=== PATIENT | male | born 1980 | race Caucasian/White ===

== ENCOUNTER 2017-06-06 18:53 | Emergency (ER) | payer MEDICAID, OTHER ==
[2017-06-06] MEDS ORDERED: HYDROCODONE/ACETAMINOPHEN 5-325 MG TABLET PO ONE (19:25)
[2017-06-06] MEDS ORDERED: KETOROLAC TROMETHAMINE 60 MG/2 ML SDV IM ONE (19:26)
--- NOTE | 2017-06-06 20:36 | RADIOLOGY REPORT (SQ) ---
EXAM DESCRIPTION: L SPINE WHOLE; T SPINE AP/LAT COMPLETED DATE/TIME: 06/06/2017 8:24 pm REASON FOR STUDY: back pain COMPARISON: None. FINDINGS: Two view thoracic spine: No fracture or bone lesion. Relatively normal alignment with mi ld multilevel disc space narrowing. Normal soft tissues. Five view lumbosacral spine including obliques: Normal alignment. Mild L5-S1 disc disease. No frac ture or bone lesion or pars defect. Normal visualized pelvis. IMPRESSION: 1. Mild spondylosis in the thoracic and lumbar spine. No fracture or worrisome bone les ion or spinal malalignment. TECHNICAL DOCUMENTATION: JOB ID: [id number]
--- NOTE | 2017-06-06 21:03 | ER Document Report ---
ED General - General Chief Complaint: Back Pain Stated Complaint: BACK PAIN Time Seen by Provider: 06/06/17 19:16 Mode of Arrival: Ambulatory Information source: Patient Notes: Patient is a 37 year old male comes ER with a complaint of back pain. He states it started this Past while moving furniture. He was lifting a large piece of furniture and lost control and twisted and dropped the piece . He denies falling but states he felt pain in the back a few minutes later. He went to work but could not lift anything. He had pain in lunbar region and t-spine area. TRAVEL OUTSIDE OF THE [place] IN LAST 30 DAYS: No - HPI Onset: Other - on 4 days ago. Onset/Duration: Constant, Persistent Quality of pain: Sharp, Throbbing Severity: Moderate Pain Level: 2 Associated symptoms: None Exacerbated by: Standing, Movement, Walking, Deep breathing Relieved by: Supine Similar symptoms previously: No Recently seen / treated by doctor: No - Related Data Allergies/Adverse Reactions: latex [Latex] Allergy (Unknown, Verified 06/06/17 19:02) morphine [Morphine] Allergy (Unknown, Verified 06/06/17 19:02) olanzapine [From Zyprexa] Allergy (Unknown, Verified 06/06/17 19:02) quetiapine fumarate [From Seroquel] Allergy (Unknown, Verified 06/06/17 19:02) Past Medical History - General Information source: Patient - Social History Smoking Status: Current Every Day Smoker Cigarette use (# per day): Yes - 1/2 pack Chew tobacco use (# tins/day): No Smoking Education Provided: Yes Frequency of alcohol use: Rare Drug Abuse: None Lives with: Family Family History: Reviewed & Not Pertinent, Other - Past Medical History Cardiac Medical History: Reports: Hx Hypercholesterolemia, Hx Hypertension Neurological Medical History: Reports: Hx Migraine - Chronic JAMES Renal/ Medical History: Denies: Hx Peritoneal Dialysis GI Medical History: Reports: Hx Gastroesophageal Reflux Disease, Hx Irritable Bowel Psychiatric Medical History: Reports: Hx Attention Deficit Hyperactivity Disorder, Hx Bipolar Disorder, Hx Depression Past Surgical History: Reports: Hx Tonsillectomy - UPPP for sleep apnea, Hx Urinary Tract Surgery - Immunizations Hx Diphtheria, Pertussis, Tetanus Vaccination: Yes Review of Systems - Review of Systems Constitutional: No symptoms reported EENT: No symptoms reported Cardiovascular: No symptoms reported Respiratory: No symptoms reported Gastrointestinal: No symptoms reported Genitourinary: No symptoms reported Male Genitourinary: No symptoms reported Musculoskeletal: Back pain, Muscle pain Skin: No symptoms reported Hematologic/Lymphatic: No symptoms reported Neurological/Psychological: No symptoms reported -: Yes All other systems reviewed and negative Physical Exam - Vital signs Vitals: Temp Pulse Resp BP Pulse Ox 97.8 F 97 20 148/88 H 98 06/06/17 19:02 06/06/17 19:02 06/06/17 19:02 06/06/17 19:02 06/06/17 19:02 Interpretation: Hypertensive - General General appearance: Other - Appears uncomfortable - HEENT Head: Normocephalic, Atraumatic Eyes: Normal Neck: Normal - Respiratory Respiratory status: No respiratory distress Chest status: Nontender Breath sounds: Normal Chest palpation: Normal - Cardiovascular Rhythm: Regular Heart sounds: Normal auscultation Murmur: No - Abdominal Inspection: Normal Distension: No distension Bowel sounds: Normal Tenderness: Nontender Organomegaly: No organomegaly - Back Notes: Patient has mildly reproducible tenderness to palpation along the mid thoracic region down to the Lumbar spine area. Straight leg raises are negative bilaterally. DTR's normal. Vascular exam normal with 2+ pedal pulses bilat. - Extremities General upper extremity: Normal inspection, Nontender General lower extremity: Normal inspection, Nontender Hip: Normal, Nontender Thigh: Normal, Nontender Knee: Normal, Nontender Calf: Normal, Nontender Ankle: Normal, Nontender Foot: Normal, Nontender - Neurological Cognition: Normal Orientation: AAOx4 Rony Coma Scale Eye Opening: Spontaneous [place] Coma Scale Verbal: Oriented Rony Coma Scale Motor: Obeys Commands Rony Coma Scale Total: 15 Knee - Reflex grade: 2 = Normal - Skin Skin Moisture: Dry Skin Color: Normal Course - Vital Signs Vital signs: Temp Pulse Resp BP Pulse Ox 98.1 F 88 16 142/89 H 97 06/06/17 21:17 06/06/17 21:17 06/06/17 21:17 06/06/17 21:17 06/06/17 21:17 - Diagnostic Test Radiology reviewed: Reports reviewed - No acute findings Discharge - Discharge Clinical Impression: Acute thoracic myofascial strain, Acute lumbar myofascial strain Condition: Good Disposition: HOME, SELF-CARE Instructions: Ice Packs ([facility]), Muscle Strain ([facility]), Oral Narcotic Medication ( [facility]) Additional Instructions: Home and rest. Medications prescribed. As we discussed you need to follow-up with a primary care physician. I will highly recommend he establish sooner or later relatively sooner so you can have someone follow this condition. Avoid lifting his anything heavy for approximately 3-4 days with the medication take his time to work to not take the pain medication while working or driving. She generally concerns or problems return to ER for a recheck. Ice to the area 3 times a day. Prescriptions: Hydrocodone/Acetaminophen [Picher 7.5-325 mg Tablet] 1 tab PO QID PRN #12 tablet PRN Reason: For Pain Scale 4-5 Methocarbamol [Robaxin 500 mg Tablet] 500 mg PO BID PRN #20 tablet PRN Reason: Forms: Elevated Blood Pressure
[2017-06-06 21:19] VITALS: BP 142/89
== END 2017-06-06 21:16 | disposition home or self-care (01) ==
LOC: ER 18:53
DX: S29.019A Strain of muscle and tendon of unspecified wall of thorax, initial encounter (principal); S39.012A Strain of muscle, fascia and tendon of lower back, initial encounter; X58.XXXA Exposure to other specified factors, initial encounter; K21.9 Gastro-esophageal reflux disease without esophagitis; E78.00 Pure hypercholesterolemia, unspecified; I10 Essential (primary) hypertension; Z91.040 Latex allergy status; Z88.6 Allergy status to analgesic agent
CPT/HCPCS: 99283; 96372; 72110; 72070; J1885

== ENCOUNTER 2017-06-09 20:43 | Emergency (ER) | payer MEDICAID ==
[2017-06-09 21:17] VITALS: BP 137/83
--- NOTE | 2017-06-09 22:54 | ER Document Report ---
ED General - General Chief Complaint: Back Pain Stated Complaint: BACK PAIN, SKIN PROBLEM ON SHOULDER Time Seen by Provider: 06/09/17 22:31 Notes: Patient is a 37-year-old male who presents with 2 different complaints. First complaint is of back pain. He has been having back pain for over a week. He was seen here a few days ago and had x-rays performed. Patient says he feels as if the pain is in the muscles along his spine. He denies any recent trauma or injuries. 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 He says last few days he has gotten to the point where he cannot roller picker a tray of chicken without it hurting his back. No weakness or numbness into his legs. No weakness or numbness into his upper extremities. No fevers. He was prescribed hydrocodone as well as Robaxin. He says these are not taken away his pain. He is able to walk without difficulty. No loss of bowel control. No urinary tension. Patient second complaint is of a small boil over his right upper back. Patient has obvious folliculitis and says that this morning his back has increased in size over the last day. No fevers. No other complaints at this time. TRAVEL OUTSIDE OF THE [place] IN LAST 30 DAYS: No - Related Data Allergies/Adverse Reactions: latex [Latex] Allergy (Unknown, Verified 06/06/17 19:02) morphine [Morphine] Allergy (Unknown, Verified 06/06/17 19:02) olanzapine [From Zyprexa] Allergy (Unknown, Verified 06/06/17 19:02) quetiapine fumarate [From Seroquel] Allergy (Unknown, Verified 06/06/17 19:02) Past Medical History - Social History Smoking Status: Current Every Day Smoker Frequency of alcohol use: Occasional Drug Abuse: None Family History: Reviewed & Not Pertinent, Other Patient has suicidal ideation: No Patient has homicidal ideation: No - Past Medical History Cardiac Medical History: Reports: Hx Hypercholesterolemia, Hx Hypertension Neurological Medical History: Reports: Hx Migraine - Chronic JAMES Renal/ Medical History: Denies: Hx Peritoneal Dialysis GI Medical History: Reports: Hx Gastroesophageal Reflux Disease, Hx Irritable Bowel Psychiatric Medical History: Reports: Hx Attention Deficit Hyperactivity Disorder, Hx Bipolar Disorder, Hx Depression Past Surgical History: Reports: Hx Tonsillectomy - UPPP for sleep apnea, Hx Urinary Tract Surgery - Immunizations Hx Diphtheria, Pertussis, Tetanus Vaccination: Yes Review of Systems - Review of Systems Notes: My Normal Review Basic REVIEW OF SYSTEMS: CONSTITUTIONAL : Denies fever, chills, or sweats. Denies recent illness.ing, or wheezing. GASTROINTESTINAL: Denies abdominal pain. Denies nausea, vomiting, or diarrhea. GENITOURINARY: Denies difficulty urinating, painful urination, burning, frequency, or blood in urine. MUSCULOSKELETAL: Back pain. SKIN: Small boil over left upper back. NEUROLOGICAL: Denies sensory or motor loss. ALL OTHER SYSTEMS REVIEWED AND NEGATIVE. Physical Exam - Vital signs Vitals: Temp Pulse Resp BP Pulse Ox 98.6 F 88 16 137/83 H 94 06/09/17 21:13 06/09/17 21:13 06/09/17 21:13 06/09/17 21:13 06/09/17 21:13 - Notes Notes: General Appearance: Well nourished, alert, cooperative, no acute distress, no obvious discomfort. Well Appearing. Vitals: reviewed, See vital signs table. Head: no swelling or tenderness to the head Eyes: PERRL, EOMI, Conjuctiva clear Neck: Supple, no neck tenderness, Back: Mild pain to palpation of the thoracic and lumbar paraspinal musculature. No step-offs or deformities or midline tenderness of the spine. Extremities: strength 5/5 in all extremities, good pulses in all extremities, no swelling or tenderness in the extremities, no edema. Skin: Small 1 cm area of induration with localized erythema over the left upper back consistent with a infected hair follicle. Neuro: speech clear, oriented x 3, normal affect, responds appropriately to questions. Distal sensation intact. Patella and Achilles reflexes are intact. Good strength with plantar dorsiflexion against resistance. Patient is able stand and walk without difficulty. Course - Re-evaluation Re-evalutation: 06/09/17 23:05 I did use an 18-gauge needle and did pull a very small amount of pus from the small boil her left back. There is very small localizing I do not feel requires a full incision and drainage. Patient will be placed in antibiotics. Patient will be given Toradol to take at home. Is encouraged not to take other NSAID medication to take this medication. Is encouraged to continue to do alternating ice and heat to his back and to continue to walk around without lifting anything heavy. He will be given a work excuse for a few days so that he can go without having to lift anything. Patient encouraged to follow-up with the primary care doctor. Patient encouraged to return to ER immediately if he has fevers, redness or swelling, or feels that the boil or his back is getting worse. Patient agrees with plan will be discharged home. Dictation of this chart was performed using voice recognition software; therefore, there may be some unintended grammatical errors. - Vital Signs Vital signs: Temp Pulse Resp BP Pulse Ox 98.6 F 88 16 137/83 H 94 06/09/17 21:13 06/09/17 21:13 06/09/17 21:13 06/09/17 21:13 06/09/17 21:13 Discharge - Discharge Clinical Impression: Folliculitis Acute thoracic myofascial strain Qualifiers: Encounter type: subsequent encounter Qualified Code(s): S29.019D - Strain of muscle and tendon of unspecified wall of thorax, subsequent encounter Acute lumbar myofascial strain Qualifiers: Encounter type: subsequent encounter Qualified Code(s): S39.012D - Strain of muscle, fascia and tendon of lower back, subsequent encounter Condition: Good Disposition: HOME, SELF-CARE Additional Instructions: PLease take the antibiotic as prescribed. Please do not lift any heavy objects over the next 3 days. It is good to rest, but you should still walk around so that the muscles in you back do not become stiff. Please do not make Motrin, Ibuprofen, Aleve, or aspirin when taking the Toradol. Follow up with a physician in 2-3 days for reevaluation. Return to the ER immediately if you have fevers, increasing swelling or redness over the boil in you back, weakness or numbness into your legs, loss of bowel control, or inability to urinate. Prescriptions: Ketorolac Tromethamine [Toradol 10 mg Tablet] 10 mg PO Q8HP PRN #15 tablet PRN Reason: Pain Scale Of 3 Clindamycin HCl 300 mg PO ASDIR #56 capsule Forms: Return to Work
== END 2017-06-09 23:15 | disposition home or self-care (01) ==
LOC: ER 20:43
DX: S29.019D Strain of muscle and tendon of unspecified wall of thorax, subsequent encounter (principal); S39.012D Strain of muscle, fascia and tendon of lower back, subsequent encounter; L73.9 Follicular disorder, unspecified; M54.9 Dorsalgia, unspecified; L98.9 Disorder of the skin and subcutaneous tissue, unspecified; M54.6 Pain in thoracic spine; F17.200 Nicotine dependence, unspecified, uncomplicated; X50.0XXA Overexertion from strenuous movement or load, initial encounter
CPT/HCPCS: 99283

== ENCOUNTER 2017-07-17 22:49 | Emergency (ER) | payer MEDICAID ==
[2017-07-17 23:20] VITALS: BP 127/88
[2017-07-18] MEDS ORDERED: HYDROCODONE/ACETAMINOPHEN 5-325 MG TABLET PO ONE (00:43)
--- NOTE | 2017-07-18 01:07 | RADIOLOGY REPORT (SQ) ---
EXAM DESCRIPTION: FINGER LEFT CLINICAL HISTORY: thumb hit wall at ice skating rink COMPARISON: None. FINDINGS: Single view of the left hand and 2 views of the left thumb. No acute fracture or dislocation. Normal osseous mineralization. Minimal osteophytic spurring at the first proximal interphalangeal joint. IMPRESSION: No acute fracture or dislocation.
[2017-07-18] MEDS ORDERED: HYDROCODONE/ACETAMINOPHEN 5-325 MG 6 TAB/DSPK PO PRN (01:08)
--- NOTE | 2017-07-18 01:08 | ER Document Report ---
HPI - HPI Patient complains to provider of: thumb injury Onset: This afternoon Onset/Duration: Sudden Quality of pain: Achy Pain Level: 4 Context: Patient states that he was ice skating today and slipped hitting his hand against a wall. Patient complains of left thumb pain. Patient is right-hand dominant. Associated Symptoms: Other - Left thumb injury Exacerbated by: Movement Relieved by: Denies Similar symptoms previously: No Recently seen / treated by doctor: No - ROS ROS below otherwise negative: Yes Systems Reviewed and Negative: Yes All other systems reviewed and negative - MUSCULOSKELETAL Musculoskeletal: REPORTS: Extremity pain - DERM Skin Color: Normal Skin Problems: None Past Medical History - General Information source: Patient - Social History Smoking Status: Current Every Day Smoker Smoking Education Provided: Yes Frequency of alcohol use: Occasional Drug Abuse: None Occupation: [employer] Family History: Reviewed & Not Pertinent, Other - Past Medical History Cardiac Medical History: Reports: Hx Hypercholesterolemia, Hx Hypertension Neurological Medical History: Reports: Hx Migraine - Chronic JAMES Renal/ Medical History: Denies: Hx Peritoneal Dialysis GI Medical History: Reports: Hx Gastroesophageal Reflux Disease, Hx Irritable Bowel Psychiatric Medical History: Reports: Hx Attention Deficit Hyperactivity Disorder, Hx Bipolar Disorder, Hx Depression Past Surgical History: Reports: Hx Tonsillectomy - UPPP for sleep apnea, Hx Urinary Tract Surgery - Immunizations Hx Diphtheria, Pertussis, Tetanus Vaccination: Yes Vertical Provider Document - CONSTITUTIONAL Agree With Documented VS: Yes Exam Limitations: No Limitations General Appearance: WD/WN, No Apparent Distress - INFECTION CONTROL TRAVEL OUTSIDE OF THE [place] IN LAST 30 DAYS: No - HEENT HEENT: Atraumatic, Normocephalic - NECK Neck: Normal Inspection - RESPIRATORY Respiratory: No Respiratory Distress O2 Sat by Pulse Oximetry: 97 - CARDIOVASCULAR Pulses: Normal: Radial - MUSCULOSKELETAL/EXTREMETIES Musculoskeletal/Extremeties: MAEW, FROM, Tender - Left thumb tenderness about MCP and PIP joints, No Edema. negative: Eccymosis Notes: No tendon deficit - NEURO Level of Consciousness: Awake, Alert, Appropriate Motor/Sensory: No Motor Deficit, No Sensory Deficit - DERM Integumentary: Warm, Dry, No Rash Course - Vital Signs Vital signs: Temp Pulse Resp BP Pulse Ox 98.3 F 88 18 127/88 H 97 07/17/17 23:16 07/17/17 23:16 07/17/17 23:16 07/17/17 23:16 07/17/17 23:16 - Diagnostic Test Radiology reviewed: Pending, Image reviewed Procedures - Immobilization Left Thumb Pre-Proc Neuro Vasc Exam: Normal Immobilizer type: Thumb spica Performed by: PCT Post-Proc Neuro Vasc Exam: Normal Alignment checked and good: Yes Discharge - Discharge Clinical Impression: Left thumb sprain Qualifiers: Encounter type: initial encounter Sprain of finger site: unspecified site Qualified Code(s): S63.602A - Unspecified sprain of left thumb, initial encounter Condition: Stable Disposition: HOME, SELF-CARE Instructions: Ice & Elevation ([facility]), Oral Narcotic Medication ([facility]), Sprained Thumb ([facility]), Temporary Splint ([facility]) Additional Instructions: Return immediately for any new or worsening symptoms Followup with your primary care provider, call tomorrow to make a followup appointment Follow-up with reporting specialist for any continued pain or problems Wear splint for the next 4 days and then remove. If still having pain follow- up with orthopedic doctor Prescriptions: Naproxen [Naprosyn 250 Nmg Tablet] 1 tab PO BID #14 tablet Forms: Return to Work Referrals: [facility] [Provider Group] - Follow up as needed
== END 2017-07-18 02:00 | disposition home or self-care (01) ==
LOC: ER 22:49
PROC: 2W3HX1Z Immobilization of Left Thumb using Splint (ICD-10-PCS; principal; 2017-07-17)
DX: S63.602A Unspecified sprain of left thumb, initial encounter (principal); W01.198A Fall on same level from slipping, tripping and stumbling with subsequent striking against other object, initial encounter; F17.210 Nicotine dependence, cigarettes, uncomplicated; E78.00 Pure hypercholesterolemia, unspecified; I10 Essential (primary) hypertension
CPT/HCPCS: 99283

== ENCOUNTER 2017-08-10 20:39 | Emergency (ER) | payer MEDICAID ==
--- NOTE | 2017-08-10 23:44 | ER Document Report ---
HPI - HPI Pain Level: 5 Notes: Patient is a 37-year-old male with history of bipolar presents ED complaining of nasal congestion/discharge, sore throat, dry nonproductive cough, and occasional loose stool 1 day. Patient states that he does need a work note because of his recent illness. He is otherwise eating and drinking without any difficulties. He is urinating normally. Patient does admit to smoking but denies IV drug use. Denies any headache, fever, neck pain, chest pain, palpitations, syncope, shortness of breath, wheeze, dyspnea, abdominal pain, nausea/vomiting, urinary retention, dysuria, hematuria, loss of control of bowel or bladder, numbness/tingling, or rash. - ROS Notes: REVIEW OF SYSTEMS: CONSTITUTIONAL : Denies fever, chills, or sweats. Denies recent illness. EENT: see hpi CARDIOVASCULAR: Denies chest pain. Denies palpitations or racing or irregular heart beat. Denies ankle edema. RESPIRATORY: see hpi. Denies shortness of breath, difficulty breathing, or wheezing. GASTROINTESTINAL: see hpi. no melena, hematochezia. GENITOURINARY: Denies difficulty urinating, painful urination, burning, frequency, blood in urine, or discharge. MUSCULOSKELETAL: Denies back or neck pain or stiffness. Denies joint pain or swelling. SKIN: Denies rash, lesions or sores. NEUROLOGICAL: Denies confusion or altered mental status. Denies passing out or loss of consciousness. Denies dizziness or lightheadedness. Denies headache. Denies weakness or paralysis or loss of use of either side. Denies problems with gait or speech. Denies sensory loss, numbness, or tingling. Denies seizures. PSYCHIATRIC: Denies anxiety or stress. Denies depression, suicidal ideation, or homicidal ideation. ALL OTHER SYSTEMS REVIEWED AND NEGATIVE. Dictation was performed using Vidit voice recognition software - CONSTITUTIONAL Constitutional: REPORTS: Fever - 99.6. DENIES: Chills - EENT EENT: DENIES: Sore Throat, Ear Pain, Eye problems - NEURO Neurology: DENIES: Headache, Weakness, Vision blurred, Dizzinesss / Vertigo - CARDIOVASCULAR Cardiovascular: DENIES: Chest pain - RESPIRATORY Respiratory: DENIES: Trouble Breathing, Coughing - GASTROINTESTINAL Gastrointestinal: DENIES: Abdominal Pain, Black / Bloody Stools - URINARY Urinary: DENIES: Dysuria, Urgency, Frequency - MUSCULOSKELETAL Musculoskeletal: REPORTS: Extremity pain Past Medical History - Social History Smoking Status: Current Every Day Smoker Family History: Reviewed & Not Pertinent, Other Patient has suicidal ideation: No Patient has homicidal ideation: No - Past Medical History Cardiac Medical History: Reports: Hx Hypercholesterolemia, Hx Hypertension Neurological Medical History: Reports: Hx Migraine - Chronic JAMES Renal/ Medical History: Denies: Hx Peritoneal Dialysis GI Medical History: Reports: Hx Gastroesophageal Reflux Disease, Hx Irritable Bowel Psychiatric Medical History: Reports: Hx Attention Deficit Hyperactivity Disorder, Hx Bipolar Disorder, Hx Depression Past Surgical History: Reports: Hx Tonsillectomy - UPPP for sleep apnea, Hx Urinary Tract Surgery - Immunizations Hx Diphtheria, Pertussis, Tetanus Vaccination: Yes Vertical Provider Document - CONSTITUTIONAL Agree With Documented VS: Yes Notes: PHYSICAL EXAMINATION: GENERAL: Well-appearing, well-nourished and in no acute distress. A&Ox4 HEAD: Atraumatic, normocephalic. EYES: Pupils equal round and reactive to light, extraocular movements intact, sclera anicteric, conjunctiva are normal. ENT: EAC clear b/l. TM's intact b/l without erythema, fluid, or perforation. Nares patent and without discharge. oropharynx clear without exudates. No tonsilar hypertrophy or erythema. Moist mucous membranes. No sinus tenderness. Uvula midline. No palatine shift. No tongue protrusion or airway compromise. NECK: Normal range of motion, supple without lymphadenopathy. No ridigity/ meningismus. LUNGS: Breath sounds clear to auscultation bilaterally and equal. No wheezes rales or rhonchi. HEART: Regular rate and rhythm without murmurs, rubs, gallops. ABDOMEN: Soft, nontender, nondistended abdomen. No guarding, no rebound. No masses appreciated. Normal bowel sounds present. No CVA tenderness bilaterally. Extremities: No cyanosis, clubbing, or edema b/l. Peripheral pulses 2+. Capillary refill less than 3 seconds. NEUROLOGICAL: Normal speech, normal gait. Normal sensory, motor exams PSYCH: Normal mood, normal affect. SKIN: Warm, Dry, normal turgor, no rashes or lesions noted. - INFECTION CONTROL TRAVEL OUTSIDE OF THE [place] IN LAST 30 DAYS: No - RESPIRATORY O2 Sat by Pulse Oximetry: 99 Course - Re-evaluation Re-evalutation: 08/11/17 00:55 Patient is an afebrile, well-hydrated, 37-year-old male who presents ED with acute URI, suspect viral at this time. Vitals are stable. PE is otherwise unremarkable. Rapid influenza was negative. No other imaging or labs warranted at this time. Low suspicion for any ACS, PE, pneumothorax, pericarditis, dissection, respiratory compromise, severe dehydration, sepsis, meningitis, or other systemic emergent condition at this time. Patient is aware that his condition can change from initial presentation and he needs to monitor symptoms closely and seek medical attention for any acute changes. Recommend conservative measures for symptoms. Recheck with your PCM in 3-5 days. Return to the ED with any worsening/concerning symptoms otherwise as reviewed in discharge. Patient is in agreement. Work note given. - Vital Signs Vital signs: Temp Pulse Resp BP Pulse Ox 98.9 F 114 H 20 137/90 H 99 08/10/17 20:59 08/10/17 20:59 08/10/17 20:59 08/10/17 20:59 08/10/17 20:59 Discharge - Discharge Clinical Impression: Acute URI Condition: Stable Disposition: HOME, SELF-CARE Instructions: Upper Respiratory Illness ([facility]) Additional Instructions: Maintain adequate fluid and food intake [place] diet ([employer] Bananas, rice, apples, toast, etc tylenol if needed Monitor for any worsening symptoms over the counter cold medication as needed for symptoms Humidified air may help F/u: with your PCM in 3-5 days for a recheck Return to the ED with any worsening symptoms and/or development of fever, headache, chest pain, palpitations, syncope, shortness of breath, trouble breathing, abdominal pain, n/v/d, blood in stool/urine, weakness, or other worsening symptoms that are concerning to you. Aintain adequate fluid intake Take meds as directed Forms: Elevated Blood Pressure, Smoking Cessation Education, Return to Work Referrals: [facility] [Provider Group] - Follow up as needed [facility] [Provider Group] - Follow up as needed
[2017-08-11 01:03] VITALS: BP 146/83
== END 2017-08-11 01:33 | disposition home or self-care (01) ==
LOC: ER 20:39
DX: J02.9 Acute pharyngitis, unspecified (principal); R09.81 Nasal congestion; F17.200 Nicotine dependence, unspecified, uncomplicated; E78.00 Pure hypercholesterolemia, unspecified; I10 Essential (primary) hypertension
CPT/HCPCS: 87804; 99283

== ENCOUNTER 2017-08-12 20:25 | Emergency (ER) | payer MEDICAID ==
[2017-08-12 20:35] VITALS: BP 130/94
[2017-08-12 21:39] LABS: APPEARANCE,URINE CLEAR; BILIRUBIN,URINE NEGATIVE (NEGATIVE); GLUCOSE, URINE NEGATIVE (NEGATIVE); KETONES,URINE NEGATIVE (NEGATIVE); LEUKOCYTE ESTERASE,URINE TRACE (NEGATIVE); NITRITE,URINE NEGATIVE (NEGATIVE); PROTEIN,URINE NEGATIVE (NEGATIVE); URINE SPECIFIC GRAVITY 1.014; UROBILINOGEN,URINE NEGATIVE mg/dL (<2.0)
--- NOTE | 2017-08-12 21:59 | ER Document Report ---
ED General - General Chief Complaint: Diarrhea Stated Complaint: NAUSEA Time Seen by Provider: 08/12/17 21:31 Notes: 37 years old male who was seen here a few days ago, presents today with multiple complaints including runny nose sore throat cough nausea vomited a few times diarrhea, pain over upper limbs and lower limbs and headache. TRAVEL OUTSIDE OF THE [place] IN LAST 30 DAYS: No - Related Data Allergies/Adverse Reactions: latex [Latex] Allergy (Unknown, Verified 06/06/17 19:02) morphine [Morphine] Allergy (Unknown, Verified 06/06/17 19:02) olanzapine [From Zyprexa] Allergy (Unknown, Verified 06/06/17 19:02) quetiapine fumarate [From Seroquel] Allergy (Unknown, Verified 06/06/17 19:02) Past Medical History - Social History Smoking Status: Current Every Day Smoker Chew tobacco use (# tins/day): No Frequency of alcohol use: Occasional Drug Abuse: None Family History: Reviewed & Not Pertinent, Other Patient has suicidal ideation: No Patient has homicidal ideation: No - Past Medical History Cardiac Medical History: Reports: Hx Hypercholesterolemia, Hx Hypertension Neurological Medical History: Reports: Hx Migraine - Chronic JAMES Renal/ Medical History: Denies: Hx Peritoneal Dialysis GI Medical History: Reports: Hx Gastroesophageal Reflux Disease, Hx Irritable Bowel Psychiatric Medical History: Reports: Hx Attention Deficit Hyperactivity Disorder, Hx Bipolar Disorder, Hx Depression Past Surgical History: Reports: Hx Tonsillectomy - UPPP for sleep apnea, Hx Urinary Tract Surgery - Immunizations Hx Diphtheria, Pertussis, Tetanus Vaccination: Yes Review of Systems - Review of Systems Notes: REVIEW OF SYSTEMS: CONSTITUTIONAL : As per history of complain EENT: Denies eye, ear, throat, or mouth pain or symptoms. Denies nasal or sinus congestion or discharge. Denies throat, tongue, or mouth swelling or difficulty swallowing. CARDIOVASCULAR: Denies chest pain. Denies palpitations or racing or irregular heart beat. Denies ankle edema. RESPIRATORY: Denies cough, cold, or chest congestion. Denies shortness of breath, difficulty breathing, or wheezing. GASTROINTESTINAL: Denies abdominal pain or distention. Denies nausea, vomiting , or diarrhea. Denies blood in vomitus, stools, or per rectum. Denies black, tarry stools. Denies constipation. GENITOURINARY: Denies difficulty urinating, painful urination, burning, frequency, blood in urine, or discharge. MUSCULOSKELETAL: Denies back or neck pain or stiffness. Denies joint pain or swelling. SKIN: Denies rash, lesions or sores. HEMATOLOGIC : Denies easy bruising or bleeding. LYMPHATIC: Denies swollen, enlarged glands. NEUROLOGICAL: Denies confusion or altered mental status. Denies passing out or loss of consciousness. Denies dizziness or lightheadedness. Denies headache. Denies weakness or paralysis or loss of use of either side. Denies problems with gait or speech. Denies sensory loss, numbness, or tingling. Denies seizures. PSYCHIATRIC: Denies anxiety or stress. Denies depression, suicidal ideation, or homicidal ideation. ALL OTHER SYSTEMS REVIEWED AND NEGATIVE. Dictation was performed using [employer] voice recognition software PHYSICAL EXAMINATION: GENERAL: Well-appearing, well-nourished and in no acute distress. Obese not seems to be in any distress, when I walked into the room he was laying on the bed with his significant other not showing any discomfort happily talking and laughing. HEAD: Atraumatic, normocephalic. EYES: Pupils equal round and reactive to light, extraocular movements intact, sclera anicteric, conjunctiva are normal. ENT: Nares patent, oropharynx clear without exudates. Moist mucous membranes. NECK: Normal range of motion, supple without lymphadenopathy LUNGS: Breath sounds clear to auscultation bilaterally and equal. No wheezes rales or rhonchi. HEART: Regular rate and rhythm without murmurs ABDOMEN: Soft, nontender, nondistended abdomen. No guarding, no rebound. No masses appreciated. Musculoskeletal: Normal range of motion, no pitting or edema. No cyanosis. NEUROLOGICAL: Cranial nerves grossly intact. Normal speech, normal gait. Normal sensory, motor exams PSYCH: Normal mood, normal affect. SKIN: Warm, Dry, normal turgor, no rashes or lesions noted. Physical Exam - Vital signs Vitals: Temp Pulse Resp BP Pulse Ox 98.7 F 99 24 H 130/94 H 98 08/12/17 20:34 08/12/17 20:34 08/12/17 20:34 08/12/17 20:34 08/12/17 20:34 Course - Vital Signs Vital signs: Temp Pulse Resp BP Pulse Ox 98.7 F 99 24 H 130/94 H 98 08/12/17 20:34 08/12/17 20:34 08/12/17 20:34 08/12/17 20:34 08/12/17 20:34 - Laboratory Result Diagrams: 08/12/17 21:50 08/12/17 21:50 Laboratory results interpreted by me: 08/12/17 08/12/17 21:25 21:50 WBC 14.5 H Absolute Lymphocytes 5.4 H Urine Blood SMALL H Ur Leukocyte Esterase TRACE H - Diagnostic Test Radiology results interpreted by me: 08/12/17 23:22 Chest X ray- rported by radiology -Normal Discharge - Discharge Clinical Impression: Bronchitis Headache Qualifiers: Headache type: unspecified Headache chronicity pattern: acute headache Intractability: not intractable Qualified Code(s): R51 - Headache Condition: Fair Disposition: HOME, SELF-CARE Instructions: Bronchitis ([facility]) Prescriptions: Ketorolac Tromethamine [Toradol 10 mg Tablet] 10 mg PO Q8HP PRN #10 tablet PRN Reason: Azithromycin [Zithromax Tri-Ivan] 500 mg PO DAILY #1 pkg Referrals: [facility] [Provider Group] - Follow up as needed
[2017-08-12 22:04] LABS: ABSOLUTE BASOPHILS # (AUTO) 0.1 10^3/uL (0.0-0.2); ABSOLUTE EOSINOPHILS # (AUTO) 0.1 10^3/uL (0.0-0.6); ABSOLUTE LYMPHOCYTES (AUTO) 5.4 10^3/uL (0.5-4.7); ABSOLUTE NEUT (AUTO) 7.7 10^3/uL (1.7-8.2); BASOPHILS % (AUTO) 0.9 % (0-2); EOSINOPHILS % (AUTO) 0.9 % (0-6); HEMATOCRIT 47.4 % (37.9-51.0); HEMOGLOBIN 16.7 g/dL (13.5-17.0); HGB HCT DIFFERENCE 2.7; LYMPHOCYTES % (AUTO) 37.6 % (13-45); MEAN CORPUSCULAR HEMOGLOBIN 30.9 pg (27.0-33.4); MEAN CORPUSCULAR HGB CONC 35.2 g/dL (32.0-36.0); MEAN CORPUSCULAR VOLUME 88 fl (80-97); RED CELL DISTRIBUTION WIDTH 13.1 % (11.5-14.0); SEGMENTED NEUTROPHILS % (AUTO) 53.6 % (42-78); WHITE BLOOD COUNT 14.5 10^3/uL (4.0-10.5)
[2017-08-12 22:21] LABS: ALANINE AMINOTRANSFERASE 26 U/L (21-72); ALBUMIN 4.4 g/dL (3.5-5.0); ALKALINE PHOSPHATASE 91 U/L (38-126); ANION GAP 14 (5-19); ASPARTATE AMINO TRANSFERASE 23 U/L (17-59); BILIRUBIN,DIRECT 0.2 mg/dL (0.0-0.4); BILIRUBIN,TOTAL 0.3 mg/dL (0.2-1.3); BLOOD UREA NITROGEN 11 mg/dL (7-20); CALCIUM 9.4 mg/dL (8.4-10.2); CARBON DIOXIDE 23 mmol/L (22-30); CHLORIDE 105 mmol/L (98-107); CREATININE RESULT 0.79 mg/dL (0.52-1.25); GLUCOSE 103 mg/dL (75-110); LIPASE 110.4 U/L (23-300); POTASSIUM 3.7 mmol/L (3.6-5.0); SODIUM 141.8 mmol/L (137-145); TOTAL PROTEIN 7.2 g/dL (6.3-8.2)
--- NOTE | 2017-08-12 22:50 | RADIOLOGY REPORT (SQ) ---
EXAM DESCRIPTION: CHEST PA/LAT COMPLETED DATE/TIME: 08/12/2017 10:36 pm REASON FOR STUDY: Cough COMPARISON: 07/28/2013 EXAM PARAMETERS: NUMBER OF VIEWS: two views TECHNIQUE: Digital Frontal and Lateral radiographic views of the chest acquired. RADIATION DOSE: NA LIMITATIONS: none FINDINGS: LUNGS AND PLEURA: No acute opacities, masses or pneumothorax. No pleural effusion. MEDIASTINUM AND HILAR STRUCTURES: No masses or contour abnormalities. HEART AND VASCULAR STRUCTURES: Heart normal size. No evidence for failure. BONES: No acute findings. HARDWARE: None in the chest. OTHER: No other significant finding. IMPRESSION: No acute findings. TECHNICAL DOCUMENTATION: JOB ID: [id number] [place]-72 2010 [employer]- All Rights Reserved
[2017-08-12] MEDS ORDERED: KETOROLAC TROMETHAMINE INJ/PF 30 MG/1 ML SDV IV ONE (23:21)
[2017-08-12] MEDS ORDERED: AZITHROMYCIN 250 MG TABLET PO ONE (23:26)
== END 2017-08-13 00:24 | disposition home or self-care (01) ==
LOC: ER 20:25
DX: J40 Bronchitis, not specified as acute or chronic (principal); J02.9 Acute pharyngitis, unspecified; R51 Headache; R11.2 Nausea with vomiting, unspecified; R09.89 Other specified symptoms and signs involving the circulatory and respiratory systems; R05 Cough; F17.200 Nicotine dependence, unspecified, uncomplicated; I10 Essential (primary) hypertension; Z91.040 Latex allergy status; Z88.5 Allergy status to narcotic agent; Z88.8 Allergy status to other drugs, medicaments and biological substances; Z87.19 Personal history of other diseases of the digestive system; Z86.69 Personal history of other diseases of the nervous system and sense organs
CPT/HCPCS: 99284; 96374; 36415; 83690; 85025; 80053; 81001; 71020; Q0144; J1885

== ENCOUNTER 2017-08-25 13:40 | Emergency (ER) | payer MEDICAID ==
[2017-08-25] MEDS ORDERED: ONDANSETRON HCL INJ/PF 4 MG/2 ML SDV IV ONE (14:19)
--- NOTE | 2017-08-25 14:22 | ER Document Report ---
ED Medical Screen (RME) - General Chief Complaint: Abdominal Pain Stated Complaint: ABDOMINAL PAIN Time Seen by Provider: 08/25/17 14:14 Notes: 37-year-old male past medical history IBS here with complaints of epigastric abdominal pain and nausea. He states that this is different pain from his "IBS pain" in the his usual baseline pain is in the lower abdomen. His IBS does not usually cause him to have upper abdominal pain. He has had nausea but no vomiting. He has diarrhea at baseline and this is unchanged. He has tried nausea medication at home with minimal relief. Has not taken anything for the pain however. EXAM Minimal epigastric tenderness to palpation No right upper quadrant tenderness to palpation No peritoneal signs TRAVEL OUTSIDE OF THE [place] IN LAST 30 DAYS: No - Related Data Allergies/Adverse Reactions: latex [Latex] Allergy (Unknown, Verified 08/25/17 13:40) morphine [Morphine] Allergy (Unknown, Verified 08/25/17 13:40) olanzapine [From Zyprexa] Allergy (Unknown, Verified 08/25/17 13:40) quetiapine fumarate [From Seroquel] Allergy (Unknown, Verified 08/25/17 13:40) Home Medications: Current Home Medications No Home Medications 08/25/17 [History] Past Medical History - Social History Frequency of alcohol use: Occasional Drug Abuse: None - Past Medical History Cardiac Medical History: Reports: Hx Hypercholesterolemia, Hx Hypertension Neurological Medical History: Reports: Hx Migraine - Chronic JAMES Renal/ Medical History: Denies: Hx Peritoneal Dialysis GI Medical History: Reports: Hx Gastroesophageal Reflux Disease, Hx Irritable Bowel Psychiatric Medical History: Reports: Hx Attention Deficit Hyperactivity Disorder, Hx Bipolar Disorder, Hx Depression Past Surgical History: Reports: Hx Tonsillectomy - UPPP for sleep apnea, Hx Urinary Tract Surgery - Immunizations Hx Diphtheria, Pertussis, Tetanus Vaccination: Yes Physical Exam - Vital signs Vitals: Temp Pulse Resp BP Pulse Ox 97.7 F 84 20 143/88 H 99 08/25/17 13:45 08/25/17 13:45 08/25/17 13:45 08/25/17 13:45 08/25/17 13:45 Course - Vital Signs Vital signs: Temp Pulse Resp BP Pulse Ox 97.7 F 84 20 143/88 H 99 08/25/17 13:45 08/25/17 13:45 08/25/17 13:45 08/25/17 13:45 08/25/17 13:45
[2017-08-25 14:52] LABS: ABSOLUTE BASOPHILS # (AUTO) 0.1 10^3/uL (0.0-0.2); ABSOLUTE EOSINOPHILS # (AUTO) 0.1 10^3/uL (0.0-0.6); ABSOLUTE LYMPHOCYTES (AUTO) 4.3 10^3/uL (0.5-4.7); ABSOLUTE MONOCYTES (AUTO) 0.8 10^3/uL (0.1-1.4); ABSOLUTE NEUT (AUTO) 6.8 10^3/uL (1.7-8.2); BASOPHILS % (AUTO) 0.6 % (0-2); EOSINOPHILS % (AUTO) 0.9 % (0-6); HEMATOCRIT 49.6 % (37.9-51.0); LYMPHOCYTES % (AUTO) 35.3 % (13-45); MEAN CORPUSCULAR HEMOGLOBIN 30.2 pg (27.0-33.4); MEAN CORPUSCULAR HGB CONC 34.3 g/dL (32.0-36.0); MEAN CORPUSCULAR VOLUME 88 fl (80-97); MONOCYTES % (AUTO) 6.8 % (3-13); PLATELET COUNT 290 10^3/uL (150-450); RED BLOOD COUNT 5.63 10^6/uL (4.35-5.55); RED CELL DISTRIBUTION WIDTH 13.4 % (11.5-14.0); SEGMENTED NEUTROPHILS % (AUTO) 56.4 % (42-78); TOTAL CELLS COUNTED % (AUTO) 100 %; WHITE BLOOD COUNT 12.1 10^3/uL (4.0-10.5)
[2017-08-25] MEDS ORDERED: ONDANSETRON 4 MG TAB.RAPDIS ONE (14:53)
[2017-08-25 15:07] LABS: ALANINE AMINOTRANSFERASE 34 U/L (21-72); ALBUMIN 4.6 g/dL (3.5-5.0); ALKALINE PHOSPHATASE 91 U/L (38-126); ANION GAP 11 (5-19); ASPARTATE AMINO TRANSFERASE 24 U/L (17-59); BILIRUBIN,DIRECT 0.2 mg/dL (0.0-0.4); BILIRUBIN,TOTAL 0.4 mg/dL (0.2-1.3); BLOOD UREA NITROGEN 9 mg/dL (7-20); CALCIUM 9.8 mg/dL (8.4-10.2); CARBON DIOXIDE 26 mmol/L (22-30); CHLORIDE 104 mmol/L (98-107); GLUCOSE 86 mg/dL (75-110); LIPASE 85.1 U/L (23-300); POTASSIUM 4.1 mmol/L (3.6-5.0); SODIUM 140.9 mmol/L (137-145); TOTAL PROTEIN 7.6 g/dL (6.3-8.2)
[2017-08-25] MEDS ORDERED: MAG HYDROX/AL HYDROX/SIMETH SUSP 30 ML UDCUP PO ONE (15:58)
[2017-08-25] MEDS ORDERED: LIDOCAINE 2% VISCOUS SOLN 20 ML UDCUP PO ONE (15:58)
[2017-08-25] MEDS ORDERED: METOCLOPRAMIDE HCL ORAL SOLN 10 MG/10 ML UDCUP PO ONE (15:58)
--- NOTE | 2017-08-25 16:04 | ER Document Report ---
ED General - General Chief Complaint: Abdominal Pain Stated Complaint: ABDOMINAL PAIN Time Seen by Provider: 08/25/17 14:14 TRAVEL OUTSIDE OF THE [place] IN LAST 30 DAYS: No - HPI Notes: Patient is a 37-year-old male with a history of IBS who presents to the ED complaining of epigastric pain that began on Wednesday which led to nausea and vomiting for the next 1-2 days. Patient states that he has had nausea today without any vomiting. Patient continues to have soreness to his epigastrium. Patient has been keeping fluids down today, but has not been trying to eat any solids. Patient states that he has chronic issues with diarrhea, but has not noticed any acute changes. He denies any other recent illness. Patient states that he did eat clams the day before his symptoms began which is relatively new for him. He has no other concerns or complaints at this time. Denies any headache, fever, neck pain, URI, sore throat, chest pain, palpitations, syncope , cough, shortness of breath, wheeze, dyspnea, melena, hematochezia, hematemesis , urinary retention, dysuria, hematuria, or rash. - Related Data Allergies/Adverse Reactions: latex [Latex] Allergy (Unknown, Verified 08/25/17 13:40) morphine [Morphine] Allergy (Unknown, Verified 08/25/17 13:40) olanzapine [From Zyprexa] Allergy (Unknown, Verified 08/25/17 13:40) quetiapine fumarate [From Seroquel] Allergy (Unknown, Verified 08/25/17 13:40) Past Medical History - Social History Smoking Status: Current Every Day Smoker Frequency of alcohol use: Occasional Drug Abuse: None Family History: Reviewed & Not Pertinent, Other Patient has suicidal ideation: No Patient has homicidal ideation: No - Past Medical History Cardiac Medical History: Reports: Hx Hypercholesterolemia, Hx Hypertension Neurological Medical History: Reports: Hx Migraine - Chronic JAMES Renal/ Medical History: Denies: Hx Peritoneal Dialysis GI Medical History: Reports: Hx Gastroesophageal Reflux Disease, Hx Irritable Bowel Psychiatric Medical History: Reports: Hx Attention Deficit Hyperactivity Disorder, Hx Bipolar Disorder, Hx Depression Past Surgical History: Reports: Hx Tonsillectomy - UPPP for sleep apnea, Hx Urinary Tract Surgery - Immunizations Hx Diphtheria, Pertussis, Tetanus Vaccination: Yes Review of Systems - Review of Systems Notes: REVIEW OF SYSTEMS: CONSTITUTIONAL : Denies fever, chills, or sweats. Denies recent illness. EENT: Denies eye, ear, throat, or mouth pain or symptoms. Denies nasal or sinus congestion or discharge. Denies throat, tongue, or mouth swelling or difficulty swallowing. CARDIOVASCULAR: Denies chest pain. Denies palpitations or racing or irregular heart beat. Denies ankle edema. RESPIRATORY: Denies cough, cold, or chest congestion. Denies shortness of breath, difficulty breathing, or wheezing. GASTROINTESTINAL: see hpi GENITOURINARY: Denies difficulty urinating, painful urination, burning, frequency, blood in urine, or discharge. MUSCULOSKELETAL: Denies back or neck pain or stiffness. Denies joint pain or swelling. SKIN: Denies rash, lesions or sores. NEUROLOGICAL: Denies confusion or altered mental status. Denies passing out or loss of consciousness. Denies dizziness or lightheadedness. Denies headache. Denies problems with gait or speech. Denies sensory loss, numbness , or tingling. Denies seizures. ALL OTHER SYSTEMS REVIEWED AND NEGATIVE. Dictation was performed using [employer] voice recognition software Physical Exam - Vital signs Vitals: Temp Pulse Resp BP Pulse Ox 97.7 F 84 20 143/88 H 99 08/25/17 13:45 08/25/17 13:45 08/25/17 13:45 08/25/17 13:45 08/25/17 13:45 Notes: PHYSICAL EXAMINATION: GENERAL: Well-appearing, well-nourished and in no acute distress. A&Ox4 HEAD: Atraumatic, normocephalic. EYES: Pupils equal round and reactive to light, extraocular movements intact, sclera anicteric, conjunctiva are normal. ENT: Nares patent and without discharge. oropharynx clear without exudates. No tonsilar hypertrophy or erythema. Moist mucous membranes. NECK: Normal range of motion, supple without lymphadenopathy LUNGS: Breath sounds clear to auscultation bilaterally and equal. No wheezes rales or rhonchi. HEART: Regular rate and rhythm without murmurs, rubs, gallops. ABDOMEN: Soft, nondistended abdomen. No guarding, no rebound. No masses appreciated. Normal bowel sounds present. No CVA tenderness bilaterally. + epigastric tenderness. Lucero negative. McBurney's point negative. Musculoskeletal: FROM to passive/active. Strength 5+/5. Extremities: No cyanosis, clubbing, or edema b/l. Peripheral pulses 2+. Capillary refill less than 3 seconds. NEUROLOGICAL: Cranial nerves grossly intact. Normal speech, normal gait. Normal sensory, motor exams PSYCH: Normal mood, normal affect. SKIN: Warm, Dry, normal turgor, no rashes or lesions noted. Course - Re-evaluation Re-evalutation: 08/25/17 17:13 Patient is an afebrile, well-hydrated, 37-year-old male who presents to the ED with epigastric pain, suspect gastritis vs GERD vs viral illness. Vitals are stable. PE is otherwise unremarkable. Chest x-ray was unremarkable for any acute pathology. CBC showed a mildly elevated white count without shift, correlates well with vomiting yesterday. CMP and lipase are unremarkable for any acute pathology including liver enzymes. Patient has been in no distress while in the ED and has not been visualized to appear in any discomfort whatsoever. Patient does not believe that the GI cocktail helped him. Pt has been drinking shabana sonia in the ED w/o difficulties. Low suspicion/risk for acute appendicitis, bowel obstruction, acute cholecystitis, perforated diverticulitis, incarcerated hernia, pancreatitis, perforated ulcer, peritonitis , sepsis, testicular torsion, or other systemic emergent condition at this time. Patient is aware that his condition can change from initial presentation and he needs to monitor symptoms closely and seek medical attention if any acute changes. I will send him home with a prescription for omeprazole, zofran , and Carafate to take as directed. Conservative measures otherwise for symptoms. Recheck with PCM in 3-5 days. Consider consult with a information coordinator. Return to the ED with any worsening/concerning symptoms otherwise as reviewed in discharge. Patient is in agreement. 08/25/17 17:27 Bc of patient's demeanor, I did have Jennifer, nurse, in the room with me during disharge as I have had issues in the past with this patient with treatment plans and becoming angry. The discharge was very cordial and we did not have any issues thereafter. All of the patients questions were answered and he understands his lab/imaging results as well as his treatment plan. Pt did request a work note. - Vital Signs Vital signs: Temp Pulse Resp BP Pulse Ox 97.7 F 84 20 143/88 H 99 08/25/17 13:45 08/25/17 13:45 08/25/17 13:45 08/25/17 13:45 08/25/17 13:45 - Laboratory Result Diagrams: 08/25/17 14:34 08/25/17 14:34 Laboratory results interpreted by me: 08/25/17 14:34 WBC 12.1 H RBC 5.63 H Discharge - Discharge Clinical Impression: Epigastric pain Condition: Stable Disposition: HOME, SELF-CARE Instructions: Abdominal Pain ([facility]), Antinausea Medication ([facility]), Low-Fat Diet ( [facility]) Additional Instructions: Maintain adequate fluid and food intake [place] diet ([employer] Bananas, rice, apples, toast, etc Zofran as needed tylenol if needed Take medications as directed Monitor for any worsening symptoms Make sure you are staying hydrated enough to urinate and have normal BM's Recheck with your PCM in 3-5 days Consider consult with Gastroenterology for ongoing/worsening symptoms Return to the ED with any worsening symptoms and/or development of fever, headache, chest pain, palpitations, syncope, shortness of breath, trouble breathing, abdominal pain, n/v/d, blood in stool/urine, weakness, or other worsening symptoms that are concerning to you. Prescriptions: Omeprazole 20 mg PO DAILY #30 tablet. Ondansetron [Zofran Odt 4 mg Tablet] 1 - 2 tab PO Q4H PRN #15 tab.rapdis PRN Reason: For Nausea/Vomiting Sucralfate [Carafate] 1 gm PO QID PRN #420 ml PRN Reason: Forms: Elevated Blood Pressure, Return to Work Referrals: MONIK DNIG MD [ACTIVE STAFF] - Follow up as needed
--- NOTE | 2017-08-25 16:18 | RADIOLOGY REPORT (SQ) ---
EXAM DESCRIPTION: CHEST PA/LAT COMPLETED DATE/TIME: 08/25/2017 4:09 pm REASON FOR STUDY: epigastric pain COMPARISON: 08/12/2017. EXAM PARAMETERS: NUMBER OF VIEWS: two views TECHNIQUE: Digital Frontal and Lateral radiographic views of the chest acquired. RADIATION DOSE: NA LIMITATIONS: none FINDINGS: LUNGS AND PLEURA: No opacities, masses or pneumothorax. No pleural effusion. MEDIASTINUM AND HILAR STRUCTURES: No masses or contour abnormalities. HEART AND VASCULAR STRUCTURES: Heart normal size. No evidence for failure. BONES: No acute findings. HARDWARE: None in the chest. OTHER: No other significant finding. IMPRESSION: NO SIGNIFICANT RADIOGRAPHIC FINDING IN THE CHEST. TECHNICAL DOCUMENTATION: JOB ID: [id number] [employer]- All Rights Reserved
[2017-08-25 18:33] VITALS: BP 121/71
== END 2017-08-25 18:33 | disposition home or self-care (01) ==
LOC: ER 13:40
DX: R10.13 Epigastric pain (principal); R11.0 Nausea; R19.7 Diarrhea, unspecified; D72.829 Elevated white blood cell count, unspecified; F17.200 Nicotine dependence, unspecified, uncomplicated; Z91.040 Latex allergy status; Z88.5 Allergy status to narcotic agent; Z88.8 Allergy status to other drugs, medicaments and biological substances
CPT/HCPCS: 99284; 36415; 83690; 85025; 80053; 71020; S0119; J3490 ×3

== ENCOUNTER 2017-09-06 11:35 | Emergency (ER) | payer MEDICAID ==
[2017-09-06] MEDS ORDERED: NORMAL SALINE 1000 ML 1,000 ML IV ONE (12:52)
[2017-09-06] MEDS ORDERED: ONDANSETRON HCL INJ/PF 4 MG/2 ML SDV IV ONE (12:52)
--- NOTE | 2017-09-06 12:54 | ER Document Report ---
ED Medical Screen (RME) - General Chief Complaint: Nausea/Vomiting Stated Complaint: VOMITING,NAUSEA,ABDOMINAL PAIN Time Seen by Provider: 09/06/17 12:51 Notes: Patient presents with severe headache as well as nausea and vomiting. This started yesterday. It is constant. He states that he also has some upper abdominal discomfort. TRAVEL OUTSIDE OF THE [place] IN LAST 30 DAYS: No - Related Data Allergies/Adverse Reactions: latex [Latex] Allergy (Unknown, Verified 09/06/17 11:39) morphine [Morphine] Allergy (Unknown, Verified 09/06/17 11:39) olanzapine [From Zyprexa] Allergy (Unknown, Verified 09/06/17 11:39) quetiapine fumarate [From Seroquel] Allergy (Unknown, Verified 09/06/17 11:39) Past Medical History - Past Medical History Cardiac Medical History: Reports: Hx Hypercholesterolemia, Hx Hypertension Neurological Medical History: Reports: Hx Migraine - Chronic JAMES Renal/ Medical History: Denies: Hx Peritoneal Dialysis GI Medical History: Reports: Hx Gastroesophageal Reflux Disease, Hx Irritable Bowel Psychiatric Medical History: Reports: Hx Attention Deficit Hyperactivity Disorder, Hx Bipolar Disorder, Hx Depression Past Surgical History: Reports: Hx Tonsillectomy - UPPP for sleep apnea, Hx Urinary Tract Surgery - Immunizations Hx Diphtheria, Pertussis, Tetanus Vaccination: Yes Physical Exam - Vital signs Vitals: Temp Pulse Resp BP Pulse Ox 98.7 F 122 H 18 137/115 H 96 09/06/17 11:43 09/06/17 11:43 09/06/17 11:43 09/06/17 11:43 09/06/17 11:43 Course - Vital Signs Vital signs: Temp Pulse Resp BP Pulse Ox 98.7 F 122 H 18 137/115 H 96 09/06/17 11:43 09/06/17 11:43 09/06/17 11:43 09/06/17 11:43 09/06/17 11:43
[2017-09-06 13:17] LABS: HEMATOCRIT 54.2 % (37.9-51.0); HEMOGLOBIN 18.6 g/dL (13.5-17.0); MEAN CORPUSCULAR HEMOGLOBIN 30.3 pg (27.0-33.4); MEAN CORPUSCULAR HGB CONC 34.3 g/dL (32.0-36.0); MEAN CORPUSCULAR VOLUME 88 fl (80-97); PLATELET COUNT 293 10^3/uL (150-450); RED BLOOD COUNT 6.15 10^6/uL (4.35-5.55); RED CELL DISTRIBUTION WIDTH 13.2 % (11.5-14.0); WHITE BLOOD COUNT 20.3 10^3/uL (4.0-10.5)
[2017-09-06 13:39] LABS: ALANINE AMINOTRANSFERASE 35 U/L (21-72); ALBUMIN 5.2 g/dL (3.5-5.0); ALKALINE PHOSPHATASE 111 U/L (38-126); ANION GAP 14 (5-19); ASPARTATE AMINO TRANSFERASE 23 U/L (17-59); BILIRUBIN,DIRECT 0.3 mg/dL (0.0-0.4); BILIRUBIN,TOTAL 0.8 mg/dL (0.2-1.3); BLOOD UREA NITROGEN 14 mg/dL (7-20); CALCIUM 10.4 mg/dL (8.4-10.2); CARBON DIOXIDE 27 mmol/L (22-30); CHLORIDE 101 mmol/L (98-107); GLUCOSE 91 mg/dL (75-110); POTASSIUM 4.9 mmol/L (3.6-5.0); SODIUM 141.5 mmol/L (137-145); TOTAL PROTEIN 8.2 g/dL (6.3-8.2)
[2017-09-06 13:47] LABS: ABSOLUTE MONOCYTES # (MANUAL) 0.4 10^3/uL (0.1-1.4); ABSOLUTE NEUTROPHILS# (MANUAL) 18.9 10^3/uL (1.7-8.2); BAND NEUTROPHILS % (MANUAL) 2 % (3-5); BASOPHILS % (MANUAL) 0 % (0-2); EOSINOPHILS % (MANUAL) 0 % (0-6); LYMPHOCYTES % (MANUAL) 5 % (13-45); MONOCYTES % (MANUAL) 2 % (3-13); PLATELET COMMENT ADEQUATE; RBC MORPHOLOGY COMMENT NORMO-CYTIC/CHROMIC; SEGMENTED NEUTROPHILS % (MAN) 91 % (42-78); TOTAL CELLS COUNTED 100; TOXIC GRANULATION SLIGHT
[2017-09-06 15:04] LABS: APPEARANCE,URINE CLEAR; BILIRUBIN,URINE NEGATIVE (NEGATIVE); COLOR,URINE YELLOW; GLUCOSE, URINE NEGATIVE (NEGATIVE); KETONES,URINE NEGATIVE (NEGATIVE); LEUKOCYTE ESTERASE,URINE NEGATIVE (NEGATIVE); NITRITE,URINE NEGATIVE (NEGATIVE); PROTEIN,URINE NEGATIVE (NEGATIVE); URINE SPECIFIC GRAVITY 1.018; UROBILINOGEN,URINE NEGATIVE mg/dL (<2.0)
--- NOTE | 2017-09-06 16:18 | RADIOLOGY REPORT (SQ) ---
EXAM DESCRIPTION: CT HEAD WITHOUT COMPLETED DATE/TIME: 09/06/2017 4:06 pm REASON FOR STUDY: headache COMPARISON: December 2012 TECHNIQUE: Axial images acquired through the brain without intravenous contrast. Images reviewed wi th bone, brain and subdural windows. Images stored on PACS. All CT scanners at this facility use dose modulation, iterative reconstruction, and/or weight based d osing when appropriate to reduce radiation dose to as low as reasonably achievable (ALARA). [facility]: Dose Right [facility]: CareDose [facility]: Dose Right [facility]: Teradose 4D [facility]: [employer] RADIATION DOSE: CT Rad equipment meets quality standard of care and radiation dose reduction techniq ues were employed. CTDIvol: 49.0 mGy. DLP: 881 mGy-cm. mGy. LIMITATIONS: None. FINDINGS: VENTRICLES: Normal size and contour. CEREBRUM: No masses. No hemorrhage. No midline shift. No evidence for acute infarction. Normal gra y/white matter differentiation. No areas of low density in the white matter. CEREBELLUM: No masses. No hemorrhage. No alteration of density. No evidence for acute infarction. EXTRAAXIAL SPACES: No fluid collections. No masses. ORBITS AND GLOBE: No intra- or extraconal masses. Normal contour of globe without masses. CALVARIUM: No fracture. PARANASAL SINUSES: No fluid or mucosal thickening. SOFT TISSUES: No mass or hematoma. OTHER: No other significant finding. IMPRESSION: NORMAL BRAIN CT WITHOUT CONTRAST. EVIDENCE OF ACUTE STROKE: NO. COMMENT: Quality ID # [id number]: Final reports with documentation of one or more dose reduction techniques (e.g., Automated exposure control, adjustment of the mA and/or kV according to patient size, use of iterative reconstruction technique) TECHNICAL DOCUMENTATION: JOB ID: [id number] [employer]- All Rights Reserved
--- NOTE | 2017-09-06 16:31 | RADIOLOGY REPORT (SQ) ---
EXAM DESCRIPTION: CT ABD/PELVIS WITH IV ORAL COMPLETED DATE/TIME: 09/06/2017 4:12 pm REASON FOR STUDY: abd pain, vomiting COMPARISON: None. TECHNIQUE: CT scan of the abdomen and pelvis performed using helical scanning technique with dynamic intravenous contrast injection and oral contrast. Images reviewed with lung, soft tissue, and bone w indows. Reconstructed coronal and sagittal MPR images reviewed. Delayed images for evaluation of the urinary system also acquired. All images stored on PACS. All CT scanners at this facility use dose modulation, iterative reconstruction, and/or weight based d osing when appropriate to reduce radiation dose to as low as reasonably achievable (ALARA). [facility]: Dose Right [facility]: CareDose [facility]: Dose Right [facility]: Teradose 4D [facility]: [facility] CONTRAST TYPE AND DOSE: contrast/concentration: Isovue 370.00 mg/ml; Total Contrast Delivered: 100.0 ml; Total Saline Delivered: 25.7 ml RENAL FUNCTION: None required. The patient is less than 50 years old. RADIATION DOSE: CT Rad equipment meets quality standard of care and radiation dose reduction techniq ues were employed. CTDIvol: 25.9 - 29.3 mGy. DLP: 3225 mGy-cm.. LIMITATIONS: None. FINDINGS: LOWER CHEST: No significant findings. No nodules or infiltrates. LIVER: Normal size. No masses. No dilated ducts. SPLEEN: Normal size. No focal lesions. PANCREAS: No masses. No significant calcifications. No adjacent inflammation or peripancreatic fluid collections. Pancreatic duct not dilated. GALLBLADDER: No identified stones by CT criteria. No inflammatory changes to suggest cholecystitis. ADRENAL GLANDS: No significant masses or asymmetry. RIGHT KIDNEY AND URETER: No solid masses. No significant calcifications. No hydronephrosis or hyd roureter. LEFT KIDNEY AND URETER: No solid masses. No significant calcifications. No hydronephrosis or hydr oureter. AORTA AND VESSELS: No aneurysm. No dissection. Renal arteries, SMA, celiac without stenosis. RETROPERITONEUM: No retroperitoneal adenopathy, hemorrhage or masses. BOWEL AND PERITONEAL CAVITY: No masses or inflammatory changes. No free fluid or peritoneal masses. An oral contrast filled stomach is identified. There is some apparent narrowing of the 2nd portion o f the duodenum between the gallbladder and pancreatic head and the possibility of a partial gastric o utlet obstruction cannot be excluded. No oral contrast is identified distal to the stomach. Clinica l correlation is recommended. APPENDIX: Normal. PELVIS: No mass. No free fluid. Normal bladder. ABDOMINAL WALL: No masses. No hernias. BONES: No significant or acute findings. OTHER: No other significant finding. IMPRESSION: And oral contrast filled stomach is identified. There is some apparent narrowing of the 2nd portion of the duodenum between the gallbladder and pancreatic head and the possibility of a par tial gastric outlet obstruction cannot be excluded. No oral contrast is identified distal to the sto mach. Clinical correlation is recommended. Other findings as noted above TECHNICAL DOCUMENTATION: JOB ID: [id number] Quality ID # [id number]: Final reports with documentation of one or more dose reduction techniques (e.g., Au tomated exposure control, adjustment of the mA and/or kV according to patient size, use of iterative reconstruction technique) 2010 [employer]- All Rights Reserved
--- NOTE | 2017-09-06 17:13 | ER Document Report ---
ED General - General Chief Complaint: Nausea/Vomiting Stated Complaint: VOMITING,NAUSEA,ABDOMINAL PAIN Time Seen by Provider: 09/06/17 12:51 Mode of Arrival: Medic Information source: Patient Notes: 37-year-old male presents with complaints of nausea vomiting after he was drinking last night. Patient denies any lower abdominal pain notes he is having epigastric and left upper quadrant abdominal pain. Patient denies any fevers or chills. Patient notes he has been here multiple times recently with nausea and vomiting. Patient denies any neck pain or neck stiffness but admits to headache after drinking. TRAVEL OUTSIDE OF THE [place] IN LAST 30 DAYS: No - HPI Onset: Just prior to arrival Onset/Duration: Sudden Quality of pain: Cramping Severity: Mild Pain Level: 1 Associated symptoms: Nausea, Vomiting Exacerbated by: Food, Other - Alcohol Relieved by: Denies Similar symptoms previously: Yes Recently seen / treated by doctor: Yes - Related Data Allergies/Adverse Reactions: latex [Latex] Allergy (Unknown, Verified 09/06/17 11:39) morphine [Morphine] Allergy (Unknown, Verified 09/06/17 11:39) olanzapine [From Zyprexa] Allergy (Unknown, Verified 09/06/17 11:39) quetiapine fumarate [From Seroquel] Allergy (Unknown, Verified 09/06/17 11:39) Past Medical History - Social History Smoking Status: Current Every Day Smoker Cigarette use (# per day): Yes Chew tobacco use (# tins/day): No Smoking Education Provided: No Frequency of alcohol use: None Drug Abuse: None Family History: Reviewed & Not Pertinent, Other Patient has suicidal ideation: No Patient has homicidal ideation: No - Past Medical History Cardiac Medical History: Reports: Hx Hypercholesterolemia, Hx Hypertension Neurological Medical History: Reports: Hx Migraine - Chronic JAMES Renal/ Medical History: Denies: Hx Peritoneal Dialysis GI Medical History: Reports: Hx Gastroesophageal Reflux Disease, Hx Irritable Bowel Psychiatric Medical History: Reports: Hx Attention Deficit Hyperactivity Disorder, Hx Bipolar Disorder, Hx Depression Past Surgical History: Reports: Hx Tonsillectomy - UPPP for sleep apnea, Hx Urinary Tract Surgery - Immunizations Hx Diphtheria, Pertussis, Tetanus Vaccination: Yes Review of Systems - Review of Systems Notes: REVIEW OF SYSTEMS: CONSTITUTIONAL : Denies fever, chills, or sweats. Denies recent illness. EENT: Denies eye, ear, throat, or mouth pain or symptoms. Denies nasal or sinus congestion or discharge. Denies throat, tongue, or mouth swelling or difficulty swallowing. CARDIOVASCULAR: Denies chest pain. Denies palpitations or racing or irregular heart beat. Denies ankle edema. RESPIRATORY: Denies cough, cold, or chest congestion. Denies shortness of breath, difficulty breathing, or wheezing. GASTROINTESTINAL: Admits to nausea vomiting GENITOURINARY: Denies difficulty urinating, painful urination, burning, frequency, blood in urine, or discharge. MUSCULOSKELETAL: Denies back or neck pain or stiffness. Denies joint pain or swelling. SKIN: Denies rash, lesions or sores. HEMATOLOGIC : Denies easy bruising or bleeding. LYMPHATIC: Denies swollen, enlarged glands. NEUROLOGICAL: Admits to headache PSYCHIATRIC: Denies anxiety or stress. Denies depression, suicidal ideation, or homicidal ideation. ALL OTHER SYSTEMS REVIEWED AND NEGATIVE. Dictation was performed using [employer] voice recognition software PHYSICAL EXAMINATION: GENERAL: Well-appearing, well-nourished and in no acute distress. Patient is happy laughing with his significant other does not appear nauseous at all HEAD: Atraumatic, normocephalic. EYES: Pupils equal round and reactive to light, extraocular movements intact, sclera anicteric, conjunctiva are normal. ENT: Nares patent, oropharynx clear without exudates. Moist mucous membranes. NECK: Normal range of motion, supple without lymphadenopathy LUNGS: Breath sounds clear to auscultation bilaterally and equal. No wheezes rales or rhonchi. HEART: Regular rate and rhythm without murmurs ABDOMEN: Soft, tender in epigastric region no rebound or guarding Musculoskeletal: Normal range of motion, no pitting or edema. No cyanosis. NEUROLOGICAL: Cranial nerves grossly intact. Normal speech, normal gait. Normal sensory, motor exams PSYCH: Normal mood, normal affect. SKIN: Warm, Dry, normal turgor, no rashes or lesions noted. Physical Exam - Vital signs Vitals: Temp Pulse Resp BP Pulse Ox 98.7 F 122 H 18 137/115 H 96 09/06/17 11:43 09/06/17 11:43 09/06/17 11:43 09/06/17 11:43 09/06/17 11:43 Course - Re-evaluation Re-evalutation: 09/06/17 20:09 Given elevated white count initial concern is for an infectious process, patient is in no distress throughout his whole visit, he is noted to be resting comfortably was sleeping on multiple re-evaluations. It appears patient's vomiting and epigastric pain caused white count elevation is a CT did not note any acute abnormality. CT of the head was also performed given his complaint of headache but given the lack of fever and altered mental status no neck stiffness I have no suspicion for meningitis, I did however explain my concerns initially to the patient and he denies any complaints as well or concerns CT was concerning for a abdominal outlet obstruction, given that the largest causes gastric reflux and the patient has gastric reflux I will treat him as if this is the cause of the patient's complaints. Patient will be treated for H. pylori, very strict return precautions have been provided and explained Patient states he understands and copies have been provided to him since his father is a retired physician assistant drafter After performing a Medical Screening Examination, I estimate there is LOW risk for ACUTE APPENDICITIS, BOWEL OBSTRUCTION, ACUTE CHOLECYSTITIS, PERFORATED DIVERTICULITIS, INCARCERATED HERNIA, PANCREATITIS, TESTICULAR TORSION or PERFORATED ULCER, thus I consider the discharge disposition reasonable. Also, there is no evidence or peritonitis, sepsis, or toxicity. I have reevaluated this patient multiple times and no significant life threatening changes are noted. The patient and I have discussed the diagnosis and risks, and we agree with discharging home with close follow-up with the understanding that symptoms and presentations can change. We also discussed returning to the Emergency Department immediately if new or worsening symptoms occur. We have discussed the symptoms which are most concerning (e.g., bloody stool, fever, changing or worsening pain, intractable vomiting - standard verbal up date) that necessitate immediate return. - Vital Signs Vital signs: Temp Pulse Resp BP Pulse Ox 99.1 F 104 H 18 145/91 H 96 09/06/17 17:32 09/06/17 17:32 09/06/17 17:32 09/06/17 17:32 09/06/17 17:32 - Laboratory Result Diagrams: 09/06/17 12:55 09/06/17 12:55 Laboratory results interpreted by me: 09/06/17 09/06/17 12:55 12:55 WBC 20.3 H RBC 6.15 H Hgb 18.6 H Hct 54.2 H Seg Neuts % (Manual) 91 H Band Neutrophils % 2 L Lymphocytes % (Manual) 5 L Monocytes % (Manual) 2 L Abs Neuts (Manual) 18.9 H Calcium 10.4 H Albumin 5.2 H - Diagnostic Test Radiology reviewed: Image reviewed, Reports reviewed Discharge - Discharge Clinical Impression: Epigastric abdominal pain, Abdominal outlet obstruction Nausea & vomiting Qualifiers: Vomiting type: unspecified Vomiting Intractability: non-intractable Qualified Code(s): R11.2 - Nausea with vomiting, unspecified Leukocytosis Qualifiers: Leukocytosis type: unspecified Qualified Code(s): D72.829 - Elevated white blood cell count, unspecified Condition: Stable Disposition: HOME, SELF-CARE Instructions: Nausea or Vomiting, Nonspecific ([facility]) Additional Instructions: You must return if there are any signs of fevers and concerns Prescriptions: Clarithromycin 500 mg PO Q8 14 Days tablet Metoclopramide HCl [Reglan 10 mg Tablet] 1 - 2 tab PO Q6 #25 tablet Omeprazole 40 mg PO DAILY #40 capsule.dr Forms: Return to Work Referrals: MONIK DING MD [ACTIVE STAFF] - Follow up tomorrow
[2017-09-06 17:33] VITALS: BP 145/91
== END 2017-09-06 17:33 | disposition home or self-care (01) ==
LOC: ER 11:35
DX: K31.1 Adult hypertrophic pyloric stenosis (principal); K21.9 Gastro-esophageal reflux disease without esophagitis; R11.2 Nausea with vomiting, unspecified; R10.13 Epigastric pain; R10.12 Left upper quadrant pain; I10 Essential (primary) hypertension; D72.829 Elevated white blood cell count, unspecified; F17.210 Nicotine dependence, cigarettes, uncomplicated; Z91.040 Latex allergy status; Z88.5 Allergy status to narcotic agent; Z88.8 Allergy status to other drugs, medicaments and biological substances; Z87.19 Personal history of other diseases of the digestive system
CPT/HCPCS: 99284; 96361; 96374; 36415; 83690; 85025; 80053; 81001; 70450; 74177; J2405; J7030

== ENCOUNTER 2017-09-08 21:23 | Emergency (ER) | payer MEDICAID ==
[2017-09-08 23:46] LABS: APPEARANCE,URINE SLIGHTLY-CLOUDY; BILIRUBIN,URINE NEGATIVE (NEGATIVE); COLOR,URINE YELLOW; GLUCOSE, URINE NEGATIVE (NEGATIVE); KETONES,URINE NEGATIVE (NEGATIVE); LEUKOCYTE ESTERASE,URINE TRACE (NEGATIVE); NITRITE,URINE NEGATIVE (NEGATIVE); PROTEIN,URINE NEGATIVE (NEGATIVE); URINE SPECIFIC GRAVITY 1.021
[2017-09-08 23:50] LABS: ALANINE AMINOTRANSFERASE 28 U/L (21-72); ALBUMIN 4.5 g/dL (3.5-5.0); ALKALINE PHOSPHATASE 81 U/L (38-126); ANION GAP 14 (5-19); ASPARTATE AMINO TRANSFERASE 21 U/L (17-59); BILIRUBIN,DIRECT 0.2 mg/dL (0.0-0.4); BILIRUBIN,TOTAL 0.6 mg/dL (0.2-1.3); BLOOD UREA NITROGEN 8 mg/dL (7-20); CARBON DIOXIDE 24 mmol/L (22-30); CHLORIDE 104 mmol/L (98-107); GLUCOSE 89 mg/dL (75-110); LIPASE 143.9 U/L (23-300); POTASSIUM 3.7 mmol/L (3.6-5.0); SODIUM 142.4 mmol/L (137-145); TOTAL PROTEIN 7.2 g/dL (6.3-8.2)
[2017-09-09 00:53] LABS: ABSOLUTE BASOPHILS # (AUTO) 0.1 10^3/uL (0.0-0.2); ABSOLUTE EOSINOPHILS # (AUTO) 0.1 10^3/uL (0.0-0.6); ABSOLUTE LYMPHOCYTES (AUTO) 4.6 10^3/uL (0.5-4.7); ABSOLUTE MONOCYTES (AUTO) 1.3 10^3/uL (0.1-1.4); ABSOLUTE NEUT (AUTO) 7.2 10^3/uL (1.7-8.2); BASOPHILS % (AUTO) 0.6 % (0-2); HEMATOCRIT 46.3 % (37.9-51.0); LYMPHOCYTES % (AUTO) 34.6 % (13-45); MEAN CORPUSCULAR HEMOGLOBIN 30.4 pg (27.0-33.4); MEAN CORPUSCULAR HGB CONC 35.2 g/dL (32.0-36.0); MEAN CORPUSCULAR VOLUME 87 fl (80-97); MONOCYTES % (AUTO) 9.5 % (3-13); PLATELET COUNT 248 10^3/uL (150-450); RED BLOOD COUNT 5.35 10^6/uL (4.35-5.55); RED CELL DISTRIBUTION WIDTH 13.1 % (11.5-14.0); SEGMENTED NEUTROPHILS % (AUTO) 54.3 % (42-78); TOTAL CELLS COUNTED % (AUTO) 100 %; WHITE BLOOD COUNT 13.3 10^3/uL (4.0-10.5)
[2017-09-09 00:54] LABS: HEMOGLOBIN 16.3 g/dL (13.5-17.0)
[2017-09-09] MEDS ORDERED: PANTOPRAZOLE SODIUM 40 MG VIAL IV ONE (01:11)
[2017-09-09] MEDS ORDERED: FAMOTIDINE INJ/PF 20 MG/2 ML SDV IV ONE (01:11)
[2017-09-09] MEDS ORDERED: SUCRALFATE 1 GM TABLET PO ONE (01:11)
[2017-09-09] MEDS ORDERED: NORMAL SALINE 1000 ML 1,000 ML IV ONE (01:11)
--- NOTE | 2017-09-09 01:11 | ER Document Report ---
ED GI/ - General Mode of Arrival: Ambulatory Information source: Patient TRAVEL OUTSIDE OF THE [place] IN LAST 30 DAYS: No - HPI Patient complains to provider of: Abdominal pain Onset: Other - last 24 hours Location: Other - see notes above Associated symptoms: Other - see notes above <MARY KOLHER - Last Filed: 09/09/17 01:53> <ARTIYASMIN ANN - Last Filed: 09/09/17 03:52> - General Chief Complaint: Abdominal Pain Stated Complaint: ABDOMINAL PAIN Time Seen by Provider: 09/09/17 01:10 Notes: 37 year old male with history of IBS and a partial small bowel obstruction presents to the ED complaining of increasing abdominal pain over the last 24 hours which starts on the left but radiates to the right. Patient reports that he was here 3 days ago when the partial block was diagnosed. Patient was discharged to follow up with his primary care to get in with GI. Patient has a GI appointment tomorrow morning at [address] Bonilla. Patient told to return to the ED for worsening pain. Patient has been drinking and eating small amounts over the past 24 hours and complains of having vomiting episodes for 4 hours yesterday. Patient has had 1 bowel movement in the last 24 hours and reports small, soft, odd colored stool. Patient has had this abdominal pain for 3 months. (MARY KOHLER) - Related Data Allergies/Adverse Reactions: latex [Latex] Allergy (Unknown, Verified 09/06/17 11:39) morphine [Morphine] Allergy (Unknown, Verified 09/06/17 11:39) olanzapine [From Zyprexa] Allergy (Unknown, Verified 09/06/17 11:39) quetiapine fumarate [From Seroquel] Allergy (Unknown, Verified 09/06/17 11:39) Past Medical History - General Information source: Patient - Social History Smoking Status: Current Every Day Smoker Frequency of alcohol use: Occasional Drug Abuse: None Family History: Reviewed & Not Pertinent, Other Patient has suicidal ideation: No Patient has homicidal ideation: No - Past Medical History Cardiac Medical History: Reports: Hx Hypercholesterolemia, Hx Hypertension Neurological Medical History: Reports: Hx Migraine - Chronic JAMES Renal/ Medical History: Denies: Hx Peritoneal Dialysis GI Medical History: Reports: Hx Gastroesophageal Reflux Disease, Hx Irritable Bowel Psychiatric Medical History: Reports: Hx Attention Deficit Hyperactivity Disorder, Hx Bipolar Disorder, Hx Depression Past Surgical History: Reports: Hx Tonsillectomy - UPPP for sleep apnea, Hx Urinary Tract Surgery - Immunizations Hx Diphtheria, Pertussis, Tetanus Vaccination: Yes <MARY KOHLER - Last Filed: 09/09/17 01:53> Review of Systems - Review of Systems Constitutional: No symptoms reported EENT: No symptoms reported Cardiovascular: No symptoms reported Respiratory: No symptoms reported Gastrointestinal: See HPI, Abdominal pain, Nausea, Vomiting, Last bowel movement - within past 24 hours Genitourinary: No symptoms reported Male Genitourinary: No symptoms reported Musculoskeletal: No symptoms reported Skin: No symptoms reported Hematologic/Lymphatic: No symptoms reported Neurological/Psychological: No symptoms reported -: Yes All other systems reviewed and negative <MARY KOHLER - Last Filed: 09/09/17 01:53> Physical Exam - General General appearance: Alert, Other - appears uncomfortable In distress: None - HEENT Head: Normocephalic, Atraumatic Eyes: Normal Extraocular movements intact: Yes Pupils: PERRL - Respiratory Respiratory status: No respiratory distress Breath sounds: Normal - Cardiovascular Rhythm: Regular Heart sounds: Normal auscultation - Abdominal Inspection: Morbidly Obese. No: Normal Distension: No distension Bowel sounds: Normal Tenderness: Tender - Epigastric TTP. No: Guarding, Rebound - Back Back: Normal, Nontender - Extremities General upper extremity: Normal inspection, Normal ROM General lower extremity: Normal inspection, Normal ROM - Neurological Neuro grossly intact: Yes Cognition: Normal Orientation: AAOx4 [place] Coma Scale Eye Opening: Spontaneous [place] Coma Scale Verbal: Oriented [place] Coma Scale Motor: Obeys Commands Rony Coma Scale Total: 15 Speech: Normal - Psychological Associated symptoms: Normal affect, Normal mood - Skin Skin Temperature: Warm Skin Moisture: Dry Skin Color: Normal <MARY KOHLER - Last Filed: 09/09/17 01:53> - Vital signs Vitals: Temp Pulse Resp BP Pulse Ox 99.0 F 92 22 H 131/92 H 98 09/08/17 21:23 09/08/17 21:23 09/08/17 21:23 09/08/17 21:23 09/08/17 21:23 Course - Laboratory Result Diagrams: 09/09/17 00:37 09/08/17 23:20 <MARY KOHLER - Last Filed: 09/09/17 01:53> - Laboratory Result Diagrams: 09/09/17 00:37 09/08/17 23:20 - Diagnostic Test Radiology reviewed: Image reviewed, Reports reviewed <YASMIN CHI - Last Filed: 09/09/17 03:52> - Re-evaluation Re-evalutation: 09/09/17 03:48 Patient is a 37-year-old male who comes in complaining of epigastric pain. Patient is showing me his CT scan that he has a copy of the report and telling me that it shows a partial small bowel obstruction. Patient has been keeping p.o. down and is having bowel movements today. He has had no further vomiting. Discussed with patient giving medications. Discussed doing CT versus abdominal series. Abdominal series is not showing any evidence for obstructive pattern. Patient does have a lot of stool in his colon on x-ray. Patient has been frustrated and defensive since he has been my patients. States that this hospital his told him multiple times that there is nothing wrong and he knows that there is something wrong. Patient has an appointment with gastroenterology later today. Patient was started on medications 2 days ago for suspected gastritis versus peptic ulcer disease. Patient is in no distress in the emergency department and has been consistently rude and verbally abusive to myself and staff. Patient is currently demanding to leave with a copy of his blood work and imaging reports which I have given him a copy of. Of note, his blood work appears improved from when he was seen on 09/06. Patient informs me that he will be taking this up with administration although he does not want anything else for pain and would like to just leave. Nursing staff is been informed that if the patient continues to be aggressive and/or abusive to nursing staff or myself, he will be escorted by security out of the building. Stable for discharge. (YASMIN CHI) - Vital Signs Vital signs: Temp Pulse Resp BP Pulse Ox 99.0 F 92 22 H 131/92 H 98 09/08/17 21:23 09/08/17 21:23 09/08/17 21:23 09/08/17 21:23 09/08/17 21:23 - Laboratory Laboratory results interpreted by me: 09/08/17 09/09/17 23:20 00:37 WBC 13.3 H Urine Urobilinogen 4.0 H Ur Leukocyte Esterase TRACE H Discharge <MARY KOHLER - Last Filed: 09/09/17 01:53> <YASMIN CHI - Last Filed: 09/09/17 03:52> - Discharge Clinical Impression: Epigastric abdominal pain Condition: Stable Disposition: HOME, SELF-CARE Instructions: Evaluation of Upper Abdominal Pain ([facility]) Additional Instructions: Please follow-up with gastroenterology today as scheduled. Please return if you have any worsening or concerning symptoms. Please avoid alcohol. Scribe Attestation: 09/09/17 03:52 I personally performed the services described in the documentation, reviewed and edited the documentation which was dictated to the scribe in my presence, and it accurately records my words and actions. (YASMIN CHI) Scribe Documentation - Scribe Written by Jackie:: Jackie Caicedo, 09/09/2017 [id number] acting as scribe for :: Arti <MARY KOHLER - Last Filed: 09/09/17 01:53>
--- NOTE | 2017-09-09 02:20 | RADIOLOGY REPORT (SQ) ---
EXAM DESCRIPTION: ACUTE ABDOMEN SERIES CLINICAL HISTORY: evaluate for SBO COMPARISON: 08/25/2017 FINDINGS: Single view of the chest with upright and spine views of the abdomen. Cardiomediastinal silhouette has normal size and contour. No consolidation, pneumothorax, or pleural effusion. Upright and supine views of the abdomen demonstrate scattered air-filled loops of large and small bowel throughout the abdomen without evidence of bowel dilatation. No free intraperitoneal air. Moderate amount stool. No acute osseous abnormalities. IMPRESSION: 1. No acute pulmonary process. 2. Nonobstructive bowel gas pattern.
[2017-09-09 03:56] VITALS: BP 133/71
== END 2017-09-09 03:55 | disposition home or self-care (01) ==
LOC: ER 21:23
DX: R10.13 Epigastric pain (principal); R11.2 Nausea with vomiting, unspecified; R19.5 Other fecal abnormalities; I10 Essential (primary) hypertension; F17.200 Nicotine dependence, unspecified, uncomplicated; Z87.19 Personal history of other diseases of the digestive system; Z91.040 Latex allergy status; Z88.5 Allergy status to narcotic agent
CPT/HCPCS: 99284; 96361; 96374; 96375; 36415; 83690; 85025; 80053; 81001; 74022; S0164; J3490; J7030; S0028

== ENCOUNTER 2017-09-13 11:01 | Day surgery (SDC) | payer MEDICAID ==
[~2017-09-13 11:01] MED LIST: FENTANYL CITRATE INJ/PF 100 MCG/2 ML AMPUL ONE; MIDAZOLAM 2 MG/2 ML INJ ONE; PROPOFOL INJ 200 MG/20 ML VIAL IV ONE
[2017-09-13] MEDS ORDERED: PROPOFOL INJ 200 MG/20 ML VIAL IV ONE (12:19)
[2017-09-13] MEDS ORDERED: SIMETHICONE 80 MG TAB.CHEW ONE (12:41)
[2017-09-13] MEDS ORDERED: SIMETHICONE 80 MG TAB.CHEW PO ONE (12:42)
[2017-09-13 13:14] VITALS: BP 116/85
--- NOTE | 2017-09-13 13:43 | Operative Report ---
Operative Report DATE OF SURGERY: 09/13/17 Operative Report: The risks benefits and alternatives of the procedure explained to the patient in detail and informed consent is obtained.A GIF Olympus video scope was inserted into the patient's mouth and hypopharynx, the esophagus is identified intubated and insufflated, the scope was then advanced through the esophagus stomach and duodenum, the scope was advanced to approximately 180 cm. Retroflexion maneuver is done the esophagus stomach and first and second portions of the duodenum examined PREOPERATIVE DIAGNOSIS: Possible gastric outlet obstruction possible narrowing the second portion of the duodenum. Patient has a history of biliary dyskinesia in the past. Nausea vomiting POSTOPERATIVE DIAGNOSIS: Patent gastric outlet. No stricture noted in the second portion of the duodenum. I suspect a calculus cholecystitis will probably need surgical evaluation. Gastritis status post biopsy rule out Helicobacter pylori OPERATION: [facility] biopsy SURGEON: MONIK DING ANESTHESIA: LMAC TISSUE REMOVED OR ALTERED: As noted above. COMPLICATIONS: None. ESTIMATED BLOOD LOSS: None. INTRAOPERATIVE FINDINGS: As noted above. PROCEDURE: Patient tolerated procedure well. No immediate postprocedure complications are noted. Patient discharged in good condition. Discharge date 09/13/2017. Discharge diet: Regular. Discharge activity: Regular. 2-3 week follow-up to discuss findings. We will place surgical referral for patient. We will await pathology. Patient is instructed to call the office or proceed to the emergency room should there be any further problems or questions.
== END 2017-09-13 13:10 | disposition home or self-care (01) ==
LOC: END 11:01
PROVIDERS: ATTEND Internal Medicine Gastroenterology
PROC: 0DB68ZX Excision of Stomach, Via Natural or Artificial Opening Endoscopic, Diagnostic (ICD-10-PCS; principal; 2017-09-13 14:30)
DX: K29.50 Unspecified chronic gastritis without bleeding (principal); I10 Essential (primary) hypertension; F17.210 Nicotine dependence, cigarettes, uncomplicated; Z88.8 Allergy status to other drugs, medicaments and biological substances; Z88.5 Allergy status to narcotic agent
CPT/HCPCS: 44361; 88342 ×2; 88305 ×2; J2704; J2250; J3010

== ENCOUNTER 2018-02-02 11:23 | Emergency (ER) | payer SELFPAY ==
[2018-02-02] MEDS ORDERED: RINGERS SOLUTION,LACTATED 1,000 ML IV PRN (12:57)
[2018-02-02] MEDS ORDERED: ONDANSETRON HCL INJ/PF 4 MG/2 ML SDV IV ONE (13:01)
--- NOTE | 2018-02-02 13:01 | ER Document Report ---
ED Medical Screen (RME) - General Chief Complaint: Nausea Stated Complaint: NAUSEA Time Seen by Provider: 02/02/18 12:53 Mode of Arrival: Ambulatory Information source: Patient Notes: This is a 37-year-old man who states he ate tuna that was old on Wednesday and has had nausea, vomiting and diarrhea since. He does state he has had some upper abdominal cramping. TRAVEL OUTSIDE OF THE [place] IN LAST 30 DAYS: No - Related Data Allergies/Adverse Reactions: latex [Latex] Allergy (Mild, Verified 02/02/18 11:25) Generalized rash morphine [Morphine] Allergy (Unknown, Verified 02/02/18 11:25) Anaphylaxis olanzapine [From Zyprexa] Allergy (Unknown, Verified 02/02/18 11:25) Psychosis quetiapine fumarate [From Seroquel] Allergy (Unknown, Verified 02/02/18 11:25) Psychosis Past Medical History - Social History Chew tobacco use (# tins/day): No Frequency of alcohol use: Occasional Drug Abuse: None - Past Medical History Cardiac Medical History: Reports: Hx Congestive Heart Failure - anxiety, Hx Hypercholesterolemia, Hx Hypertension - NO MEDICATION Denies: Hx Coronary Artery Disease, Hx Heart Attack Pulmonary Medical History: Denies: Hx Asthma, Hx Bronchitis, Hx COPD, Hx Pneumonia Neurological Medical History: Reports: Hx Migraine. Denies: Hx Cerebrovascular Accident, Hx Seizures Renal/ Medical History: Denies: Hx Peritoneal Dialysis GI Medical History: Reports: Hx Gastroesophageal Reflux Disease, Hx Irritable Bowel Musculoskeltal Medical History: Denies Hx Arthritis Psychiatric Medical History: Reports: Hx Attention Deficit Hyperactivity Disorder, Hx Bipolar Disorder, Hx Depression Past Surgical History: Reports: Hx Tonsillectomy - UPPP for sleep apnea, Hx Urinary Tract Surgery - Immunizations Hx Diphtheria, Pertussis, Tetanus Vaccination: Yes Physical Exam - Vital signs Vitals: Temp Pulse Resp BP Pulse Ox 98.8 F 72 14 142/94 H 98 02/02/18 11:40 02/02/18 11:40 02/02/18 11:40 02/02/18 11:40 02/02/18 11:40 Course - Vital Signs Vital signs: Temp Pulse Resp BP Pulse Ox 98.8 F 72 14 142/94 H 98 02/02/18 11:40 02/02/18 11:40 02/02/18 11:40 02/02/18 11:40 02/02/18 11:40
[2018-02-02 14:03] LABS: ABSOLUTE BASOPHILS # (AUTO) 0.1 10^3/uL (0.0-0.2); ABSOLUTE LYMPHOCYTES (AUTO) 3.5 10^3/uL (0.5-4.7); ABSOLUTE MONOCYTES (AUTO) 0.7 10^3/uL (0.1-1.4); ABSOLUTE NEUT (AUTO) 6.2 10^3/uL (1.7-8.2); BASOPHILS % (AUTO) 0.6 % (0-2); EOSINOPHILS % (AUTO) 0.3 % (0-6); LYMPHOCYTES % (AUTO) 33.4 % (13-45); MEAN CORPUSCULAR HEMOGLOBIN 30.2 pg (27.0-33.4); MEAN CORPUSCULAR HGB CONC 34.7 g/dL (32.0-36.0); MEAN CORPUSCULAR VOLUME 87 fl (80-97); MONOCYTES % (AUTO) 6.8 % (3-13); PLATELET COUNT 253 10^3/uL (150-450); RED BLOOD COUNT 5.63 10^6/uL (4.35-5.55); RED CELL DISTRIBUTION WIDTH 13.3 % (11.5-14.0); SEGMENTED NEUTROPHILS % (AUTO) 58.9 % (42-78); TOTAL CELLS COUNTED % (AUTO) 100 %; WHITE BLOOD COUNT 10.5 10^3/uL (4.0-10.5)
[2018-02-02 14:15] LABS: ALANINE AMINOTRANSFERASE 31 U/L (21-72); ALBUMIN 4.7 g/dL (3.5-5.0); ALKALINE PHOSPHATASE 92 U/L (38-126); ANION GAP 12 (5-19); ASPARTATE AMINO TRANSFERASE 24 U/L (17-59); BILIRUBIN,DIRECT 0.3 mg/dL (0.0-0.4); BILIRUBIN,TOTAL 0.4 mg/dL (0.2-1.3); BLOOD UREA NITROGEN 12 mg/dL (7-20); CALCIUM 10.3 mg/dL (8.4-10.2); CARBON DIOXIDE 24 mmol/L (22-30); CHLORIDE 107 mmol/L (98-107); GLUCOSE 80 mg/dL (75-110); LIPASE 137.3 U/L (23-300); POTASSIUM 4.4 mmol/L (3.6-5.0); SODIUM 142.9 mmol/L (137-145); TOTAL PROTEIN 7.8 g/dL (6.3-8.2)
--- NOTE | 2018-02-02 14:20 | ER Document Report ---
ED GI/ - General Chief Complaint: Nausea Stated Complaint: NAUSEA Time Seen by Provider: 02/02/18 12:53 Mode of Arrival: Ambulatory Notes: Patient is complaining of abdominal cramping and nausea and diarrhea. He thinks is due to some bad tuna fish that he ate Wednesday. He thought that food had been in the refrigerator for 2 or 3 days and has subsequently found out it was and therefore even longer. He does recall that the tunafish was tasting bad about fdc through it. Ever since then, he has been nauseated but has not vomited. He has had generalized abdominal cramping. Has not had any fever. Patient had his gallbladder removed in September. No other abdominal surgeries. Patient has sleep apnea and has had surgery for this condition. Migraine headaches. Anxiety, bipolar, PTSD, ADHD. Patient has been to this emergency department for medical conditions 10 times since the beginning of 2016. TRAVEL OUTSIDE OF THE [place] IN LAST 30 DAYS: No - Related Data Allergies/Adverse Reactions: latex [Latex] Allergy (Mild, Verified 02/02/18 11:25) Generalized rash morphine [Morphine] Allergy (Unknown, Verified 02/02/18 11:25) Anaphylaxis olanzapine [From Zyprexa] Allergy (Unknown, Verified 02/02/18 11:25) Psychosis quetiapine fumarate [From Seroquel] Allergy (Unknown, Verified 02/02/18 11:25) Psychosis Past Medical History - General Information source: Patient - Social History Smoking Status: Current Every Day Smoker Chew tobacco use (# tins/day): No Frequency of alcohol use: Occasional Drug Abuse: None Family History: Reviewed & Not Pertinent, Other Patient has suicidal ideation: No Patient has homicidal ideation: No - Past Medical History Cardiac Medical History: Reports: Hx Congestive Heart Failure - anxiety, Hx Hypercholesterolemia, Hx Hypertension - NO MEDICATION Neurological Medical History: Reports: Hx Migraine GI Medical History: Reports: Hx Gastroesophageal Reflux Disease, Hx Irritable Bowel Psychiatric Medical History: Reports: Hx Attention Deficit Hyperactivity Disorder, Hx Bipolar Disorder, Hx Depression, Hx Post Traumatic Stress Disorder Past Surgical History: Reports: Hx Tonsillectomy - UPPP for sleep apnea, Hx Urinary Tract Surgery - Immunizations Hx Diphtheria, Pertussis, Tetanus Vaccination: Yes Review of Systems - Review of Systems Notes: REVIEW OF SYSTEMS: CONSTITUTIONAL : Denies fever. EENT: Denies eye, ear, nose or mouth or throat pain or other symptoms. CARDIOVASCULAR: Denies chest pain. RESPIRATORY: Denies cough, chest congestion, or shortness of breath. GASTROINTESTINAL: See HPI. GENITOURINARY: Denies difficulty or painful urinating, urinary frequency, blood in urine. MUSCULOSKELETAL: Denies back or neck pain. Denies joint pain or swelling. SKIN: Denies rash or skin lesions. NEUROLOGICAL: Denies LOC or altered mental status. Denies sensory loss or motor deficits. ALL OTHER SYSTEMS REVIEWED AND NEGATIVE. Physical Exam - Vital signs Vitals: Temp Pulse Resp BP Pulse Ox 98.8 F 72 14 142/94 H 98 02/02/18 11:40 02/02/18 11:40 02/02/18 11:40 02/02/18 11:40 02/02/18 11:40 Interpretation: Normal - Notes Notes: PHYSICAL EXAMINATION: GENERAL: Well-appearing, in no acute distress. HEAD: Atraumatic, normocephalic. EYES: Pupils equal round and reactive to light, extraocular movements intact. ENT: oropharynx clear without exudates. Moist mucous membranes. NECK: Normal range of motion, supple. LUNGS: Breath sounds clear and equal bilaterally. HEART: Regular rate and rhythm without murmurs. ABDOMEN: Soft, minimally tender diffusely. No guarding or rebound. No masses. BACK: No tenderness throughout entire back. EXTREMITIES: Normal range of motion without pain. NEUROLOGICAL: Normal speech, normal gait. Normal sensory, motor, and reflex exams. Awake, alert, and oriented x3. Cranial nerves normal. PSYCH: Normal mood, normal affect. SKIN: Warm, dry, no rashes. Course - Re-evaluation Re-evalutation: 02/02/18 14:21 Patient was given a liter of Ringer's lactate. 02/02/18 14:22 Labs are all completely normal. White count is 10,000 with a normal differential. No shift, no bands. - Vital Signs Vital signs: Temp Pulse Resp BP Pulse Ox 98.8 F 72 14 142/94 H 98 02/02/18 11:40 02/02/18 11:40 02/02/18 11:40 02/02/18 11:40 02/02/18 11:40 - Laboratory Result Diagrams: 02/02/18 13:15 02/02/18 13:15 Laboratory results interpreted by me: 02/02/18 02/02/18 13:15 13:15 RBC 5.63 H Calcium 10.3 H Discharge - Discharge Clinical Impression: Abdominal cramping, Diarrhea, Nausea, Food poisoning Condition: Stable Disposition: HOME, SELF-CARE Additional Instructions: Food Poisoning Your symptoms appear to be due to food poisoning. Food poisoning is due to bacterial poisons in food. It occurs when bacteria (usually staph) get into food, then have time to grow before the food is eaten. Symptoms usually begin about an hour after the contaminated food is eaten -- typically abdominal cramps , vomiting, and diarrhea. Refrigeration of food usually prevents food poisoning. Food poisoning usually resolves within a few hours without treatment. The bowel should be rested: nothing by mouth for about four hours, then frequent sips of clear liquids for another six to eight hours. Further treatment may be required for severe or prolonged vomiting, dehydration, or severe abdominal cramping. Call the doctor or come back if symptoms do not resolve within 24 hours, or if you worsen in any way -- for example you develop worsening pain, high fever, or blood in the stools. ABDOMINAL PAIN: There are many causes of abdominal pain. Pain can mean a serious problem requiring surgery (such as appendicitis). It can also be an innocent problem that goes away on its own (such as a viral infection). Often, time must pass to determine the cause of pain. The physician does not feel that hospitalization is necessary, at present. Things may change within the next 24 hours. Call the doctor or come back for re- examination if any problems occur, such as: (1) Pain that becomes more severe, steady, or becomes concentrated in one specific area. Also, pain that is more severe with movement or coughing. (2) Vomiting that persists or becomes more frequent. (3) Blood in the vomitus, urine, or bowel movements. Blood in the stool may have a tarry or black appearance. (4) Shaking chills or fever greater than 100 degrees F. (5) The abdomen becomes more distended or swollen. (6) Bowel movements cease. (7) Failure to improve as expected. Diarrhea Diarrhea means frequent, watery stools. There are many causes. Any problem that keeps the intestinal tract from absorbing water from the stool can lead to diarrhea. A sudden new diarrhea problem is usually caused by a virus, food sensitivity, toxic bacteria, or drugs. In this case, we expect the problem to go away soon. Testing is done only if you seem seriously ill from the diarrhea. If you have chronic diarrhea, or diarrhea that keeps coming back, we need to find out why. Chronic diarrhea can be due to inflammation of the bowels such as Crohn's disease or ulcerative colitis, food sensitivity such as intolerance to lactose or wheat protein, irritable bowel syndrome, and other problems. If your diarrhea is a significant problem but it's not clear why you have it, we' ll refer you to a specialist for further testing. During an episode of diarrhea, drink small amounts (two to six ounces) of clear liquids (soft drinks, sport drinks, herb teas, broth, etc). Take fluids frequently to prevent dehydration. It's usually not a problem to take mild anti- diarrhea medication such as Kaopectate or Pepto-Bismol. As the diarrhea eases, advance to small amounts of bland food (mashed potato, toast) for 24 hours. Call the physician if blood appears in your vomit or stool, if vomiting lasts longer than 24 hours, if the abdominal pain worsens or becomes localized to one area, if you develop high fever, or if you become lightheaded and weak. NORMAL EXAM AND WORKUP: At this time, your examination and workup show no significant abnormality. No significant abnormal physical findings are noted. All laboratory, EKG, and imaging (x-ray, CT scans, ultrasound) studies that were ordered show no significant abnormality. Although your examination and all studies that were ordered showed no significant abnormal finding, there are no examinations and no studies that are 100% accurate. There is always the possibility that some abnormality could exist and not be detected with physical examination or within the limits and capabilities of laboratory and other studies. You should return or follow up as you were instructed on your visit today for further evaluation if your symptoms do not resolve. ANTINAUSEA MEDICATION: You have been given a medication to suppress nausea and vomiting. This type of medication can be given as a shot, pill, or suppository. It will usually last for many hours. Pills and shots usually last six to eight hours, suppositories last about 12 hours. For the typical illness, only one or two doses of the medication may be necessary. Mild lightheadedness may occur. This type of medicine can cause drowsiness. Do not drive or operate dangerous machinery while under its influence. Do not mix with alcohol. See your doctor at once if you have muscle spasms or tightness, or uncontrollable motions (particularly of the neck, mouth, or jaw). Persistent vomiting or severe lightheadedness should also be evaluated by the physician. ANTISPASMODICS: You have been given a prescription for an antispasmodic medicine. This type of drug is used to decrease cramping and pain in the intestines. It is also used to decrease secretion of internal fluids (such as stomach acid in ulcer disease or pancreatic juice in pancreas disease). This medicine may cause drowsiness, especially with the first dose. Do not operate machinery or drive until all side effects have resolved. Do not combine with alcohol. Other common side effects include dry mouth and eyes. In older persons, antispasmodics can occasionally cause urinary retention, constipation, or trouble focusing the eyes. Glaucoma may be worsened by this medicine. FOLLOW-UP CARE: If you have been referred to a physician for follow-up care, call the physician s office for an appointment as you were instructed or within the next two days. If you experience worsening or a significant change in your symptoms, notify the physician immediately or return to the Emergency Department at any time for re-evaluation. Prescriptions: Dicyclomine HCl [Bentyl 20 mg Tablet] 20 - 40 mg PO QIDP PRN #30 tablet PRN Reason: Promethazine HCl [Phenergan 25 mg Tablet] 1 - 2 tab PO Q6H PRN #15 tablet PRN Reason: Forms: Return to Work Referrals: SIMONE COREY MD [Primary Care Provider] - Follow up as needed
[2018-02-02] MEDS ORDERED: DICYCLOMINE HCL 20 MG TABLET PO ONE (14:22)
[2018-02-02 14:50] VITALS: BP 140/82
== END 2018-02-02 14:49 | disposition home or self-care (01) ==
LOC: ER 11:23
DX: T61.771A Other fish poisoning, accidental (unintentional), initial encounter (principal); R19.7 Diarrhea, unspecified; R11.0 Nausea; R10.84 Generalized abdominal pain; X58.XXXA Exposure to other specified factors, initial encounter; Y92.009 Unspecified place in unspecified non-institutional (private) residence as the place of occurrence of the external cause; F17.200 Nicotine dependence, unspecified, uncomplicated; Z91.040 Latex allergy status; Z88.6 Allergy status to analgesic agent; I50.9 Heart failure, unspecified; E78.00 Pure hypercholesterolemia, unspecified; I10 Essential (primary) hypertension
CPT/HCPCS: 99283; 96374; 36415; 83690; 85025; 80053; J3490; J2405

== ENCOUNTER 2018-02-21 10:39 | Emergency (ER) | payer SELFPAY ==
[2018-02-21] MEDS ORDERED: IBUPROFEN 800 MG TABLET PO ONE (11:00)
--- NOTE | 2018-02-21 12:34 | RADIOLOGY REPORT (SQ) ---
EXAM DESCRIPTION: ANKLE RIGHT COMPLETE COMPLETED DATE/TIME: 02/21/2018 11:36 am REASON FOR STUDY: pain swelling COMPARISON: None. NUMBER OF VIEWS: Three views. TECHNIQUE: AP, lateral, and oblique radiographic images acquired of the right ankle. LIMITATIONS: None. FINDINGS: MINERALIZATION: Normal. BONES: No acute fracture or dislocation. No worrisome bone lesions. JOINTS: No effusions. SOFT TISSUES: No soft tissue swelling. No foreign body. OTHER: No other significant finding. IMPRESSION: NEGATIVE STUDY OF THE RIGHT ANKLE. NO RADIOGRAPHIC EVIDENCE OF ACUTE INJURY. TECHNICAL DOCUMENTATION: JOB ID: [id number] [employer]- All Rights Reserved Reading location - IP/workstation name: [email or web address]
--- NOTE | 2018-02-21 12:39 | RADIOLOGY REPORT (SQ) ---
EXAM DESCRIPTION: FOOT RIGHT COMPLETE COMPLETED DATE/TIME: 02/21/2018 11:36 am REASON FOR STUDY: pain swelling COMPARISON: None. NUMBER OF VIEWS: Three views. TECHNIQUE: AP, lateral and oblique radiographic images acquired of the right foot. LIMITATIONS: None. FINDINGS: MINERALIZATION: Normal. BONES: No acute fracture or dislocation. No worrisome bone lesions. JOINTS: No effusions. SOFT TISSUES: No soft tissue swelling. No foreign body. OTHER: No other significant finding. IMPRESSION: NEGATIVE STUDY OF THE RIGHT FOOT. NO RADIOGRAPHIC EVIDENCE OF ACUTE INJURY. TECHNICAL DOCUMENTATION: JOB ID: [id number] [employer]- All Rights Reserved Reading location - IP/workstation name: [email or web address]
--- NOTE | 2018-02-21 12:58 | ER Document Report ---
ED Extremity Problem, Lower - General Chief Complaint: Ankle Injury Stated Complaint: ANKLE PAIN Time Seen by Provider: 02/21/18 10:52 Mode of Arrival: Wheelchair Information source: Patient Notes: 37-year-old male presented ED for complaint of right pain to his foot and ankle. He states he had to move a couch inside in the rain. States to 3 hours later he always suddenly had severe pain in his right ankle and foot. The pain is not improved and he has developed swelling in the ankle. Patient is alert and oriented respirations regular and unlabored able to walk with a limp. TRAVEL OUTSIDE OF THE [place] IN LAST 30 DAYS: No - HPI Patient complains to provider of: Injury, Pain, Swelling Location: Ankle Occurred: Yesterday Where: Home Onset/Duration: Gradual Quality of pain: Sharp, Throbbing Severity: Moderate Pain Level: 4 Recent injury: Possibly Associated symptoms: Painful ambulation Exacerbated by: Hanging down, Movement, Walking Relieved by: Elevation, Ice, Rest - Related Data Allergies/Adverse Reactions: latex [Latex] Allergy (Mild, Verified 02/21/18 10:40) Generalized rash morphine [Morphine] Allergy (Unknown, Verified 02/21/18 10:40) Anaphylaxis olanzapine [From Zyprexa] Allergy (Unknown, Verified 02/21/18 10:40) Psychosis quetiapine fumarate [From Seroquel] Allergy (Unknown, Verified 02/21/18 10:40) Psychosis Past Medical History - General Information source: Patient - Social History Smoking Status: Current Every Day Smoker Cigarette use (# per day): Yes - Three fourths pack per day Chew tobacco use (# tins/day): No Smoking Education Provided: Yes - 4 minutes Frequency of alcohol use: Rare Drug Abuse: None Family History: Reviewed & Not Pertinent, Other Patient has suicidal ideation: No Patient has homicidal ideation: No - Past Medical History Cardiac Medical History: Reports: Hx Congestive Heart Failure - anxiety, Hx Hypercholesterolemia, Hx Hypertension - NO MEDICATION Pulmonary Medical History: Reports: Hx Sleep Apnea EENT Medical History: Reports: None Neurological Medical History: Reports: Hx Migraine Endocrine Medical History: Reports: None Renal/ Medical History: Reports: None Malignancy Medical History: Reports None GI Medical History: Reports: Hx Gastroesophageal Reflux Disease, Hx Irritable Bowel Musculoskeltal Medical History: Reports Hx Musculoskeletal Deformity, Reports Hx Musculoskeletal Trauma Skin Medical History: Reports None Psychiatric Medical History: Reports: Hx Attention Deficit Hyperactivity Disorder, Hx Bipolar Disorder, Hx Depression, Hx Post Traumatic Stress Disorder Traumatic Medical History: Reports: None Past Surgical History: Reports: Hx Tonsillectomy - UPPP for sleep apnea - Immunizations Hx Diphtheria, Pertussis, Tetanus Vaccination: Yes Review of Systems - Review of Systems Musculoskeletal: Ankle swelling - Pain and swelling Physical Exam - Vital signs Vitals: Temp Pulse Resp BP Pulse Ox 98.6 F 81 20 131/84 H 95 02/21/18 10:54 02/21/18 10:54 02/21/18 10:54 02/21/18 10:54 02/21/18 10:54 - Extremities General upper extremity: Normal inspection, Nontender, Normal color, Normal ROM , Normal temperature General lower extremity: Normal inspection, Nontender, Normal color, Normal ROM , Normal temperature, Normal weight bearing. No: Ivon's sign Ankle: Tender, Ecchymosis - Right, Edema - right, Limited ROM - Pain with range of motion, Unable to bear weight - Pain with ambulation. No: Abrasion, Deformity, Laceration, Positive Nicole's test Foot: Tender - Right, Ecchymosis, Edema - Right, No evidence of FB. No: Abrasion, Deformity - Right, Laceration, Metatarsal compress. pain, Nail injury , Navicular tenderness, Puncture wound, Tender 5th metatarsal, Unable to bear weight Course - Re-evaluation Re-evalutation: 02/21/18 13:07 X-rays discussed with patient. Written reports of x-rays given to patient. Patient was treated with ibuprofen, Andriy wrap, stirrup splint, and crutches. Patient is given a work note to go back to work either Wednesday or and instructions to please follow-up with orthopedics today or tomorrow by telephone to schedule follow-up appointment. Patient was given instructions on elevation and ice. The patient is nontoxic appearing with stable vitals. They are afebrile. Ankle exam shows no deformities with no obvious ligament instability. There is a normal pulse and sensation distally. There is no redness or signs of infection. X-rays show no acute fracture per the radiologist. Patient will be placed in an Andriy wrap for comfort. Crutches will be offered and given if requested. Patient will be instructed to follow-up with not better in 1 week, sooner for increasing pain, fever, redness, numbness , tingling, weakness, any further concerns. Patient will be instructed to rest , ice, elevate their ankle. - Vital Signs Vital signs: Temp Pulse Resp BP Pulse Ox 98.4 F 86 17 133/93 H 97 02/21/18 13:11 02/21/18 13:11 02/21/18 13:11 02/21/18 13:11 02/21/18 13:11 - Diagnostic Test Radiology reviewed: Image reviewed, Reports reviewed Procedures - Immobilization Right Ankle Time completed: 13:15 Pre-Proc Neuro Vasc Exam: Normal Immobilizer type: Andriy wrap, Ankle stirrup, Crutches Performed by: PCT Post-Proc Neuro Vasc Exam: Normal Alignment checked and good: Yes Discharge - Discharge Clinical Impression: Right foot pain Right ankle sprain Qualifiers: Encounter type: initial encounter Involved ligament of ankle: unspecified ligament Qualified Code(s): S93.401A - Sprain of unspecified ligament of right ankle, initial encounter HTN (hypertension) Qualifiers: Hypertension type: unspecified Qualified Code(s): I10 - Essential (primary) hypertension Condition: Stable Disposition: HOME, SELF-CARE Additional Instructions: SPRAINED ANKLE: Your sprained ankle results from stretching or tearing of the ligaments which support the ankle. This usually results from twisting the foot inward and under. The ligaments will require time and protection in order to heal properly. Many ankle sprains are quite disabling, and should be taken seriously. The usual treatment for an ankle sprain is cold packs; protection with tape , splints, or wraps; elevation; and staying off the ankle for at least a day. As the ankle improves, you can walk IF it's not painful to bear weight. Sports are best postponed until healing is complete. More serious sprains usually require strengthening exercises after early healing. Your physician has assessed the seriousness of the ligament injury to your ankle. However, the treatment may change, depending on how your ankle progresses. If further exams were recommended, it is important that you follow through. Call the doctor if your foot becomes numb, painful, or severely swollen. ANDRIY WRAP: A compression dressing (andriy wrap) has been placed. This helps hold the area still. It limits swelling and internal bleeding. The wrap should be comfortably snug -- not tight. You should feel a sense of pressure, but not severe pain under the wrap. Unless the physician tells you otherwise, you can adjust the wrap for comfort. If the wrap causes symptoms suggesting it's too tight -- uncomfortable pressure, swelling or discoloration beyond the wrap, numbness, or severe pain - - you must loosen the wrap. If these symptoms don't resolve promptly, return for re-evaluation. ANKLE STIRRUP SPLINT: You are to use an ankle brace called a stirrup splint. This type of brace allows you to place greater stresses on the ankle without risk of re-injury, and is often used for more severe ankle injuries such as avulsion fractures and ligament ruptures. The splint can be worn over a sock or tape. For proper support, wear the splint with a shoe over it. It's important that the splint fit properly. Adjust the heel tension, if needed. If your splint has air bladders, peel back the bottom of each air bladder, then move the Velcro attachment of the heel strap up or down. Air bladder pressure can be adjusted by pulling up the valve at the top, threading the air tube down into the main bladder, then blowing air into the bladder or squeezing it out. The two sides of the stirrup can be moved forward or back on your ankle by changing the attachment of the main straps. If you are unable to use the ankle comfortably in the splint, return for re -evaluation. USE OF CRUTCHES: The doctor has recommended that you not bear weight at this time. You will need to use crutches. Adjust the crutches so the tops come to about two inches under the armpit while you are standing upright. Use your hands -- not your armpits -- to support your weight. To get into a chair, support yourself with one crutch on the injured side. Hold the chair with the other hand, then lower yourself while putting all your weight on the good leg. Going up stairs is `good leg up, step up, then bring up crutches and bad leg.' Down stairs is `bad leg and crutches down, then bring good leg down.' If you develop numbness or swelling in an arm or hand, you are using the crutches incorrectly. Return if you are having any problems with the crutches. ICE & ELEVATION: Apply ice packs frequently against the painful area. Many different schedules are recommended, such as "20 minutes on, 20 minutes off" or "one hour ice, two hours rest." If you need to work, you may need to go longer between ice treatments. You should plan to have the area ice packed AT LEAST one- fourth of the time. The ice should be applied over the wrap, tape, or splint, or over a layer of cloth -- not directly against the skin. Some ice bags have a built-in cloth and can be put directly on the skin. Your injured part should be elevated as much as possible over the next 48 hours. Try to keep the injury above the level of the heart. Avoid use of the injured area. Elevation and rest will decrease the swelling. USE OF [id number] IBUPROFEN: Ibuprofen (Advil, Nuprin, Medipren, Motrin IB) is a medication for fever and pain control. In addition, it has anti- inflammatory effects which may be beneficial, especially in the treatment of injuries. It's best to take ibuprofen with food. Persons with ulcer disease or allergy to aspirin should notify their physician of this before taking ibuprofen. Ibuprofen can be given every four to six hours, for a total of four doses daily. Age Pain or fever dose Antiinflammatory dose 6-8 yr 200 mg (1 tab) 200 mg (1 tab) 9-11 yr 200 mg (1 tab) 200-400 mg (1-2 tab) 11-14 yr 200-400 mg (1-2 tab) 400 mg (2 tab) 15-adult 400 mg (2 tab) 600 mg (3 tab) FOLLOW-UP CARE: If you have been referred to a physician for follow-up care, call the physician s office for an appointment as you were instructed or within the next two days. If you experience worsening or a significant change in your symptoms, notify the physician immediately or return to the Emergency Department at any time for re-evaluation. Forms: Elevated Blood Pressure, Smoking Cessation Education, Return to Work Referrals: SIMONE COREY MD [Primary Care Provider] - Follow up as needed JULIETA PENG DO [ACTIVE STAFF] - Follow up as needed
[2018-02-21 13:14] VITALS: BP 133/93
== END 2018-02-21 13:13 | disposition home or self-care (01) ==
LOC: ER 10:39
DX: S93.401A Sprain of unspecified ligament of right ankle, initial encounter (principal); X58.XXXA Exposure to other specified factors, initial encounter; M79.671 Pain in right foot; I10 Essential (primary) hypertension; F17.210 Nicotine dependence, cigarettes, uncomplicated; Z71.6 Tobacco abuse counseling; Z91.040 Latex allergy status; Z88.5 Allergy status to narcotic agent; Z88.8 Allergy status to other drugs, medicaments and biological substances
CPT/HCPCS: 99406; 99283; 73610; 73630; L1902

== ENCOUNTER 2018-04-04 18:34 | Emergency (ER) | payer SELFPAY ==
[2018-04-04] MEDS ORDERED: GABAPENTIN 300 MG CAPSULE PO ONE (20:34)
[2018-04-04] MEDS ORDERED: VALACYCLOVIR HCL 500 MG TABLET PO ONE (20:34)
--- NOTE | 2018-04-04 20:40 | ER Document Report ---
HPI - HPI Patient complains to provider of: Skin rash Onset: Last week Onset/Duration: Persistent Quality of pain: Burning Pain Level: 4 Context: Patient complains of painful rash to the right brow area for the past week. Patient states he is gradually started to have some blurred vision. Patient denies any fever. Patient denies any eye drainage or discharge. Patient states pain radiates from the medial to lateral brow area into the lateral aspect of his right forehead area. Associated Symptoms: Other - Skin rash. denies: Fever Exacerbated by: Denies Relieved by: Denies Similar symptoms previously: No Recently seen / treated by doctor: No - ROS ROS below otherwise negative: Yes Systems Reviewed and Negative: Yes All other systems reviewed and negative - CONSTITUTIONAL Constitutional: DENIES: Fever - EENT EENT: REPORTS: Eye problems - DERM Skin Problems: Rash Past Medical History - General Information source: Patient - Social History Smoking Status: Current Every Day Smoker Smoking Education Provided: Yes Frequency of alcohol use: Occasional Drug Abuse: None Occupation: none Lives with: Family Family History: Reviewed & Not Pertinent, Other - Past Medical History Cardiac Medical History: Reports: Hx Hypercholesterolemia, Hx Hypertension - NO MEDICATION Denies: Hx Coronary Artery Disease, Hx Heart Attack Pulmonary Medical History: Reports: Hx Sleep Apnea Denies: Hx Asthma, Hx Bronchitis, Hx COPD, Hx Pneumonia Neurological Medical History: Reports: Hx Migraine. Denies: Hx Cerebrovascular Accident, Hx Seizures Renal/ Medical History: Denies: Hx Peritoneal Dialysis GI Medical History: Reports: Hx Gastroesophageal Reflux Disease, Hx Irritable Bowel Musculoskeletal Medical History: Denies Hx Arthritis, Reports Hx Musculoskeletal Deformity, Reports Hx Musculoskeletal Trauma Psychiatric Medical History: Reports: Hx Attention Deficit Hyperactivity Disorder, Hx Bipolar Disorder, Hx Depression, Hx Post Traumatic Stress Disorder Past Surgical History: Reports: Hx Tonsillectomy - UPPP for sleep apnea, Hx Urinary Tract Surgery - Immunizations Hx Diphtheria, Pertussis, Tetanus Vaccination: Yes Vertical Provider Document - CONSTITUTIONAL Agree With Documented VS: Yes Exam Limitations: No Limitations General Appearance: WD/WN, No Apparent Distress - INFECTION CONTROL TRAVEL OUTSIDE OF THE [place] IN LAST 30 DAYS: No - HEENT HEENT: Atraumatic, Normal ENT Exam, Normocephalic Notes: No fluorescein uptake, no corneal abrasion, ulcer, foreign body or dendrite. - NECK Neck: Normal Inspection, Supple - RESPIRATORY Respiratory: Breath Sounds Normal, No Respiratory Distress - CARDIOVASCULAR Cardiovascular: Regular Rate, Regular Rhythm - MUSCULOSKELETAL/EXTREMETIES Musculoskeletal/Extremeties: MAEW - NEURO Level of Consciousness: Awake, Alert, Appropriate Motor/Sensory: No Motor Deficit - DERM Integumentary: Warm, Dry, Rash - Erythematous tender rash to right brow area. Course - Re-evaluation Re-evalutation: 04/04/18 20:[address] Evans, Dr Evans to bedside for examination. Advises treating for shingles with antiviral medication and gabapentin 300 mg po tid - Vital Signs Vital signs: Temp Pulse Resp BP Pulse Ox 98.7 F 96 17 149/87 H 100 04/04/18 18:58 04/04/18 18:58 04/04/18 18:58 04/04/18 18:58 04/04/18 18:58 Discharge - Discharge Clinical Impression: Shingles Qualifiers: Herpes zoster complications: without complications Qualified Code(s): B02.9 - Zoster without complications Condition: Stable Disposition: HOME, SELF-CARE Instructions: Shingles ([facility]) Additional Instructions: Return immediately for any new or worsening symptoms Followup with an electric gas appliances demonstrator tomorrow for repeat examination. It is important that you have close follow-up given the close proximity of your skin rash to your eye. Let the electric gas appliances demonstrator office know that you were seen in the emergency department and needed follow-up for further evaluation. Prescriptions: Gabapentin 300 mg PO TID #21 capsule Valacyclovir HCl [Valacyclovir] 1,000 mg PO TID #21 tablet Forms: Smoking Cessation Education Referrals: [facility] [Provider Group] - Follow up as needed [facility] [Provider Group] - Follow up tomorrow
[2018-04-04 20:51] VITALS: BP 144/89
== END 2018-04-04 20:51 | disposition home or self-care (01) ==
LOC: ER 18:34
DX: B02.9 Zoster without complications (principal); F17.210 Nicotine dependence, cigarettes, uncomplicated; E78.00 Pure hypercholesterolemia, unspecified; I10 Essential (primary) hypertension
CPT/HCPCS: 99282

== ENCOUNTER 2018-05-16 17:06 | Emergency (ER) | payer OTHER ==
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
[2018-05-16 21:15] VITALS: BP 131/85
== END 2018-05-16 22:10 | disposition home or self-care (01) ==
LOC: ER 17:06
DX: M54.2 Cervicalgia (principal); M54.5 Low back pain; V43.52XA Car driver injured in collision with other type car in traffic accident, initial encounter; F17.210 Nicotine dependence, cigarettes, uncomplicated
CPT/HCPCS: 71046; 72040; 72110; 99284

== ENCOUNTER 2018-07-14 20:50 | Emergency (ER) | payer SELFPAY ==
[2018-07-14] MEDS ORDERED: FLUOXETINE HCL 20 MG CAPSULE PO ONE (22:12)
[2018-07-14] MEDS ORDERED: DIAZEPAM 5 MG TABLET PO ONE (22:12)
--- NOTE | 2018-07-14 22:16 | ER Document Report ---
ED General - General Chief Complaint: Psych Problem Stated Complaint: ANXIETY Time Seen by Provider: 07/14/18 22:11 Notes: Patient is a 38-year-old male with a past medical history of chronic generalized anxiety and bipolar disorder who presents with increased anxiety. Site is been getting progressively more out of control over the last several months but that he has been off of all of his medications for at least the past 2 years due to insurance issues. The patient describes his main concern is being a sensation of chronic generalized and severe anxiety. He has not trying hydroxyzine with minimal improvement at home. No specific trigger or worsening factors. Denies any acute medical concerns. He was advised by his new mental health office to come to the emergency department if his anxiety got progressively more out of control. He denies any suicidal or homicidal ideation. TRAVEL OUTSIDE OF THE [place] IN LAST 30 DAYS: No - Related Data Allergies/Adverse Reactions: latex [Latex] Allergy (Mild, Verified 02/21/18 10:40) Generalized rash morphine [Morphine] Allergy (Unknown, Verified 02/21/18 10:40) Anaphylaxis olanzapine [From Zyprexa] Allergy (Unknown, Verified 02/21/18 10:40) Psychosis quetiapine fumarate [From Seroquel] Allergy (Unknown, Verified 02/21/18 10:40) Psychosis Past Medical History - General Information source: Patient - Social History Smoking Status: Current Every Day Smoker Chew tobacco use (# tins/day): No Frequency of alcohol use: Occasional Drug Abuse: None Lives with: Spouse/Significant other Family History: Reviewed & Not Pertinent, Other Patient has suicidal ideation: No Patient has homicidal ideation: No - Past Medical History Cardiac Medical History: Reports: Hx Congestive Heart Failure - anxiety, Hx Hypercholesterolemia, Hx Hypertension - NO MEDICATION Denies: Hx Coronary Artery Disease, Hx Heart Attack Pulmonary Medical History: Reports: Hx Sleep Apnea Denies: Hx Asthma, Hx Bronchitis, Hx COPD, Hx Pneumonia Neurological Medical History: Reports: Hx Migraine. Denies: Hx Cerebrovascular Accident, Hx Seizures Renal/ Medical History: Denies: Hx Peritoneal Dialysis GI Medical History: Reports: Hx Gastroesophageal Reflux Disease, Hx Irritable Bowel Musculoskeletal Medical History: Denies Hx Arthritis, Reports Hx Musculoskeletal Deformity, Reports Hx Musculoskeletal Trauma Psychiatric Medical History: Reports: Hx Attention Deficit Hyperactivity Disorder, Hx Bipolar Disorder, Hx Depression, Hx Post Traumatic Stress Disorder Past Surgical History: Reports: Hx Tonsillectomy - UPPP for sleep apnea, Hx Urinary Tract Surgery - Immunizations Hx Diphtheria, Pertussis, Tetanus Vaccination: Yes Review of Systems - Review of Systems Notes: Constitutional: Negative for fever. HENT: Negative for sore throat. Eyes: Negative for visual changes. Cardiovascular: Negative for chest pain. Respiratory: Negative for shortness of breath. Gastrointestinal: Negative for abdominal pain, vomiting or diarrhea. Genitourinary: Negative for dysuria. Musculoskeletal: Negative for back pain. Skin: Negative for rash. Neurological: Negative for headaches, weakness or numbness. 10 point ROS negative except as marked above and in HPI. Physical Exam - Vital signs Vitals: Temp Pulse Resp BP Pulse Ox 98.7 F 94 20 145/95 H 96 07/14/18 20:59 07/14/18 20:59 07/14/18 20:59 07/14/18 20:59 07/14/18 20:59 Interpretation: Normal Notes: PHYSICAL EXAMINATION: GENERAL: Well-appearing, well-nourished and in no acute distress. HEAD: Atraumatic, normocephalic. EYES: Pupils equal round and reactive to light, extraocular movements intact, sclera anicteric, conjunctiva are normal. ENT: nares patent, oropharynx clear without exudates. Moist mucous membranes. NECK: Normal range of motion, supple without lymphadenopathy LUNGS: Breath sounds clear to auscultation bilaterally and equal. No wheezes rales or rhonchi. HEART: Regular rate and rhythm without murmurs ABDOMEN: Soft, nontender, normoactive bowel sounds. No guarding, no rebound. No masses appreciated. EXTREMITIES: Normal range of motion, no pitting or edema. No cyanosis. NEUROLOGICAL: No focal neurological deficits. Moves all extremities spontaneously and on command. PSYCH: Moderately anxious SKIN: Warm, Dry, normal turgor, no rashes or lesions noted. Course - Re-evaluation Re-evalutation: 07/14/18 22:16 Patient presents with chronic, generalized anxiety, bipolar disorder that has currently been untreated, not currently following with a physician. He states he is here because his anxiety is out of control and he is treatment. He is scheduled to start within a psychiatric clinic in the coming week and they advised him to come here if his anxiety was getting out of control. Patient denies any acute suicidal or homicidal ideation. He denies any emergent psychiatric concerns. He denies any acute medical concerns. He has not SSRIs in the past and has never developed anemia. I have started him on fluoxetine for chronic generalized anxiety as well as hydroxyzine as needed for at this time will discharge with return precautions and follow-up recommendations. Verbal discharge instructions given a the bedside and opportunity for questions given. Medication warnings reviewed. Patient is in agreement with this plan and has verbalized understanding of return precautions and the need for primary care follow-up in the next 24-72 hours. - Vital Signs Vital signs: Temp Pulse Resp BP Pulse Ox 97.8 F 85 20 140/81 H 97 07/14/18 22:32 07/14/18 22:32 07/14/18 22:32 07/14/18 22:32 07/14/18 22:32 Discharge - Discharge Clinical Impression: Anxiety, Bipolar 1 disorder Condition: Good Disposition: HOME, SELF-CARE Additional Instructions: Please return if you have thoughts of wanting to hurt yourself, hurt others, or have any other symptoms that are concerning to you. Prescriptions: Fluoxetine HCl 20 mg PO DAILY #30 tablet Hydroxyzine Pamoate [Vistaril 50 mg Capsule] 50 mg PO BID PRN #60 capsule PRN Reason: Anxiety Referrals: SIMONE COREY MD [Primary Care Provider] - Follow up as needed
[2018-07-14 22:33] VITALS: BP 140/81
== END 2018-07-14 22:16 | disposition home or self-care (01) ==
LOC: ER 20:50
DX: F41.9 Anxiety disorder, unspecified (principal); F31.9 Bipolar disorder, unspecified; F17.200 Nicotine dependence, unspecified, uncomplicated; I50.9 Heart failure, unspecified; E78.00 Pure hypercholesterolemia, unspecified; I11.0 Hypertensive heart disease with heart failure; Z91.040 Latex allergy status
CPT/HCPCS: 99284

== ENCOUNTER 2018-09-06 16:44 | Emergency (ER) | payer SELFPAY ==
[2018-09-06 16:49] VITALS: BP 146/90
--- NOTE | 2018-09-06 17:19 | ER Document Report ---
ED Flu Like - General Chief Complaint: Flu Symptoms Stated Complaint: COLD SYMPTOMS Time Seen by Provider: 09/06/18 17:04 Mode of Arrival: Ambulatory Information source: Patient Notes: 38-year-old female presents to ED for complaint of body aches cough cold congestion that started on Wednesday. He states he was seen at [facility] yesterday and had a flu test done that was negative. He is alert oriented respirations regular and unlabored speaking in full sentences walking with a even steady gait. TRAVEL OUTSIDE OF THE [place] IN LAST 30 DAYS: No - HPI Patient complains to provider of: 38-year-old male presented to ED for complaint of cough congestion body ach Onset: Other - Wednesday Timing/Duration: Persistent Quality of pain: Achy Severity: Moderate Pain Level: 4 Associated symptoms: Body/muscle aches, Nonproductive cough, Rhinnorhea, Sinus pain/drainage. denies: Shortness of breath Similar symptoms previously: Yes Recently seen / treated by doctor: Yes - Related Data Allergies/Adverse Reactions: latex [Latex] Allergy (Mild, Verified 09/06/18 16:45) Generalized rash morphine [Morphine] Allergy (Unknown, Verified 09/06/18 16:45) Anaphylaxis olanzapine [From Zyprexa] Allergy (Unknown, Verified 09/06/18 16:45) Psychosis quetiapine fumarate [From Seroquel] Allergy (Unknown, Verified 09/06/18 16:45) Psychosis Past Medical History - General Information source: Patient - Social History Smoking Status: Current Every Day Smoker Cigarette use (# per day): Yes - 1/2 pack/day Chew tobacco use (# tins/day): No Smoking Education Provided: Yes - Minutes Frequency of alcohol use: Occasional Drug Abuse: None 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 Lives with: Family Family History: Reviewed & Not Pertinent, Other - Past Medical History Cardiac Medical History: Reports: Hx Hypercholesterolemia, Hx Hypertension - NO MEDICATION Pulmonary Medical History: Reports: Hx Bronchitis, Hx Pneumonia, Hx Sleep Apnea EENT Medical History: Reports: None Neurological Medical History: Reports: Hx Migraine Endocrine Medical History: Reports: None Renal/ Medical History: Reports: None Malignancy Medical History: Reports None GI Medical History: Reports: Hx Gastroesophageal Reflux Disease, Hx Irritable Bowel, Hx Colonoscopy, Hx Endoscopy Musculoskeletal Medical History: Reports Hx Musculoskeletal Deformity, Reports Hx Musculoskeletal Trauma Skin Medical History: Reports None Psychiatric Medical History: Reports: Hx Anxiety, Hx Attention Deficit Hyperactivity Disorder, Hx Bipolar Disorder, Hx Depression, Hx Post Traumatic Stress Disorder Traumatic Medical History: Reports: None Infectious Medical History: Reports: None Past Surgical History: Reports: Hx Adenoidectomy, Hx Cholecystectomy, Hx Tonsillectomy - UPPP for sleep apnea tonsils and adenoids and uvula, Hx Urinary Tract Surgery - Immunizations Immunizations up to date: Yes Hx Diphtheria, Pertussis, Tetanus Vaccination: Yes - 2012 Review of Systems - Review of Systems Constitutional: Fever, Recent illness - On the only EENT: Nose congestion, Nose discharge, Sinus pressure, Sinus discharge, Throat pain Cardiovascular: No symptoms reported Respiratory: Cough Gastrointestinal: No symptoms reported Genitourinary: No symptoms reported Male Genitourinary: No symptoms reported Musculoskeletal: No symptoms reported Skin: No symptoms reported Hematologic/Lymphatic: No symptoms reported Neurological/Psychological: No symptoms reported -: Yes All other systems reviewed and negative Physical Exam - Vital signs Vitals: Temp Pulse Resp BP Pulse Ox 99.0 F 99 18 146/90 H 98 09/06/18 16:48 09/06/18 16:48 09/06/18 16:48 09/06/18 16:48 09/06/18 16:48 Interpretation: Normal - General General appearance: Appears well, Alert - HEENT Head: Normocephalic, Atraumatic Eyes: Normal Pupils: PERRL - Respiratory Respiratory status: No respiratory distress Chest status: Nontender Breath sounds: Normal Chest palpation: Normal - Cardiovascular Rhythm: Regular Heart sounds: Normal auscultation Murmur: No - Abdominal Inspection: Normal Distension: No distension Bowel sounds: Normal Tenderness: Nontender Organomegaly: No organomegaly - Back Back: Normal, Nontender - Extremities General upper extremity: Normal inspection, Nontender, Normal color, Normal ROM, Normal temperature General lower extremity: Normal inspection, Nontender, Normal color, Normal ROM, Normal temperature, Normal weight bearing. No: Ivon's sign - Neurological Neuro grossly intact: Yes Cognition: Normal Orientation: AAOx4 Rony Coma Scale Eye Opening: Spontaneous [place] Coma Scale Verbal: Oriented [place] Coma Scale Motor: Obeys Commands [place] Coma Scale Total: 15 Speech: Normal Motor strength normal: LUE, RUE, LLE, RLE Sensory: Normal - Psychological Associated symptoms: Normal affect, Normal mood - Skin Skin Temperature: Warm Skin Moisture: Dry Skin Color: Normal Course - Re-evaluation Re-evalutation: 09/06/18 21:39 Patient's assessment was consistent with an upper respiratory infection. He was offered Tylenol or Motrin. He stated he would take that at home. He states he will follow-up with his primary doctor. Patient did have elevated blood pressure. He states he has a history of elevated blood pressure but has not been on medications but will follow up with the doctor to get medications. After performing a Medical Screening Examination, I estimate there is LOW risk for ACUTE CORONARY SYNDROME, RESPIRATORY FAILURE, SEPSIS OR MENINGITIS, thus I consider the discharge disposition reasonable. I have reevaluated this patient multiple times and no significant life threatening changes are noted. The patient and I have discussed the diagnosis and risks, and we agree with discharging home with close follow-up. We also discussed returning to the Emergency Department immediately if new or worsening symptoms occur. We have discussed the symptoms which are most concerning (e.g., changing or worsening pain, trouble swallowing or breathing, neck stiffness, fever) that necessitate immediate return. - Vital Signs Vital signs: Temp Pulse Resp BP Pulse Ox 99.0 F 99 18 146/90 H 98 09/06/18 16:48 09/06/18 16:48 09/06/18 16:48 09/06/18 16:48 09/06/18 16:48 Discharge - Discharge Clinical Impression: URI (upper respiratory infection) Qualifiers: URI type: unspecified URI Qualified Code(s): J06.9 - Acute upper respiratory infection, unspecified Condition: Stable Disposition: HOME, SELF-CARE Instructions: Family Physicians / Practices Additional Instructions: UPPER RESPIRATORY ILLNESS: You have a viral infection of the respiratory passages -- a "cold." This common infection causes nasal congestion, drainage, and often sore throat and cough. It is highly contagious. The disease usually lasts about 10 to 14 days. There is no "cure" for the viral infection -- it must run its course. If there is a complication, such as bacterial infection in the nose, sinuses, middle ear, or bronchial tubes, antibiotics may be required. The antibiotics won't affect the virus. Drink plenty of fluids. A humidifier may help. An expectorant medication or decongestant may make you more comfortable. Use acetaminophen or ibuprofen for fever or aches. See the doctor if fever persists over two days, if there is any significant worsening of your symptoms, or if you simply fail to improve as expected. COUGH-SUPPRESSANT & EXPECTORANT MEDICATION: You are to use a cough medication as needed for relief of symptoms. This medicine is a combination of an expectorant (to make the mucous thinner and more easily "coughed up") and a cough suppressant (to reduce the frequency of coughing). The cough-suppressant medicine is related to narcotics. You may experience mild nausea and sleepiness. Some patients who are very sensitive to narcotics may have stomach pain from this medicine. Taking the medicine with food reduces these side effects. Do not drive or work with machinery until you know how this medicine affects you. The expectorant should have no side effects. Iodine-containing expectorants (such as organidin) should not be taken by persons with active thyroid disease unless approved by your doctor. Call the doctor if you develop shortness of breath, hives, rash, itching, lightheadedness, or severe nausea and vomiting. USE OF ACETAMINOPHEN (Tylenol): Acetaminophen may be taken for pain relief or fever control. It's much safer than aspirin, offering a wider range of "safe" dosages. It is safe during . Some brand names are Tylenol, Panadol, Datril, Anacin 3, Tempra, and Liquiprin. Acetaminophen can be repeated every four hours. The following are maximum recommended dosages: >89 pounds or adults 650 mg to 900 mg Acetaminophen can be repeated every four hours. Maximum dose not to exceed 4000 mg a day. SMOKING: If you smoke, you should stop smoking. The tar and chemicals in cigarette smoke are harmful. Smoking has been shown to cause: emphysema chronic bronchitis lung cancer mouth and throat cancer stomach and pancreas cancer premature aging defects In addition, smoking increases ear and lung infections in children of smokers. With high blood pressure you should not take normal bouz-ybn-ezydoqd cough and cold medicines as this will elevate your blood pressure. You should use Coricidin HB for your cough cold congestion. You can also use Flonase nasal spray which is rzzm-klf-[id number]. If you have sore throat you should use Chloraseptic spray for the sore throat. You can also use salt and soda solution to remove the postnasal drip from the back your throat which is causing you to cough. Salt and soda solution 1 quart of water 1 tablespoon of salt 1 teaspoon of baking soda Mixed 3 ingredients together and boil for 1 minute Placed in a covered quart jar Use 1/2 ounce of cold solution to gargle 3 times a day These follow-up with your primary doctor for your blood pressure and your cough and cold symptoms. I have given you a list of local doctors. FOLLOW-UP CARE: If you have been referred to a physician for follow-up care, call the physicians office for an appointment as you were instructed or within the next two days. If you experience worsening or a significant change in your symptoms, notify the physician immediately or return to the Emergency Department at any time for re-evaluation. Forms: Elevated Blood Pressure, Smoking Cessation Education, Return to Work
== END 2018-09-06 17:25 | disposition home or self-care (01) ==
LOC: ER 16:44
DX: J06.9 Acute upper respiratory infection, unspecified (principal); M79.10 Myalgia, unspecified site; R05 Cough; R09.81 Nasal congestion; F17.210 Nicotine dependence, cigarettes, uncomplicated; I10 Essential (primary) hypertension
CPT/HCPCS: 99283

== ENCOUNTER 2018-09-14 09:53 | Emergency (ER) | payer SELFPAY ==
[2018-09-14] MEDS ORDERED: ONDANSETRON 4 MG TAB.RAPDIS PO ONE (10:19)
[2018-09-14] MEDS ORDERED: ALBUTEROL SULFATE 0.083% NEB 2.5 MG/3 ML AMPUL NEB ONE (10:19)
[2018-09-14] MEDS ORDERED: HYDROCODONE/ACETAMINOPHEN 5-325 MG TABLET PO ONE (10:23)
--- NOTE | 2018-09-14 10:23 | ER Document Report ---
ED Medical Screen (RME) - General Chief Complaint: Dizziness Stated Complaint: HEADACHE/BODY ACHE/VOMITING Time Seen by Provider: 09/14/18 09:59 TRAVEL OUTSIDE OF THE [place] IN LAST 30 DAYS: No - Related Data Allergies/Adverse Reactions: latex [Latex] Allergy (Mild, Verified 09/14/18 09:54) Generalized rash morphine [Morphine] Allergy (Unknown, Verified 09/14/18 09:54) Anaphylaxis olanzapine [From Zyprexa] Allergy (Unknown, Verified 09/14/18 09:54) Psychosis quetiapine fumarate [From Seroquel] Allergy (Unknown, Verified 09/14/18 09:54) Psychosis Past Medical History - Social History Frequency of alcohol use: Rare Drug Abuse: None - Past Medical History Cardiac Medical History: Reports: Hx Congestive Heart Failure - anxiety, Hx Hypercholesterolemia, Hx Hypertension - NO MEDICATION Denies: Hx Coronary Artery Disease, Hx Heart Attack Pulmonary Medical History: Reports: Hx Bronchitis, Hx Pneumonia, Hx Sleep Apnea Denies: Hx Asthma, Hx COPD Neurological Medical History: Reports: Hx Migraine. Denies: Hx Cerebrovascular Accident, Hx Seizures Renal/ Medical History: Denies: Hx Peritoneal Dialysis GI Medical History: Reports: Hx Gastroesophageal Reflux Disease, Hx Irritable Bowel, Hx Colonoscopy, Hx Endoscopy Musculoskeltal Medical History: Denies Hx Arthritis, Reports Hx Musculoskeletal Deformity, Reports Hx Musculoskeletal Trauma Psychiatric Medical History: Reports: Hx Anxiety, Hx Attention Deficit Hyperactivity Disorder, Hx Bipolar Disorder, Hx Depression, Hx Post Traumatic Stress Disorder Past Surgical History: Reports: Hx Adenoidectomy, Hx Cholecystectomy, Hx Tonsillectomy - UPPP for sleep apnea tonsils and adenoids and uvula, Hx Urinary Tract Surgery - Immunizations Immunizations up to date: Yes Hx Diphtheria, Pertussis, Tetanus Vaccination: Yes - 2012 Physical Exam - Vital signs Vitals: Temp Pulse Resp BP Pulse Ox 98.1 F 97 18 138/82 H 100 09/14/18 09:57 09/14/18 09:57 09/14/18 09:57 09/14/18 09:57 09/14/18 09:57 Course - Vital Signs Vital signs: Temp Pulse Resp BP Pulse Ox 98.1 F 97 18 138/82 H 100 09/14/18 09:57 09/14/18 09:57 09/14/18 09:57 09/14/18 09:57 09/14/18 09:57
--- NOTE | 2018-09-14 10:40 | ER Document Report ---
ED General - General Chief Complaint: Dizziness Stated Complaint: HEADACHE/BODY ACHE/VOMITING Time Seen by Provider: 09/14/18 09:59 Notes: 38-year-old male to the emergency department chief complaint of not feeling well. Patient was seen here a few days ago. Continues to feel bad. Bad cough, dizzy, nausea and vomiting. Generally not feeling well. TRAVEL OUTSIDE OF THE [place] IN LAST 30 DAYS: No - HPI Onset: Last week Onset/Duration: Gradual Quality of pain: Achy, Dull Severity: Moderate Pain Level: 3 Associated symptoms: Chills, Nonproductive cough, Shortness of breath, Weakness, Other - Dizziness Exacerbated by: Denies - Related Data Allergies/Adverse Reactions: latex [Latex] Allergy (Mild, Verified 09/14/18 09:54) Generalized rash morphine [Morphine] Allergy (Unknown, Verified 09/14/18 09:54) Anaphylaxis olanzapine [From Zyprexa] Allergy (Unknown, Verified 09/14/18 09:54) Psychosis quetiapine fumarate [From Seroquel] Allergy (Unknown, Verified 09/14/18 09:54) Psychosis Past Medical History - General Information source: Patient - Social History Smoking Status: Current Every Day Smoker Cigarette use (# per day): Yes Frequency of alcohol use: Rare Drug Abuse: None Lives with: Family Family History: Reviewed & Not Pertinent, Other Patient has suicidal ideation: No Patient has homicidal ideation: No - Past Medical History Cardiac Medical History: Reports: Hx Congestive Heart Failure - anxiety, Hx Hypercholesterolemia, Hx Hypertension - NO MEDICATION Denies: Hx Coronary Artery Disease, Hx Heart Attack Pulmonary Medical History: Reports: Hx Bronchitis, Hx Pneumonia, Hx Sleep Apnea Denies: Hx Asthma, Hx COPD Neurological Medical History: Reports: Hx Migraine. Denies: Hx Cerebrovascular Accident, Hx Seizures Renal/ Medical History: Denies: Hx Peritoneal Dialysis GI Medical History: Reports: Hx Gastroesophageal Reflux Disease, Hx Irritable Bowel, Hx Colonoscopy, Hx Endoscopy Musculoskeletal Medical History: Denies Hx Arthritis, Reports Hx Musculoskeletal Deformity, Reports Hx Musculoskeletal Trauma Psychiatric Medical History: Reports: Hx Anxiety, Hx Attention Deficit Hyperact ivity Disorder, Hx Bipolar Disorder, Hx Depression, Hx Post Traumatic Stress Disorder Past Surgical History: Reports: Hx Adenoidectomy, Hx Cholecystectomy, Hx Tonsillectomy - UPPP for sleep apnea tonsils and adenoids and uvula, Hx Urinary Tract Surgery - Immunizations Immunizations up to date: Yes Hx Diphtheria, Pertussis, Tetanus Vaccination: Yes - 2012 Review of Systems - Review of Systems Notes: Constitutional: Complaining of chills, weakness, generally not feeling well. EENT: denies: Eye discharge, Blurred vision, Tearing, Double vision, Nose congestion, Nose discharge, Throat swelling, Mouth pain Cardiovascular: denies: Palpitations, Heart racing, Orthopnea, Dyspnea, Chest pain Respiratory: Complaining of cough, wheeze, congestion Gastrointestinal: denies: Abdominal pain, Diarrhea, Nausea, Vomiting, Black stools, bright red blood in stool Genitourinary: denies: Burning, Dysuria, Discharge, Frequency, Flank pain, Hematuria Musculoskeletal: denies: Joint pain, Joint swelling, Muscle pain, Muscle stiffness, back pain Hematologic/Lymphatic: denies: Anemia, Easy bleeding, Easy bruising, Blood clots Neurological/Psychological: denies: Confusion, Dementia, Depression, Loss of consciousness. Complaining of dizziness. Skin: No lesions, no masses, no skin breakdown, no abscesses Physical Exam - Vital signs Vitals: Temp Pulse Resp BP Pulse Ox 98.1 F 97 18 138/82 H 100 09/14/18 09:57 09/14/18 09:57 09/14/18 09:57 09/14/18 09:57 09/14/18 09:57 Interpretation: Normal - General General appearance: Appears well, Alert - HEENT Head: Normocephalic, Atraumatic Eyes: Normal Pupils: PERRL - Respiratory Respiratory status: No respiratory distress Chest status: Nontender Breath sounds: Normal Chest palpation: Normal - Cardiovascular Rhythm: Regular Heart sounds: Normal auscultation Murmur: No - Abdominal Inspection: Normal Distension: No distension Bowel sounds: Normal Tenderness: Nontender Organomegaly: No organomegaly - Back Back: Normal, Nontender - Extremities General upper extremity: Normal inspection, Nontender, Normal color, Normal ROM, Normal temperature General lower extremity: Normal inspection, Nontender, Normal color, Normal ROM, Normal temperature, Normal weight bearing. No: Ivon's sign - Neurological Neuro grossly intact: Yes Cognition: Normal Orientation: AAOx4 Rony Coma Scale Eye Opening: Spontaneous [place]ony Coma Scale Verbal: Oriented [place] Coma Scale Motor: Obeys Commands [place] Coma Scale Total: 15 Speech: Normal Motor strength normal: LUE, RUE, LLE, RLE Sensory: Normal - Psychological Associated symptoms: Normal affect, Normal mood - Skin Skin Temperature: Warm Skin Moisture: Dry Skin Color: Normal Course - Re-evaluation Re-evalutation: 09/14/18 12:04 Chest x-ray unremarkable. Gave breathing treatment. Feeling a little bit better. 09/14/18 12:05 Due to the fact the patient is a heavy smoker and still having respiratory symptoms and intermittent fevers and cough after a week of conservative treatment will start him on some amoxicillin, prednisone and albuterol. Giving something to help suppress the cough. Couple of days of work and advised to return if symptoms are getting worse. - Vital Signs Vital signs: Temp Pulse Resp BP Pulse Ox 98.5 F 82 18 121/72 100 09/14/18 12:05 09/14/18 12:05 09/14/18 12:05 09/14/18 12:05 09/14/18 12:05 Discharge - Discharge Clinical Impression: Bronchitis Condition: Good Disposition: HOME, SELF-CARE Instructions: Bronchitis ([facility]), Dizziness ([facility]) Prescriptions: Albuterol Sulfate [Ventolin Hfa 8 gm Mdi (1 Mdi/ER Disp)] 2 puff IH ASDIR PRN #1 inhaler PRN Reason: Amoxicillin Trihydrate [Amoxil 500 mg Capsule] 500 mg PO Q8H 7 Days #21 capsule Hydrocodone/Acetaminophen [[place] 5-325 mg Tablet] 1 tab PO Q8H PRN 3 Days #9 tablet PRN Reason: Ondansetron [Zofran Odt 4 mg Tablet] 1 - 2 tab PO Q4H PRN #15 tab.rapdis PRN Reason: For Nausea/Vomiting Forms: Return to Work Referrals: [facility] [Provider Group] - Follow up in 3-5 days
--- NOTE | 2018-09-14 11:28 | RADIOLOGY REPORT (SQ) ---
EXAM DESCRIPTION: CHEST 2 VIEWS COMPLETED DATE/TIME: 09/14/2018 10:56 am REASON FOR STUDY: cough COMPARISON: 05/16/2018 EXAM PARAMETERS: NUMBER OF VIEWS: two views TECHNIQUE: Digital Frontal and Lateral radiographic views of the chest acquired. RADIATION DOSE: NA LIMITATIONS: none FINDINGS: LUNGS AND PLEURA: No opacities, masses or pneumothorax. No pleural effusion. MEDIASTINUM AND HILAR STRUCTURES: No masses or contour abnormalities. HEART AND VASCULAR STRUCTURES: Heart normal size. No evidence for failure. BONES: No acute findings. HARDWARE: None in the chest. OTHER: No other significant finding. IMPRESSION: No acute abnormality of the lungs. No focal airspace opacity. TECHNICAL DOCUMENTATION: JOB ID: [id number] [facility]- All Rights Reserved Reading location - IP/workstation name: [email or web address]
[2018-09-14 12:05] VITALS: BP 121/72
== END 2018-09-14 12:18 | disposition home or self-care (01) ==
LOC: ER 09:53
DX: J40 Bronchitis, not specified as acute or chronic (principal); R42 Dizziness and giddiness; R51 Headache; M79.10 Myalgia, unspecified site; R11.10 Vomiting, unspecified; R11.2 Nausea with vomiting, unspecified; R05 Cough; R06.02 Shortness of breath; R53.1 Weakness; F17.210 Nicotine dependence, cigarettes, uncomplicated; I11.0 Hypertensive heart disease with heart failure
CPT/HCPCS: 71046; 82962; 87070; 87880; 94640; 99284; S0119

== ENCOUNTER 2019-02-02 16:16 | Emergency (ER) | payer SELFPAY ==
--- NOTE | 2019-02-02 18:08 | ER Document Report ---
HPI - HPI Time Seen by Provider: 02/02/19 18:01 Pain Level: 2 Notes: Patient is a 38-year-old male presenting to the emergency department with request for work note. Patient states he was seen at [facility] diagnosed with shingles this morning. He states that they started him on valacyclovir. 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 He denies any nausea, vomiting, diarrhea or fevers. - DERM Skin Color: Other Past Medical History - General Information source: Patient - Social History Smoking Status: Never Smoker Frequency of alcohol use: None Drug Abuse: None Family History: Reviewed & Not Pertinent, Other Patient has suicidal ideation: No Patient has homicidal ideation: No - Past Medical History Cardiac Medical History: Reports: Hx Congestive Heart Failure - anxiety, Hx Hypercholesterolemia, Hx Hypertension - NO MEDICATION Denies: Hx Coronary Artery Disease, Hx Heart Attack Pulmonary Medical History: Reports: Hx Bronchitis, Hx Pneumonia, Hx Sleep Apnea Denies: Hx Asthma, Hx COPD Neurological Medical History: Reports: Hx Migraine. Denies: Hx Cerebrovascular Accident, Hx Seizures Renal/ Medical History: Denies: Hx Peritoneal Dialysis GI Medical History: Reports: Hx Gastroesophageal Reflux Disease, Hx Irritable Bowel, Hx Colonoscopy, Hx Endoscopy Musculoskeletal Medical History: Denies Hx Arthritis, Reports Hx Musculoskeletal Deformity, Reports Hx Musculoskeletal Trauma Psychiatric Medical History: Reports: Hx Anxiety, Hx Attention Deficit Hyperactivity Disorder, Hx Bipolar Disorder, Hx Depression, Hx Post Traumatic Stress Disorder Past Surgical History: Reports: Hx Adenoidectomy, Hx Cholecystectomy, Hx Tonsillectomy - UPPP for sleep apnea tonsils and adenoids and uvula, Hx Urinary Tract Surgery - Immunizations Immunizations up to date: Yes Hx Diphtheria, Pertussis, Tetanus Vaccination: Yes - 2012 [facility] Provider Document - CONSTITUTIONAL Notes: PHYSICAL EXAMINATION: GENERAL: Well-appearing, well-nourished and in no acute distress. HEAD: Atraumatic, normocephalic. EYES: Pupils equal round extraocular movements intact, conjunctiva are normal. ENT: Nares patent NECK: Normal range of motion LUNGS: No respiratory distress Musculoskeletal: Normal range of motion NEUROLOGICAL: Normal speech, normal gait. PSYCH: Normal mood, normal affect. SKIN: Maculopapular rash noted to left jovel area. - INFECTION CONTROL TRAVEL OUTSIDE OF THE [place] IN LAST 30 DAYS: No Course - Re-evaluation Re-evalutation: 02/02/19 20:47 Patient has a rash that is consistent with shingles. Patient already prescribed these medications by previous provider this morning. Will provide work note for today and tomorrow off of work. - Vital Signs Vital signs: Temp Pulse Resp BP Pulse Ox 98.6 F 116 H 20 153/102 H 96 02/02/19 16:20 02/02/19 16:20 02/02/19 16:20 02/02/19 16:20 02/02/19 16:20 Discharge - Discharge Clinical Impression: Shingles Condition: Stable Disposition: HOME, SELF-CARE Additional Instructions: Please continue to take the medication that was prescribed to you by the emergency department at [facility] for shingles. You may return to work on Wednesday. Forms: Return to Work
[2019-02-02 18:18] VITALS: BP 150/98
== END 2019-02-02 18:20 | disposition home or self-care (01) ==
LOC: ER 16:16
DX: Z02.89 Encounter for other administrative examinations (principal); B02.9 Zoster without complications
CPT/HCPCS: 99283

== ENCOUNTER 2019-05-07 20:28 | Emergency (ER) | payer SELFPAY ==
[2019-05-08] MEDS ORDERED: HYDROCODONE/ACETAMINOPHEN 5-325 MG (6 TAB/ER DISP) PO PRN (00:10)
[2019-05-08] MEDS ORDERED: HYDROCORTISONE ACETATE 25 MG SUPP.RECT PR ONE (00:10)
--- NOTE | 2019-05-08 00:14 | ER Document Report ---
HPI - HPI Time Seen by Provider: 05/07/19 23:50 Pain Level: 4 Context: Patient is a 38-year-old male that comes emergency department for chief complaint of a painful hemorrhoid. He states he suddenly felt it at about 6 PM, he felt a push out, he states that it is uncomfortable to sit on the area. He has not bleeding from the area. He has hemorrhoids in the past but this is the largest. He denies abdominal pain, he denies any fever or symptoms otherwise. He states he has IBS and frequent diarrhea and spent a lot of time on the toilet. Past Medical History - General Information source: Patient - Social History Smoking Status: Never Smoker Frequency of alcohol use: None Drug Abuse: None Lives with: Family Family History: Reviewed & Not Pertinent, Other - Past Medical History Cardiac Medical History: Reports: Hx Hypercholesterolemia, Hx Hypertension - NO MEDICATION Denies: Hx Coronary Artery Disease, Hx Heart Attack Pulmonary Medical History: Reports: Hx Bronchitis, Hx Pneumonia, Hx Sleep Apnea Denies: Hx Asthma, Hx COPD Neurological Medical History: Reports: Hx Migraine. Denies: Hx Cerebrovascular Accident, Hx Seizures Renal/ Medical History: Denies: Hx Peritoneal Dialysis GI Medical History: Reports: Hx Gastroesophageal Reflux Disease, Hx Irritable Bowel, Hx Colonoscopy, Hx Endoscopy Musculoskeletal Medical History: Denies Hx Arthritis, Reports Hx Musculoskeletal Deformity, Reports Hx Musculoskeletal Trauma Psychiatric Medical History: Reports: Hx Anxiety, Hx Attention Deficit Hyperactivity Disorder, Hx Bipolar Disorder, Hx Depression, Hx Post Traumatic Stress Disorder Past Surgical History: Reports: Hx Adenoidectomy, Hx Cholecystectomy, Hx Tonsillectomy - UPPP for sleep apnea tonsils and adenoids and uvula, Hx Urinary Tract Surgery - Immunizations Immunizations up to date: Yes Hx Diphtheria, Pertussis, Tetanus Vaccination: Yes - 2012 [facility] Provider Document - CONSTITUTIONAL General Appearance: WD/WN, No Apparent Distress - Patient sitting awkwardly on the bed but does not appear to be in distress, Obese - INFECTION CONTROL TRAVEL OUTSIDE OF THE [place] IN LAST 30 DAYS: No - HEENT HEENT: Atraumatic, Normocephalic - NECK Neck: Normal Inspection - RESPIRATORY Respiratory: Breath Sounds Normal, No Respiratory Distress - CARDIOVASCULAR Cardiovascular: Regular Rate, Regular Rhythm - GI/ABDOMEN Gastrointestinal: Abdomen Soft, Abdomen Non-Tender. negative: Abdomen Tender Notes: There is a thrombosed external hemorrhoid at the 8 o'clock position, no surrounding erythema or notable tenderness, no fissure, unremarkable rectal examination otherwise. - BACK Back: Normal Inspection - MUSCULOSKELETAL/EXTREMETIES Musculoskeletal/Extremeties: MAEW, FROM, Non-Tender - NEURO Level of Consciousness: Awake, Alert, Appropriate Motor/Sensory: No Motor Deficit, No Sensory Deficit - DERM Integumentary: Warm, Dry, No Rash Course - Re-evaluation Re-evalutation: Patient is laughing and well-appearing on my exam. Soft benign abdomen. He has a single thrombosed external hemorrhoid without current bleeding or findings otherwise. The hemorrhoid is not enormous. He does not appear to be in pain from this. There is no evidence of secondary infection over the area. However patient is having a lot of discomfort when he tries to sit on the area and he states he cannot sleep. He also states that he has persistent diarrhea and he has had this for a long time (15 years), he does request pain medication. He was provided with this. He was also provided with strategy of medications for treating the hemorrhoid. We did discuss lancing this but this was deferred because of possible worsening of symptoms. He will be referred to the surgical clinic as well. Patient states satisfaction and agreement. - Vital Signs Vital signs: Temp Pulse Resp BP Pulse Ox 98.5 F 103 H 18 178/102 H 97 05/07/19 20:41 05/07/19 20:41 05/07/19 20:41 05/07/19 20:41 05/07/19 20:41 Discharge - Discharge Clinical Impression: Thrombosed external hemorrhoid Condition: Stable Disposition: HOME, SELF-CARE Additional Instructions: Your evaluation shows a thrombosed external hemorrhoid. Use suppositories as prescribed, use topical lidocaine for symptom management. You have been provided with pain medicine if needed, these may slow to your bowels. Imodium [id number] can also start on your bowels. Also if needed you can take your at home stool softeners. The goal is to have bowel movements regularly but not frequently without any straining. See additional recommendations below. Follow-up with the surgical clinic for additional management if this continues and will not resolve. Return for any concerning symptoms. Hemorrhoids You have hemorrhoids. These are formed by enlargement of veins around the anus. The cause is increased pressure in the veins, from or straining at bowel movements. Hemorrhoids often cause itching and bleeding with bowel movements. When a hemorrhoid becomes clotted, severe pain and swelling result. Soothing creams and suppositories are often prescribed. Warm sitz-baths may also decrease pain, swelling, and itching. Eat a high-fiber diet. Stool softeners such as Metamucil will help. Keep the area very clean. Medicated cleansing pads (such as Tucks) are useful after bowel movements. A hose-mounted shower unit (like a shower massager at low water pressure) can be used to clean around tender hemorrhoid tags. You should call the doctor or return if you develop fever, increasing pain, or an enlarging mass around the anus, or if you simply fail to improve with treatment. Prescriptions: Phenylephrine HCl [Anusol Suppository] 1 supp.rect DE BID #28 supp.rect Lidocaine HCl [Aspercreme] 76.5 gm TP ASDIR PRN #1 cream..g. PRN Reason: Hydrocodone/Acetaminophen [[place] 5-325 mg Tablet] 1 - 2 tab PO ASDIR #10 tablet Referrals: [facility] [Provider Group] - Follow up as needed
[2019-05-08 00:31] VITALS: BP 124/68
== END 2019-05-08 00:24 | disposition home or self-care (01) ==
LOC: ER 20:28
DX: K64.5 Perianal venous thrombosis (principal); I10 Essential (primary) hypertension
CPT/HCPCS: 99282; J3490

== ENCOUNTER → 2019-08-03 | Outpatient (CLI) | payer MEDICAID ==
--- NOTE | 2019-08-03 12:55 | RADIOLOGY REPORT (SQ) ---
EXAM DESCRIPTION: SHOULDER RIGHT 2 OR MORE VIEWS COMPLETED DATE/TIME: 08/03/2019 12:12 pm REASON FOR STUDY: PAIN IN RIGHT SHOULDER M25.511 PAIN IN RIGHT SHOULDER COMPARISON: None. NUMBER OF VIEWS: Three views. TECHNIQUE: Internal rotation, external rotation, and Y view images acquired of the right shoulder. LIMITATIONS: None. FINDINGS: MINERALIZATION: Normal. BONES: No acute fracture. No worrisome bone lesions. JOINTS: No dislocation. VISUALIZED LUNGS AND RIBS: No pneumothorax. No rib fracture. SOFT TISSUES: No radiopaque foreign body. OTHER: No other significant finding. IMPRESSION: NEGATIVE STUDY OF THE RIGHT SHOULDER. NO RADIOGRAPHIC EVIDENCE OF ACUTE INJURY. TECHNICAL DOCUMENTATION: JOB ID: [id number] [employer]- All Rights Reserved Reading location - IP/workstation name: [email or web address]
== END ==
LOC: OD 11:53
PROVIDERS: ATTEND Nurse Practitioner Family
DX: M25.511 Pain in right shoulder (principal)

== ENCOUNTER 2020-01-13 11:27 | Emergency (ER) | payer MEDICAID ==
[2020-01-13 11:32] VITALS: BP 157/97
[2020-01-13] MEDS ORDERED: KETOROLAC TROMETHAMINE 60 MG/2 ML SDV IM ONE (11:39)
--- NOTE | 2020-01-13 11:40 | ER Document Report ---
HPI - HPI Time Seen by Provider: 01/13/20 11:36 Pain Level: 1 Notes: 39-year-old male patient presents emergency department chief complaint of left knee pain. Patient denies any direct trauma. He states he has had intermittent knee pain for the last few years however is worsened over the last week. Patient states he feels like something not pulled inside he is unable to fully straighten his knee. - REPRODUCTIVE Reproductive: DENIES: : - MUSCULOSKELETAL Musculoskeletal: REPORTS: Extremity pain Past Medical History - General Information source: Patient - Social History Smoking Status: Current Every Day Smoker Chew tobacco use (# tins/day): No Frequency of alcohol use: Social Drug Abuse: None Family History: Reviewed & Not Pertinent, Other Patient has homicidal ideation: No - Past Medical History Cardiac Medical History: Reports: Hx Congestive Heart Failure - anxiety, Hx Hypercholesterolemia, Hx Hypertension - NO MEDICATION Denies: Hx Coronary Artery Disease, Hx Heart Attack Pulmonary Medical History: Reports: Hx Bronchitis, Hx Pneumonia, Hx Sleep Apnea Denies: Hx Asthma, Hx COPD Neurological Medical History: Reports: Hx Migraine. Denies: Hx Cerebrovascular Accident, Hx Seizures Renal/ Medical History: Denies: Hx Peritoneal Dialysis GI Medical History: Reports: Hx Gastroesophageal Reflux Disease, Hx Irritable Bowel, Hx Colonoscopy, Hx Endoscopy Musculoskeletal Medical History: Denies Hx Arthritis, Reports Hx Musculoskeletal Deformity, Reports Hx Musculoskeletal Trauma Psychiatric Medical History: Reports: Hx Anxiety, Hx Attention Deficit Hyperactivity Disorder, Hx Bipolar Disorder, Hx Depression, Hx Post Traumatic Stress Disorder Past Surgical History: Reports: Hx Adenoidectomy, Hx Cholecystectomy, Hx To nsillectomy - UPPP for sleep apnea tonsils and adenoids and uvula, Hx Urinary Tract Surgery - Immunizations Immunizations up to date: Yes Hx Diphtheria, Pertussis, Tetanus Vaccination: Yes - 2012 [facility] Provider Document - CONSTITUTIONAL Notes: PHYSICAL EXAMINATION: GENERAL: Well-appearing, well-nourished and in no acute distress. HEAD: Atraumatic, normocephalic. EYES: Pupils equal round extraocular movements intact, conjunctiva are normal. ENT: Nares patent NECK: Normal range of motion LUNGS: No respiratory distress Musculoskeletal: Limited range of motion to left lower extremity at the knee. Patient has pain with flexion. No bony crepitus or deformity felt. No obvious swelling or ecchymosis. NEUROLOGICAL: Normal speech. PSYCH: Normal mood, normal affect. SKIN: Warm, Dry, normal turgor, no rashes or lesions noted. - INFECTION CONTROL TRAVEL OUTSIDE OF THE [place] IN LAST 30 DAYS: No Course - Re-evaluation Re-evalutation: Knee X-Ray 01/13/20 11:39 IMPRESSION: No radiographic abnormality of the left knee. - Vital Signs Vital signs: Temp Pulse Resp BP Pulse Ox 98.1 F 96 20 157/97 H 98 01/13/20 11:32 01/13/20 11:30 01/13/20 11:30 01/13/20 11:30 01/13/20 11:30 Procedures - Immobilization Left knee Immobilizer type: Knee immobilizer Discharge - Discharge Clinical Impression: Left knee pain Qualifiers: Chronicity: acute Qualified Code(s): M25.562 - Pain in left knee Condition: Stable Disposition: HOME, SELF-CARE Instructions: Use of Crutches ([facility]), Ice & Elevation ([facility]), Suspected Internal Knee Injury ([facility]), Knee Immobilizing Splint ([facility]) Additional Instructions: Please follow all directions as outlined on your discharge instructions. Take pain medication only for severe pain. Otherwise take ibuprofen 600 mg every 6 hours. Please follow-up with orthopedics if pain not significantly improved over the next 3 to 5 days. Prescriptions: Hydrocodone/Acetaminophen [[place] 5-325 mg Tablet] 1 tab PO Q6H #10 tablet Referrals: NATALYA CALIX, ASSOCIATE PROFESSOR OF RADIOLOGY [Primary Care Provider] - Follow up as needed
--- NOTE | 2020-01-13 12:18 | RADIOLOGY REPORT (SQ) ---
EXAM DESCRIPTION: KNEE LEFT 4 VIEW IMAGES COMPLETED DATE/TIME: 01/13/2020 10:56 am REASON FOR STUDY: pain, decreased ROM COMPARISON: None. NUMBER OF VIEWS: Four views. TECHNIQUE: AP, lateral, and both oblique radiographic images acquired of the left knee. LIMITATIONS: None. FINDINGS: MINERALIZATION: Normal. BONES: No acute fracture or dislocation. No worrisome bone lesions. JOINT: No effusion. SOFT TISSUES: No soft tissue swelling. No radio-opaque foreign body. OTHER: No other significant finding. IMPRESSION: No radiographic abnormality of the left knee. TECHNICAL DOCUMENTATION: JOB ID: [id number] 2010 [employer]- All Rights Reserved Reading location - IP/workstation name: [email or web address]
== END 2020-01-13 12:46 | disposition home or self-care (01) ==
LOC: ER 11:27
DX: M25.562 Pain in left knee (principal); F17.200 Nicotine dependence, unspecified, uncomplicated; I50.9 Heart failure, unspecified; E78.00 Pure hypercholesterolemia, unspecified; I11.0 Hypertensive heart disease with heart failure
CPT/HCPCS: 99283; 96372; 73564; J1885

== ENCOUNTER 2020-03-18 06:02 | Emergency (ER) | payer MEDICAID ==
--- NOTE | 2020-03-18 08:31 | ER Document Report ---
ED General - General Chief Complaint: Dizziness Stated Complaint: LIGHT HEADED/DIZZY/HEAD INJURY Time Seen by Provider: 03/18/20 08:07 Primary Care Provider: NATALYA CALIX NP [Primary Care Provider] - Follow up as needed Notes: 39-year-old male who was working on a deck this weekend and hit his head. He hit his head on a deck board. There was a small cut on his head that is healing. Patient states his head has been hurting him since he describes severe headaches on and off. Denies blurred vision denies extremity numbness tingling is complains of dizziness. Denies chest pain denies shortness of breath. St ates it comes and goes. He denies any problems hearing or talking. Denies blurred vision. Denies chest pain denies shortness of breath. Describes the pain is severe in the scalp. Denies any abdominal pain. The patient was driving to work today felt a little dizzy and decided to come get checked out. TRAVEL OUTSIDE OF THE [place] IN LAST 30 DAYS: No - Related Data Allergies/Adverse Reactions: latex [Latex] Allergy (Mild, Verified 03/18/20 08:36) Generalized rash morphine [Morphine] Allergy (Unknown, Verified 03/18/20 08:36) Anaphylaxis olanzapine [From Zyprexa] Allergy (Unknown, Verified 03/18/20 08:36) Psychosis quetiapine fumarate [From Seroquel] Allergy (Unknown, Verified 03/18/20 08:36) Psychosis atomoxetine [From Strattera] Allergy (Verified 03/18/20 08:36) Past Medical History - Social History Smoking Status: Unknown if Ever Smoked Family History: Reviewed & Not Pertinent, Other - Past Medical History Cardiac Medical History: Reports: Hx Congestive Heart Failure - anxiety, Hx Hypercholesterolemia, Hx Hypertension - NO MEDICATION Denies: Hx Coronary Artery Disease, Hx Heart Attack Pulmonary Medical History: Reports: Hx Bronchitis, Hx Pneumonia, Hx Sleep Apnea Denies: Hx Asthma, Hx COPD Neurological Medical History: Reports: Hx Migraine. Denies: Hx Cerebrovascular Accident, Hx Seizures Renal/ Medical History: Denies: Hx Peritoneal Dialysis GI Medical History: Reports: Hx Gastroesophageal Reflux Disease, Hx Irritable Bowel, Hx Colonoscopy, Hx Endoscopy Musculoskeletal Medical History: Denies Hx Arthritis, Reports Hx Musculoskeletal Deformity, Reports Hx Musculoskeletal Trauma Psychiatric Medical History: Reports: Hx Anxiety, Hx Attention Deficit Hyperactivity Disorder, Hx Bipolar Disorder, Hx Depression, Hx Post Traumatic Stress Disorder Past Surgical History: Reports: Hx Adenoidectomy, Hx Cholecystectomy, Hx Tonsillectomy - UPPP for sleep apnea tonsils and adenoids and uvula, Hx Urinary Tract Surgery - Immunizations Immunizations up to date: Yes Hx Diphtheria, Pertussis, Tetanus Vaccination: Yes - 2012 Review of Systems - Review of Systems Constitutional: denies: Chills, Fever EENT: denies: Throat swelling Cardiovascular: Dizziness. denies: Chest pain, Palpitations Gastrointestinal: No symptoms reported Genitourinary: No symptoms reported Neurological/Psychological: Headaches. denies: Sensory change -: Yes All other systems reviewed and negative Physical Exam - Notes Notes: GENERAL_APPEARANCE: well_nourished, alert, cooperative, no_acute_distress, no_obvious_discomfort. VITALS: reviewed, see vital signs table. HEAD: 3 cm superficial laceration on top of scalp bleeding is controlled non- gaping no obvious foreign body EYES: PERRL, EOMI, conjunctiva_clear. NOSE: no_nasal_discharge. MOUTH: (-)decreased moisture. THROAT: no_tonsilar_inflammation, no_airway_obstruction. no_lymphadenopathy NECK: supple, no_neck_tenderness, (-)thyromegaly. BACK: no_back_tenderness. CHEST_WALL: no_chest_tenderness. LUNGS: no_wheezing, no_rales, no_rhonchi, (-)accessory muscle use, good air exchange bilateral. HEART: normal_rate, normal_rhythm, normal_S1, normal_S2, (-)S3, (-)S4, no_murmur, no_rub. ABDOMEN: normal_BS, soft, no_abd_tenderness, (-)guarding, (-)rebound, no_organomegaly, no_abd_masses. EXTREMITIES: strength 5/5 in all_extremities, good pulses in all_extremities, no_swelling\tenderness in the extremities, no_edema. SKIN: warm, dry, good_color, no_rash. MENTAL_STATUS: speech_clear, oriented_X_3, normal_affect, responds_appropriately to questions. NEURO: Neg Motor or Sensory Deficits on exam, CN 2-12 intact, DTR 2+ symmetric x 4, No cerbellar signs Course - Re-evaluation Re-evalutation: 03/18/20 08:29 39-year-old male who hit his head over the weekend. He has had some dizziness and headaches. We will CT scan his head. He has no neuro deficits had a negative neuro exam. CT the brain is negative. Patient neurologically intact. Spoke with the patient about head injury spoke about second impact syndrome. We will hold him out of work today and discharge him home 03/18/20 08:30 Patient states tetanus up-to-date 03/18/20 11:[address] is negative. Spoke with the patient about head injury. We will give him a note to return to work tomorrow - Diagnostic Test Radiology reviewed: Reports reviewed Radiology results interpreted by me: 03/18/20 11:[address] 03/18/20 09:11 IMPRESSION: NORMAL BRAIN CT WITHOUT CONTRAST. EVIDENCE OF ACUTE STROKE: NO. Discharge - Discharge Clinical Impression: Closed head injury Qualifiers: Encounter type: initial encounter Qualified Code(s): S09.90XA - Unspecified injury of head, initial encounter Scalp laceration Qualifiers: Encounter type: initial encounter Qualified Code(s): S01.01XA - Laceration without foreign body of scalp, initial encounter Condition: Good Disposition: HOME, SELF-CARE Instructions: Head Injury Precautions ([facility]) Forms: Return to Work Referrals: NATALYA CALIX NP [Primary Care Provider] - Follow up as needed
--- NOTE | 2020-03-18 10:43 | RADIOLOGY REPORT (SQ) ---
EXAM DESCRIPTION: CT HEAD WITHOUT IMAGES COMPLETED DATE/TIME: 03/18/2020 10:34 am REASON FOR STUDY: Head injury COMPARISON: 2018 TECHNIQUE: Axial images acquired through the brain without intravenous contrast. Images reviewed wi th bone, brain and subdural windows. Additional sagittal and coronal reconstructions were generated. Images stored on PACS. All CT scanners at this facility use dose modulation, iterative reconstruction, and/or weight based d osing when appropriate to reduce radiation dose to as low as reasonably achievable (ALARA). [facility]: Dose Right [facility]: CareDose [facility]: Dose Right [facility]: Teradose 4D [facility]: CoolClouds RADIATION DOSE: CT Rad equipment meets quality standard of care and radiation dose reduction techniq ues were employed. CTDIvol: 53.2 mGy. DLP: 1044 mGy-cm. mGy. LIMITATIONS: None. FINDINGS: VENTRICLES: Normal size and contour. CEREBRUM: No masses. No hemorrhage. No midline shift. No evidence for acute infarction. Normal gra y/white matter differentiation. No areas of low density in the white matter. CEREBELLUM: No masses. No hemorrhage. No alteration of density. No evidence for acute infarction. EXTRAAXIAL SPACES: No fluid collections. No masses. ORBITS AND GLOBE: No intra- or extraconal masses. Normal contour of globe without masses. CALVARIUM: No fracture. PARANASAL SINUSES: No fluid or mucosal thickening. SOFT TISSUES: No mass or hematoma. OTHER: No other significant finding. IMPRESSION: NORMAL BRAIN CT WITHOUT CONTRAST. EVIDENCE OF ACUTE STROKE: NO. COMMENT: Quality ID # [id number]: Final reports with documentation of one or more dose reduction techniques (e.g., Automated exposure control, adjustment of the mA and/or kV according to patient size, use of iterative reconstruction technique) TECHNICAL DOCUMENTATION: JOB ID: [id number] 2010 [employer]- All Rights Reserved Reading location - IP/workstation name: [email or web address]
[2020-03-18 11:27] VITALS: BP 138/86
== END 2020-03-18 11:27 | disposition home or self-care (01) ==
LOC: ER 06:02
DX: S09.90XA Unspecified injury of head, initial encounter (principal); S01.01XA Laceration without foreign body of scalp, initial encounter; R42 Dizziness and giddiness; W22.09XA Striking against other stationary object, initial encounter; I11.0 Hypertensive heart disease with heart failure; I50.9 Heart failure, unspecified; E78.00 Pure hypercholesterolemia, unspecified; Z91.040 Latex allergy status; Z88.6 Allergy status to analgesic agent
CPT/HCPCS: 70450; 99284

== ENCOUNTER 2020-03-23 11:27 | Emergency (ER) | payer MEDICAID ==
--- NOTE | 2020-03-23 12:11 | ER Document Report ---
ED Medical Screen (RME) - General Chief Complaint: Knee Pain Stated Complaint: LEFT KNEE PAIN Time Seen by Provider: 03/23/20 12:06 Primary Care Provider: NATALYA CALIX NP [Primary Care Provider] - Follow up as needed Mode of Arrival: Wheelchair Information source: Patient, Relative Notes: Patient is a 39-year-old male comes emergency room complaining of left knee pain. Patient states he has a chronic condition with the left knee and it gives out on him occasionally. Today he was working on his 40-eybti-sey child's crib trying to raise it when he felt a pop and is been unable to extend the knee since that point time. He states that has done this before and has been able to have it popped back in with assistance from a family member but today is unable to have a any relief and unable to move it at all. Patient is not ambulatory currently. He has been recommended to orthopedist but is not been unable to go to 1 secondary to family commitments and work. Physical exam: Patient is a well-nourished well-developed 39-year-old male was no apparent distress on examination his abdomen. Lungs: Bilateral breath sounds clear to auscultation. Cardiac regular rate and rhythm no murmurs auscultated. Lower extremities left knee primarily shows patient to be in a sitting position. Unable to do physical examination secondary to inability to move the leg wit hout severe pain. Further evaluation to be performed in back. I have greeted and performed a rapid initial assessment of this patient. A comprehensive ED assessment and evaluation of the patient, analysis of test results and completion of the medical decision making process will be conducted by additional ED providers. Dictation of this chart was performed using voice recognition software; therefore, there may be some unintended grammatical errors. TRAVEL OUTSIDE OF THE [place] IN LAST 30 DAYS: No - Related Data Allergies/Adverse Reactions: latex [Latex] Allergy (Mild, Verified 03/23/20 12:02) Generalized rash morphine [Morphine] Allergy (Unknown, Verified 03/23/20 12:02) Anaphylaxis olanzapine [From Zyprexa] Allergy (Unknown, Verified 03/23/20 12:02) Psychosis quetiapine fumarate [From Seroquel] Allergy (Unknown, Verified 03/23/20 12:02) Psychosis atomoxetine [From Strattera] Allergy (Verified 03/23/20 12:02) Past Medical History - Past Medical History Cardiac Medical History: Reports: Hx Congestive Heart Failure - anxiety, Hx Hypercholesterolemia, Hx Hypertension - NO MEDICATION Denies: Hx Coronary Artery Disease, Hx Heart Attack Pulmonary Medical History: Reports: Hx Bronchitis, Hx Pneumonia, Hx Sleep Apnea Denies: Hx Asthma, Hx COPD Neurological Medical History: Reports: Hx Migraine. Denies: Hx Cerebrovascular Accident, Hx Seizures Renal/ Medical History: Denies: Hx Peritoneal Dialysis GI Medical History: Reports: Hx Gastroesophageal Reflux Disease, Hx Irritable Bowel, Hx Colonoscopy, Hx Endoscopy Musculoskeltal Medical History: Denies Hx Arthritis, Reports Hx Musculoskeletal Deformity, Reports Hx Musculoskeletal Trauma Psychiatric Medical History: Reports: Hx Anxiety, Hx Attention Deficit Hyperactivity Disorder, Hx Bipolar Disorder, Hx Depression, Hx Post Traumatic Stress Disorder Past Surgical History: Reports: Hx Adenoidectomy, Hx Cholecystectomy, Hx Tonsillectomy - UPPP for sleep apnea tonsils and adenoids and uvula, Hx Urinary Tract Surgery - Immunizations Immunizations up to date: Yes Hx Diphtheria, Pertussis, Tetanus Vaccination: Yes - 2012 Physical Exam - Vital signs Vitals: Temp Pulse Resp BP Pulse Ox 98.6 F 95 16 148/99 H 96 03/23/20 11:33 03/23/20 11:33 03/23/20 11:33 03/23/20 11:33 03/23/20 11:33 Course - Vital Signs Vital signs: Temp Pulse Resp BP Pulse Ox 98.6 F 95 16 148/99 H 96 03/23/20 11:33 03/23/20 11:33 03/23/20 11:33 03/23/20 11:33 03/23/20 11:33 Doctor's Discharge - Discharge Referrals: NATALYA CALIX, EVENT DECORATOR AND DESIGNER [Primary Care Provider] - Follow up as needed
[2020-03-23] MEDS ORDERED: OXYCODONE-ACETAMINOPHEN 5-325 MG TABLET PO ONE (12:15)
[2020-03-23] MEDS ORDERED: KETOROLAC TROMETHAMINE 60 MG/2 ML SDV IM ONE (12:15)
--- NOTE | 2020-03-23 13:11 | RADIOLOGY REPORT (SQ) ---
EXAM DESCRIPTION: KNEE LEFT 3 VIEWS IMAGES COMPLETED DATE/TIME: 03/23/2020 12:29 pm REASON FOR STUDY: Locked knee COMPARISON: 01/13/2020 NUMBER OF VIEWS: Three views. TECHNIQUE: AP, lateral, and sunrise patella radiographic images acquired of the left knee. LIMITATIONS: None. FINDINGS: MINERALIZATION: Normal. BONES: No acute fracture or dislocation. No worrisome bone lesions. JOINT: No effusion. SOFT TISSUES: No soft tissue swelling. No radio-opaque foreign body. OTHER: No other significant finding. IMPRESSION: NEGATIVE STUDY OF THE LEFT KNEE. NO RADIOGRAPHIC EVIDENCE OF ACUTE INJURY. TECHNICAL DOCUMENTATION: JOB ID: [id number] 2010 [employer]- All Rights Reserved Reading location - IP/workstation name: [email or web address]
--- NOTE | 2020-03-23 14:18 | ER Document Report ---
ED Extremity Problem, Lower - General Chief Complaint: Knee Injury Stated Complaint: LEFT KNEE PAIN Time Seen by Provider: 03/23/20 12:06 Primary Care Provider: NATALYA CALIX NP [Primary Care Provider] - Follow up as needed Mode of Arrival: Wheelchair Information source: Patient Notes: Patient is a 39-year-old male who I originally saw in triage and was unable to s traighten his leg out totally felt he needed a bed at that time. Patient went back to x-ray and was able to straighten and 99% so I have re-assessed patient and take him back again. Patient states that earlier today he was attempting to adjust his [id number] crib and he felt a pop and a crack in his left knee. This is occurred before but he is always been a replace it back to straight with the aid of other people and at this time it would not go back to straight. Patient had difficult time ambulating at all because it would not straighten out. Since here for reevaluation. As stated earlier in the triage note patient states he has been told he needs to see an orthopedist but because of family obligations and work obligations he is not been able to do so. TRAVEL OUTSIDE OF THE [place] IN LAST 30 DAYS: No - HPI Patient complains to provider of: Injury - He does complain in the immobilizer., Pain Location: Knee - There was (LLQ) Occurred: Just prior to arrival Where: Home Onset/Duration: Sudden Quality of pain: Sharp, Throbbing Severity: Moderate Pain Level: 4 Context: Twisted Recent injury: Yes Associated symptoms: Unable to bear weight Exacerbated by: Movement, Walking Relieved by: Rest - Related Data Allergies/Adverse Reactions: latex [Latex] Allergy (Mild, Verified 03/23/20 12:02) Generalized rash morphine [Morphine] Allergy (Unknown, Verified 03/23/20 12:02) Anaphylaxis olanzapine [From Zyprexa] Allergy (Unknown, Verified 03/23/20 12:02) Psychosis quetiapine fumarate [From Seroquel] Allergy (Unknown, Verified 03/23/20 12:02) Psychosis atomoxetine [From Strattera] Allergy (Verified 03/23/20 12:02) Past Medical History - General Information source: Patient - Asthma monoarticular he has not, Relative - Social History Smoking Status: Current Every Day Smoker Chew tobacco use (# tins/day): No Frequency of alcohol use: Rare Drug Abuse: None Family History: Reviewed & Not Pertinent, Other - Past Medical History Cardiac Medical History: Reports: Hx Congestive Heart Failure - anxiety, Hx Hypercholesterolemia, Hx Hypertension - NO MEDICATION Denies: Hx Coronary Artery Disease, Hx Heart Attack Pulmonary Medical History: Reports: Hx Bronchitis, Hx Pneumonia, Hx Sleep Apnea Denies: Hx Asthma, Hx COPD Neurological Medical History: Reports: Hx Migraine. Denies: Hx Cerebrovascular Accident, Hx Seizures Renal/ Medical History: Denies: Hx Peritoneal Dialysis GI Medical History: Reports: Hx Gastroesophageal Reflux Disease, Hx Irritable Bowel, Hx Colonoscopy, Hx Endoscopy Musculoskeletal Medical History: Denies Hx Arthritis, Reports Hx Musculoskeletal Deformity, Reports Hx Musculoskeletal Trauma Psychiatric Medical History: Reports: Hx Anxiety, Hx Attention Deficit Hyperactivity Disorder, Hx Bipolar Disorder, Hx Depression, Hx Post Traumatic Stress Disorder Past Surgical History: Reports: Hx Adenoidectomy, Hx Cholecystectomy, Hx Tonsillectomy - UPPP for sleep apnea tonsils and adenoids and uvula, Hx Urinary Tract Surgery - Immunizations Immunizations up to date: Yes Hx Diphtheria, Pertussis, Tetanus Vaccination: Yes - 2012 Review of Systems - Review of Systems Constitutional: No symptoms reported EENT: No symptoms reported Cardiovascular: No symptoms reported Respiratory: No symptoms reported Gastrointestinal: No symptoms reported Genitourinary: No symptoms reported Male Genitourinary: No symptoms reported Musculoskeletal: Joint pain Skin: No symptoms reported Hematologic/Lymphatic: No symptoms reported Neurological/Psychological: No symptoms reported -: Yes All other systems reviewed and negative Physical Exam - Vital signs Vitals: Temp Pulse Resp BP Pulse Ox 98.6 F 95 16 148/99 H 96 03/23/20 11:33 03/23/20 11:33 03/23/20 11:33 03/23/20 11:33 03/23/20 11:33 Interpretation: Hypertensive - Notes Notes: PHYSICAL EXAMINATION: GENERAL: Well-appearing, well-nourished and in no acute distress. HEAD: Atraumatic, normocephalic. LUNGS: Breath sounds clear to auscultation bilaterally and equal. No wheezes rales or rhonchi. HEART: Regular rate and rhythm without murmurs Musculoskeletal: Examination patient's area concern is his left knee. Originally in triage patient was unable to extend his knee at all so examination was difficult. Now patient is gurney and he is able to extend at 95%. Patient has some mild tenderness at the proximal end of the tibia. He has some mild tenderness bilaterally on the lateral medial portions of the knee. There is no laxity noted at this time. Vascular exam is also normal. Patient has good cap refill in nailbeds of the toes of the left foot. Good strength against resistance at the ankle with flexion extension and rotation. Further review does show that patient is mostly tender at the attachment point at the tibial tuberosity. NEUROLOGICAL: Normal speech, normal gait. Normal sensory, motor exams PSYCH: Normal mood, normal affect. SKIN: Warm, Dry, normal turgor, no rashes or lesions noted. Course - Vital Signs Vital signs: Temp Pulse Resp BP Pulse Ox 98.6 F 95 16 148/99 H 96 03/23/20 11:33 03/23/20 11:33 03/23/20 11:33 03/23/20 11:33 03/23/20 11:33 Procedures - Immobilization Left Knee Time completed: 14:18 Immobilizer type: Knee immobilizer Performed by: PCT Post-Proc Neuro Vasc Exam: Normal Alignment checked and good: Yes Discharge - Discharge Clinical Impression: Tendinitis of left knee Internal derangement of knee Qualifiers: Laterality: left Qualified Code(s): M23.92 - Unspecified internal derangement of left knee Condition: Stable Disposition: HOME, SELF-CARE Instructions: Use of Crutches ([facility]), Ice & Elevation ([facility]), Suspected Internal Knee Injury ([facility]), Knee Immobilizing Splint ([facility]) Additional Instructions: As we discussed I believe this to be 1 of 2 possibilities. It could be internal derangement of your ligaments tendons or meniscus since it is an old injury that reactivates itself. And or you have a tendinitis in that area that flares up occasionally. 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 As we also discussed this can be fixed in ER you need to follow-up with an orthopedic doctor. If you do not have one I will give you the name of the orthopedist on-call that you contact his office on Wednesday to see if he can accommodate you. Take the medication as prescribed and should you have any other concerns or problems he can always return to ER for reevaluation. Use the knee immobilizer at all times including when you sleep tonight. You may loosen it slightly while sleeping but it will keep you from bending your knee while you are sleeping. I suggest either using ice or moist heat 3 times a day as well. You can also take Tylenol and ibuprofen for any discomfort and pain. Prescriptions: Methylprednisolone [Medrol Dosepack (4 mg/Tab) 21 Tab/Dosepak] 4 mg PO ASDIR PRN #21 tab.ds.pk PRN Reason: Forms: Elevated Blood Pressure, Return to Work Referrals: NATALYA CALIX STALLION MANAGER [Primary Care Provider] - Follow up as needed
[2020-03-23 14:32] VITALS: BP 143/94
== END 2020-03-23 15:10 | disposition home or self-care (01) ==
LOC: ER 11:27
DX: M76.52 Patellar tendinitis, left knee (principal); M23.92 Unspecified internal derangement of left knee; F17.200 Nicotine dependence, unspecified, uncomplicated; I50.9 Heart failure, unspecified; I11.0 Hypertensive heart disease with heart failure
CPT/HCPCS: 99283; 96372; 73562; J1885

== ENCOUNTER → 2020-08-07 | Outpatient (CLI) | payer MEDICAID ==
[2020-08-07 17:18] LABS: ABSOLUTE BASOPHILS # (AUTO) 0.1 10^3/uL (0.0-0.2); ABSOLUTE EOSINOPHILS # (AUTO) 0.2 10^3/uL (0.0-0.6); ABSOLUTE LYMPHOCYTES (AUTO) 4.1 10^3/uL (0.5-4.7); ABSOLUTE MONOCYTES (AUTO) 1.1 10^3/uL (0.1-1.4); ABSOLUTE NEUT (AUTO) 8.7 10^3/uL (1.7-8.2); BASOPHILS % (AUTO) 0.6 % (0-2); EOSINOPHILS % (AUTO) 1.2 % (0-6); HEMOGLOBIN 16.3 g/dL (13.5-17.0); LYMPHOCYTES % (AUTO) 28.8 % (13-45); MEAN CORPUSCULAR VOLUME 88 fl (80-97); MONOCYTES % (AUTO) 8.1 % (3-13); PLATELET COUNT 278 10^3/uL (150-450); RED BLOOD COUNT 5.45 10^6/uL (4.35-5.55); RED CELL DISTRIBUTION WIDTH 13.4 % (11.5-14.0); SEGMENTED NEUTROPHILS % (AUTO) 61.3 % (42-78); TOTAL CELLS COUNTED % (AUTO) 100 %; WHITE BLOOD COUNT 14.1 10^3/uL (4.0-10.5)
[2020-08-07 17:31] LABS: APPEARANCE,URINE CLEAR; BILIRUBIN,URINE NEGATIVE (NEGATIVE); COLOR,URINE YELLOW; GLUCOSE, URINE NEGATIVE (NEGATIVE); KETONES,URINE NEGATIVE (NEGATIVE); LEUKOCYTE ESTERASE,URINE NEGATIVE (NEGATIVE); NITRITE,URINE NEGATIVE (NEGATIVE); PROTEIN,URINE NEGATIVE (NEGATIVE); URINE SPECIFIC GRAVITY 1.011; UROBILINOGEN,URINE NEGATIVE mg/dL (<2.0)
[2020-08-07 17:32] LABS: ADD MANUAL MICROSCOPIC YES; AMORPHOUS SEDIMENT,UR 2+; WBC,URINE 0-1 /HPF
[2020-08-07 17:39] LABS: ALBUMIN 4.6 g/dL (3.5-5.0); ALKALINE PHOSPHATASE 103 U/L (38-126); AMYLASE 59 U/L (30-110); ANION GAP 10 (5-19); ASPARTATE AMINO TRANSFERASE 30 U/L (17-59); BILIRUBIN,DIRECT 0.2 mg/dL (0.0-0.4); BILIRUBIN,TOTAL 0.5 mg/dL (0.2-1.3); BLOOD UREA NITROGEN 12 mg/dL (7-20); CALCIUM 9.8 mg/dL (8.4-10.2); CARBON DIOXIDE 27 mmol/L (22-30); CHLORIDE 101 mmol/L (98-107); GLUCOSE 70 mg/dL (75-110); POTASSIUM 4.1 mmol/L (3.6-5.0); TOTAL PROTEIN 7.7 g/dL (6.3-8.2)
== END ==
LOC: OD 14:53
PROVIDERS: ATTEND Nurse Practitioner Family
DX: R10.13 Epigastric pain (principal); I10 Essential (primary) hypertension; R73.03 Prediabetes; E66.01 Morbid (severe) obesity due to excess calories
CPT/HCPCS: 36415; 80053; 81001; 82150; 83690; 85025

== ENCOUNTER 2020-09-09 22:38 | Emergency (ER) | payer MEDICAID ==
--- NOTE | 2020-09-09 23:41 | ER Document Report ---
ED Medical Screen (RME) - General Chief Complaint: Abdominal Pain Stated Complaint: ABDOMINAL PAIN Time Seen by Provider: 09/09/20 23:35 Primary Care Provider: NATALYA CAILX NP [Primary Care Provider] - Follow up as needed TRAVEL OUTSIDE OF THE [place] IN LAST 30 DAYS: No - HPI Notes: Patient is a 40-year-old male with a history of cholecystectomy who presents with diffuse abdominal pain that has worsened over the course of today. Patient describes most of his pain as midepigastric and right upper quadrant. He reports nausea but denies vomiting and fever. He reports chronic diarrhea and is scheduled for a endoscopy and colonoscopy in 2 days. - Related Data Allergies/Adverse Reactions: latex [Latex] Allergy (Mild, Verified 03/23/20 12:02) Generalized rash morphine [Morphine] Allergy (Unknown, Verified 03/23/20 12:02) Anaphylaxis olanzapine [From Zyprexa] Allergy (Unknown, Verified 03/23/20 12:02) Psychosis quetiapine fumarate [From Seroquel] Allergy (Unknown, Verified 03/23/20 12:02) Psychosis atomoxetine [From Strattera] Allergy (Verified 03/23/20 12:02) Past Medical History - Past Medical History Cardiac Medical History: Reports: Hx Congestive Heart Failure - anxiety, Hx Hypercholesterolemia, Hx Hypertension - NO MEDICATION Denies: Hx Coronary Artery Disease, Hx Heart Attack Pulmonary Medical History: Reports: Hx Bronchitis, Hx Pneumonia, Hx Sleep Apnea Denies: Hx Asthma, Hx COPD Neurological Medical History: Reports: Hx Migraine. Denies: Hx Cerebrovascular Accident, Hx Seizures Renal/ Medical History: Denies: Hx Peritoneal Dialysis GI Medical History: Reports: Hx Gastroesophageal Reflux Disease, Hx Irritable Bowel, Hx Colonoscopy, Hx Endoscopy Musculoskeltal Medical History: Denies Hx Arthritis, Reports Hx Musculoskeletal Deformity, Reports Hx Musculoskeletal Trauma Psychiatric Medical History: Reports: Hx Anxiety, Hx Attention Deficit Hyperactivity Disorder, Hx Bipolar Disorder, Hx Depression, Hx Post Traumatic Stress Disorder Past Surgical History: Reports: Hx Adenoidectomy, Hx Cholecystectomy, Hx Tonsillectomy - UPPP for sleep apnea tonsils and adenoids and uvula, Hx Urinary Tract Surgery - Immunizations Immunizations up to date: Yes Hx Diphtheria, Pertussis, Tetanus Vaccination: Yes - 2012 Physical Exam - Vital signs Vitals: Temp Pulse Resp BP Pulse Ox 98.1 F 110 H 17 150/107 H 98 09/09/20 22:42 09/09/20 22:42 09/09/20 22:42 09/09/20 22:42 09/09/20 22:42 - Abdominal Bowel sounds: Normal Tenderness: Nontender. No: McBurney's point, Lucero's sign Notes: Exam limited due to patient seated position in triage Course - Re-evaluation Re-evalutation: I have greeted and performed a rapid initial assessment of this patient. A comprehensive ED assessment and evaluation of the patient, analysis of test results and completion of medical decision making process will be conducted by an additional ED providers. - Vital Signs Vital signs: Temp Pulse Resp BP Pulse Ox 98.1 F 110 H 17 150/107 H 98 09/09/20 22:42 09/09/20 22:42 09/09/20 22:42 09/09/20 22:42 09/09/20 22:42 Doctor's Discharge - Discharge Referrals: NATALYA CALIX NP [Primary Care Provider] - Follow up as needed
[2020-09-10 00:01] LABS: ABSOLUTE BASOPHILS # (AUTO) 0.1 10^3/uL (0.0-0.2); ABSOLUTE EOSINOPHILS # (AUTO) 0.1 10^3/uL (0.0-0.6); ABSOLUTE LYMPHOCYTES (AUTO) 5.8 10^3/uL (0.5-4.7); ABSOLUTE MONOCYTES (AUTO) 1.2 10^3/uL (0.1-1.4); ABSOLUTE NEUT (AUTO) 8.1 10^3/uL (1.7-8.2); BASOPHILS % (AUTO) 0.5 % (0-2); EOSINOPHILS % (AUTO) 0.9 % (0-6); HEMOGLOBIN 16.4 g/dL (13.5-17.0); LYMPHOCYTES % (AUTO) 37.8 % (13-45); MEAN CORPUSCULAR VOLUME 86 fl (80-97); MONOCYTES % (AUTO) 8.1 % (3-13); PLATELET COUNT 290 10^3/uL (150-450); RED BLOOD COUNT 5.48 10^6/uL (4.35-5.55); RED CELL DISTRIBUTION WIDTH 13.3 % (11.5-14.0); SEGMENTED NEUTROPHILS % (AUTO) 52.7 % (42-78); TOTAL CELLS COUNTED % (AUTO) 100 %; WHITE BLOOD COUNT 15.4 10^3/uL (4.0-10.5)
[2020-09-10 00:05] LABS: APPEARANCE,URINE CLEAR; BILIRUBIN,URINE NEGATIVE (NEGATIVE); COLOR,URINE YELLOW; GLUCOSE, URINE NEGATIVE (NEGATIVE); KETONES,URINE NEGATIVE (NEGATIVE); LEUKOCYTE ESTERASE,URINE TRACE (NEGATIVE); NITRITE,URINE NEGATIVE (NEGATIVE); PROTEIN,URINE NEGATIVE (NEGATIVE); URINE SPECIFIC GRAVITY 1.005; UROBILINOGEN,URINE NEGATIVE mg/dL (<2.0)
[2020-09-10 00:14] LABS: ALBUMIN 4.5 g/dL (3.5-5.0); ALKALINE PHOSPHATASE 97 U/L (38-126); ANION GAP 10 (5-19); ASPARTATE AMINO TRANSFERASE 36 U/L (17-59); BILIRUBIN,DIRECT 0.2 mg/dL (0.0-0.4); BILIRUBIN,TOTAL 0.4 mg/dL (0.2-1.3); BLOOD UREA NITROGEN 7 mg/dL (7-20); CALCIUM 9.7 mg/dL (8.4-10.2); CARBON DIOXIDE 28 mmol/L (22-30); CHLORIDE 104 mmol/L (98-107); GLUCOSE 98 mg/dL (75-110); POTASSIUM 3.8 mmol/L (3.6-5.0); TOTAL PROTEIN 7.3 g/dL (6.3-8.2)
[2020-09-10] MEDS ORDERED: HYDROMORPHONE HCL INJ/PF 2 MG/ML AMPULE IV ONE (04:50)
--- NOTE | 2020-09-10 06:23 | RADIOLOGY REPORT (SQ) ---
EXAM DESCRIPTION: CT ABDOMEN PELVIS WITHOUT IV CONTRAST COMPLETED DATE/TME: 09/10/2020 05:51 CLINICAL HISTORY: 40 years, Male, RLQ/R flank pain. gb removed 3 yrs ago. COMPARISON: CT abdomen pelvis dated 1220. This exam was performed according to our departmental dose-optimization program which includes automated exposure control, adjustment of the mA and/or kVp according to patient size and/or use of iterative reconstruction technique where applicable. FINDINGS: Visualized lung bases are within normal limits. Liver, spleen, pancreas, adrenal glands and kidneys are within normal limits. No hydronephrosis or biliary dilatation. Status post cholecystectomy. There is no renal, ureteral or bladder calculus. No dilated loops of bowel to suggest obstruction. Mild amount of stool in the colon. The appendix is normal. No abdominal or pelvic lymphadenopathy. Abdominal aorta is within normal limits. Bladder is unremarkable. IMPRESSION: No evidence for acute appendicitis. No evidence for nephrolithiasis or urinary obstruction.
--- NOTE | 2020-09-10 07:14 | ER Document Report ---
ED General - General Chief Complaint: Upper Abdominal Pain Stated Complaint: ABDOMINAL PAIN Time Seen by Provider: 09/09/20 23:35 Primary Care Provider: NATALYA CALIX NP [Primary Care Provider] - Follow up as needed Notes: 40-year-old male history of chronic abdominal pain of unknown etiology, distant cholecystectomy approximately 3 years ago presents with approximately 1 day of right lower to right mid abdominal pain that feels like it is radiating to right flank associated with nausea and one episode of nonbloody emesis. Patient has since been tolerating p.o. without difficulty. Patient endorses chronic di arrhea with nonbloody nonblack stool approximately 2 episodes per day for the past several years. Patient also endorses similar abdominal pain to current symptoms approximately 1 month ago that resolved without intervention. Patient denies any fever, trauma, urinary symptoms, midline back pain, rash, alcohol or drug use, unexplained weight loss, melena, bright red blood per rectum, immunocompromise history TRAVEL OUTSIDE OF THE [place] IN LAST 30 DAYS: No - Related Data Allergies/Adverse Reactions: latex [Latex] Allergy (Mild, Verified 03/23/20 12:02) Generalized rash morphine [Morphine] Allergy (Unknown, Verified 03/23/20 12:02) Anaphylaxis olanzapine [From Zyprexa] Allergy (Unknown, Verified 03/23/20 12:02) Psychosis quetiapine fumarate [From Seroquel] Allergy (Unknown, Verified 03/23/20 12:02) Psychosis atomoxetine [From Strattera] Allergy (Verified 03/23/20 12:02) Home Medications: protonix, zofran, vrelar, klonpin, trazadone. Past Medical History - General Information source: Patient - Social History Smoking Status: Current Every Day Smoker Family History: Reviewed & Not Pertinent, Other - Past Medical History Cardiac Medical History: Reports: Hx Congestive Heart Failure - anxiety, Hx Hypercholesterolemia, Hx Hypertension - NO MEDICATION Denies: Hx Coronary Artery Disease, Hx Heart Attack Pulmonary Medical History: Reports: Hx Bronchitis, Hx Pneumonia, Hx Sleep Apnea Denies: Hx Asthma, Hx COPD Neurological Medical History: Reports: Hx Migraine. Denies: Hx Cerebrovascular Accident, Hx Seizures Renal/ Medical History: Denies: Hx Peritoneal Dialysis GI Medical History: Reports: Hx Gastroesophageal Reflux Disease, Hx Irritable Bowel, Hx Colonoscopy, Hx Endoscopy Musculoskeletal Medical History: Denies Hx Arthritis, Reports Hx Musculoskeletal Deformity, Reports Hx Musculoskeletal Trauma Psychiatric Medical History: Reports: Hx Anxiety, Hx Attention Deficit Hyperactivity Disorder, Hx Bipolar Disorder, Hx Depression, Hx Post Traumatic Stress Disorder Past Surgical History: Reports: Hx Adenoidectomy, Hx Cholecystectomy, Hx Tonsillectomy - UPPP for sleep apnea tonsils and adenoids and uvula, Hx Urinary Tract Surgery - Immunizations Immunizations up to date: Yes Hx Diphtheria, Pertussis, Tetanus Vaccination: Yes - 2012 Review of Systems - Review of Systems Notes: REVIEW OF SYSTEMS: CONSTITUTIONAL : Denies fever, chills, or sweats. EENT: Denies recent cold/sinus symptoms, denies throat pain CARDIOVASCULAR: Denies chest pain, RORO RESPIRATORY: Denies cough, denies shortness of breath. GASTROINTESTINAL: + abdominal pain, +nausea/vomiting. GENITOURINARY: Denies difficulty urinating, painful urination. MUSCULOSKELETAL: Denies neck pain, back pain. SKIN: Denies rash or skin lesions. HEMATOLOGIC : Denies easy bruising or bleeding. LYMPHATIC: Denies swollen, enlarged glands. NEUROLOGICAL: Denies headache, denies change in gait. PSYCHIATRIC: Denies anxiety or stress or depression. Physical Exam - Vital signs Vitals: Temp Pulse Resp BP Pulse Ox 98.1 F 110 H 17 150/107 H 98 09/09/20 22:42 09/09/20 22:42 09/09/20 22:42 09/09/20 22:42 09/09/20 22:42 - Notes Notes: PHYSICAL EXAMINATION: GENERAL: Well-appearing, well-nourished and in no acute distress. HEAD: Atraumatic, normocephalic. EYES: Pupils equal round and appropriate constriction, sclera anicteric, conjunctiva are normal. ENT: nares patent, moist mucous membranes. NECK: Normal range of motion, supple without lymphadenopathy LUNGS: Breath sounds clear to auscultation bilaterally and equal. No wheezes rales or rhonchi. HEART: Regular rate and rhythm without murmurs ABDOMEN: Soft, no right upper quadrant tenderness or Lucero sign, mild right lower quadrant tenderness without rebound or guarding, no masses, -CVAT EXTREMITIES: Normal range of motion, no pitting or edema. No cyanosis. NEUROLOGICAL: Awake, alert, conversing appropriately, moves all extremities spontaneously. PSYCH: Normal mood, normal affect. SKIN: Warm, Dry, normal turgor, no rashes or lesions noted. Course - Re-evaluation Re-evalutation: 09/10/20 07:13 Well-appearing patient, normal vital signs, no systemic symptoms, with right lower quadrant abdominal pain radiating to right flank. Small blood urinalysis, rule out renal colic, rule out appendicitis. No signs of obstruction, no signs of retained hepatic biliary stone and normal LFTs. Labs significant for leukocytosis of 15, patient had similar leukocytosis when he was seen a month ago for the same symptoms and that was no emergent etiology was found and symptoms resolved without intervention. Patient has colonoscopy and endoscopy scheduled for tomorrow and feels reassured that no emergent findings were found on his CT scan. Abdominal exam remains without any guarding or rebound and patient is appropriate for close outpatient follow-up with GI. Gave extensive return to ED precautions which she demonstrated understanding of. Will also recommend that he follow-up with urology for the microscopic hematuria. - Vital Signs Vital signs: Temp Pulse Resp BP Pulse Ox 98.5 F 77 18 142/91 H 99 09/10/20 03:29 09/10/20 03:29 09/10/20 03:29 09/10/20 03:29 09/10/20 03:29 - Laboratory Results Result Diagrams: 09/09/20 23:48 09/09/20 23:48 Laboratory Results Interpreted: 09/09/20 09/09/20 23:48 23:48 WBC 15.4 H Absolute Lymphs (auto) 5.8 H Urine Blood SMALL H Ur Leukocyte Esterase TRACE H Critical Laboratory Results Reviewed: No Critical Results - Radiology Results Critical Radiology Results Reviewed: No Critical Results Discharge - Discharge Clinical Impression: Abdominal pain Qualifiers: Abdominal location: right lower quadrant Qualified Code(s): R10.31 - Right lower quadrant pain Leukocytosis Qualifiers: Leukocytosis type: unspecified Qualified Code(s): D72.829 - Elevated white blood cell count, unspecified Disposition: HOME, SELF-CARE Additional Instructions: Abdominal Pain There are many causes of abdominal pain. Pain can mean a serious problem requiring surgery (such as appendicitis). It can also be an innocent problem that goes away on its own (such as a viral infection). Often, time must pass to determine the cause of pain. The physician does not feel that hospitalization is necessary, at present. Things may change within the next 24 hours. Call the doctor or come back for re- examination if any problems occur, such as: (1) Pain that becomes more severe, steady, or becomes concentrated in one specific area. Also, pain that is more severe with movement or coughing. (2) Vomiting that persists or becomes more frequent. (3) Blood in the vomitus, urine, or bowel movements. Blood in the stool may have a tarry or black appearance. (4) Shaking chills or fever greater than 100 degrees F. (5) The abdomen becomes more distended or swollen. (6) Bowel movements cease. (7) Failure to improve as expected. Follow-up with GI tomorrow as scheduled. If you have any worsening symptoms s uch as discussed above return to emergency department immediately. Follow-up with the primary doctor and urologist within 1 week. Referrals: MIN RUDD MD [VALERIA OVALLES] - Follow up in 1 week NATALYA CALIX NP [Primary Care Provider] - Follow up in 1 week
[2020-09-10 07:57] VITALS: BP 146/86
== END 2020-09-10 07:57 | disposition home or self-care (01) ==
LOC: ER 22:38
DX: R10.31 Right lower quadrant pain (principal); R10.813 Right lower quadrant abdominal tenderness; D72.829 Elevated white blood cell count, unspecified; R31.29 Other microscopic hematuria; R11.2 Nausea with vomiting, unspecified; I10 Essential (primary) hypertension; K21.9 Gastro-esophageal reflux disease without esophagitis; F17.200 Nicotine dependence, unspecified, uncomplicated; F32.9 Major depressive disorder, single episode, unspecified; F41.9 Anxiety disorder, unspecified; Z79.899 Other long term (current) drug therapy; Z90.49 Acquired absence of other specified parts of digestive tract; Z91.040 Latex allergy status; Z87.892 Personal history of anaphylaxis; Z88.5 Allergy status to narcotic agent; Z88.6 Allergy status to analgesic agent; Z88.8 Allergy status to other drugs, medicaments and biological substances
CPT/HCPCS: 99285; 96374; 36415; 83690; 85025; 80053; 81001; 74176; J1170

== ENCOUNTER 2020-09-11 06:56 | Day surgery (SDC) | payer MEDICAID ==
[2020-09-11] MEDS ORDERED: PROPOFOL INJ 200 MG/20 ML VIAL IV ONE (07:06)
[2020-09-11 10:44] VITALS: BP 120/82
--- NOTE | 2020-09-11 17:45 | Operative Report ---
Operative Report DATE OF SURGERY: 09/11/20 Operative Report: The risk, benefits and alternatives of the procedure including the risk of bleeding, perforation requiring surgery have been explained to the patient in detail and informed consent has been obtained. Patient is placed in left, lateral decubital position. Timeout was called. Propofol medication is administered. Rectal examination is done which did not reveal any masses, tears or fissures. An Olympus videoscope was introduced into the patient's rectum. Scope was then carefully advanced all the way to the cecum. Cecum was identified by the usual anatomical landmarks including the ileocecal valve as well as the appendiceal office. Photodocumentation is obtained. Scope was then sequentially pulled back via the various segments of the colon including the ascending colon, flexure, transverse colon, splenic flexure, descending colon finally into the rectosigmoid portions of the colon. Retroflexion maneuvers performed. The risks benefits and alternatives of the procedure explained to the patient in detail and informed consent is obtained.A GIF Olympus video scope was inserted into the patient's mouth and hypopharynx ,the esophagus is identified intubated and insufflated, the scope was then advanced through the esophagus stomach and duodenum ,retroflexion maneuver is done ,the esophagus stomach and first and second portions of the duodenum examined PREOPERATIVE DIAGNOSIS: Personal history of polyps. Gastroesophageal reflux disease POSTOPERATIVE DIAGNOSIS: Duodenitis. Gastric erosions status post biopsy. Mild esophagitis. Somewhat inadequate prep. Transverse colon polyp removed via snare polypectomy and retrieved. Internal hemorrhoids OPERATION: Colonoscopy with snare polypectomy: Colonoscopy with biopsy. EGD with biopsy SURGEON: MONIK DING ANESTHESIA: LMAC TISSUE REMOVED OR ALTERED: As noted above COMPLICATIONS: None. ESTIMATED BLOOD LOSS: None. INTRAOPERATIVE FINDINGS: As noted above. PROCEDURE: Patient tolerated procedure well. No immediate postprocedure complications are noted. Patient is discharged in good condition. Discharge date 09/11/2020. Discharge diet: Regular. Discharge activity: Regular. 2 to 3-week follow-up to discuss findings. Patient is instructed call the office or proceed to the emergency room should there be any further problems or questions. Surveillance next year due to inadequate prep, personal history of polyps as well as finding of colon polyp
== END 2020-09-11 10:50 | disposition home or self-care (01) ==
LOC: OROUT 06:56
PROVIDERS: ATTEND Internal Medicine Gastroenterology
DX: K29.60 Other gastritis without bleeding (principal); B96.81 Helicobacter pylori [H. pylori] as the cause of diseases classified elsewhere; K63.5 Polyp of colon; K29.80 Duodenitis without bleeding; K25.9 Gastric ulcer, unspecified as acute or chronic, without hemorrhage or perforation; K64.8 Other hemorrhoids; K21.00 Gastro-esophageal reflux disease with esophagitis, without bleeding; G47.33 Obstructive sleep apnea (adult) (pediatric); E66.9 Obesity, unspecified; F31.9 Bipolar disorder, unspecified; Z86.010 Personal history of colon polyps; F17.210 Nicotine dependence, cigarettes, uncomplicated; Z79.899 Other long term (current) drug therapy; Z80.0 Family history of malignant neoplasm of digestive organs; Z87.19 Personal history of other diseases of the digestive system; Z20.822 Contact with and (suspected) exposure to COVID-19; F41.9 Anxiety disorder, unspecified; F43.10 Post-traumatic stress disorder, unspecified; Z68.42 Body mass index [BMI] 45.0-49.9, adult; Z79.1 Long term (current) use of non-steroidal anti-inflammatories (NSAID)
CPT/HCPCS: 43239; 45380; 45385; 88305 ×2; 00813; J2704; 813